=== PATIENT | male | born 1960 | race Caucasian/White ===

== ENCOUNTER 2021-04-18 13:11 | Inpatient (IN) ==
--- NOTE | 2021-04-18 13:16 | Emergency Department Note ---
Impression & Plan Bilateral pulmonary embolism, Primary adenocarcinoma of esophagus with metastasis ED Provider Note NAME: RUEL TURCIOS AGE: 60 SEX: M : 1960 ARRIVES VIA: Ambulance INFORMANT: Patient, ED PROVIDER(S): Mark Patton MD Chief Complaint: Shortness of breath HPI: Patient was seen due to concern for worsening shortness of breath. The patient unfortunately does have a history of esophageal cancer with metastases. The patient has received chemo and radiation treatment. The patient did have a recent thoracentesis completed last week with pulmonology. Patient denies any fevers or chills. He is vaccinated for Covid. Patient states that the shortness of breath is gotten worse progressively over the last 2 weeks. Patient denies any prior history of heart failure. The patient has no known history of DVT or PE. The patient does feel better with oxygen and sitting upright. The patient is a non-smoker. Patient denies any nausea or vomiting. The patient has had some difficulty with tolerating by mouth due to the patient's prior history of esophageal cancer. Patient has followed at [facility] but is transferring care locally with Dr. Anderson. Patient reportedly was in the low 90s prior to arrival. ROS: See HPI for pertinent positives and negatives. A total of 10 systems were reviewed and otherwise negative. Past medical history: See below Surgical history: See below Social history: See below Physical Exam: GENERAL: Mildly uncomfortable in appearance, wearing a mask. EYE EXAM: Normal conjunctiva. PERRL, no anisocoria and EOM's grossly intact w/o pain. NECK: Supple, no nuchal rigidity, no adenopathy, non-tender. No signs of meningismus. FROM of the neck with good chin to chest and neck extension. No stridor. LUNGS: Scant crackles bilateral bases. Normal chest wall mechanics. HEART: Tachycardic and regular, no MRG. ABDOMEN: Abdomen soft, non-tender, normo-active bowel sounds, no masses, no rebound or guarding. BACK: No CVA TTP. SKIN: No rashes and no bruising. UPPER EXTREMITIES: Upper extremities are grossly normal. LOWER EXTREMITIES: Grossly normal, no edema. Negative Homans' sign bilaterally. NEURO EXAM: A&O x3, cranial nerves II-XII grossly intact, normal speech, moves all 4 extremities on command w/o issue. Differential diagnoses: Reactive airway disease, pneumonia, pneumothorax, COPD, CHF, infections, cardiac ischemia, pulmonary embolism, musculoskeletal, gastrointestinal, as well as other pathologies. Course: Patient was seen and evaluated the bedside. Full history physical exam was performed. EKG interpreted by me Sinus tachycardia, rate of 103, normal intervals, normal axis, T wave inversion in lead III and aVF. No ST changes. Imaging Studies: See Below Cardiac monitoring: An order was placed for continuous cardiac monitoring. The monitor shows a rate of 102 with tachycardic and regular rhythm. MDM: Patient was seen due to concern for shortness of breath. Blood work was obtained and the patient did have a CT angiography completed. White count is normal. The patient's platelet count is unremarkable. Kidney function is otherwise unremarkable. Covid negative. CT angiography does show concern for bilateral PEs. I did give the on-call hospitalist who requested Lovenox. This was ordered. Heparin canceled. Patient was to be admitted by Dr. Nayak. Patient is tolerating nasal cannula at this time. Do not believe he requires TPA. Critical Care: I have personally spent 47 minutes of critical care time in direct management of this patient. This includes bedside care, interpretation of diagnostic studies, and testing, discussion with consultants, patient, and family members, and other require inpatient management activities. This 47 minutes is in excess of all separately billable procedures. Past Med/Surg History Medical History Dyslipidemia Hypothyroidism PORSHA on CPAP Primary adenocarcinoma of esophagus with metastasis Surgical History H/O inguinal hernia repair History of vasectomy Family History Father Heart disease Brother Heart disease Brother Heart disease Social History Smoking Status: Former smoker Hx Alcohol Use: No Hx Substance Use: No Preferred Language: Bahamian Communication Ability: Effective Supervisor Ditching Required: No Beliefs That Will Affect Care: None Current Living Situation: Spouse Feels Safe at Home: Yes Safety Concerns: Feels Safe At This Time Assistive Devices: Oxygen - Continuous Allergies Allergies Allergy/AdvReac Type Severity Reaction Status Date / Time No Known Allergies Allergy Unverified 04/18/21 15:01 Home Meds Home Medications Medication Instructions Recorded Confirmed atorvastatin 40 mg tablet (Lipitor) 40 mg PO DAILY 04/18/21 04/18/21 baclofen 10 mg tablet 10 mg PO DAILY 04/18/21 04/18/21 levothyroxine 112 mcg tablet 112 mcg PO DAILY 04/18/21 04/18/21 (Synthroid) lorazepam 0.5 mg tablet 1 mg PO Q8H PRN 04/18/21 04/18/21 olanzapine 5 mg tablet 5 mg PO HS 04/18/21 04/18/21 omeprazole 40 mg capsule,delayed 40 mg PO DAILY 04/18/21 04/18/21 release ondansetron HCl 8 mg tablet 8 mg PO Q8H PRN 04/18/21 04/18/21 oxycodone 10 mg tablet 10 mg PO Q4H PRN 04/18/21 04/18/21 prochlorperazine maleate 10 mg 10 mg PO Q6H PRN 04/18/21 04/18/21 tablet Results & Data (ED) Vital Signs Vital Signs - 24 hr 04/18/21 13:17 04/18/21 13:30 04/18/21 13:39 Temperature 36.7 C Temperature Source Oral Pulse Rate 102 H 100 H 106 H Pulse Rate [Apical] Pulse Rate from SpO2 Sensor 102 H 99 H Pulse Rhythm Regular Pulse Strength Normal Respiratory Rate 18 16 22 Respiratory Effort / Characteristics Non-Labored Spontaneous Respiratory Depth Normal Blood Pressure 103/70 Blood Pressure Mean 81 Blood Pressure Position Sitting Pulse Oximetry 95 96 92 Oxygen Delivery Method Nasal Cannula Oxygen Flow Rate Sepsis Recent Fever Within 48 Hours No Sepsis New/Unexplained Change in Mental Status N/A Sepsis Action Taken by Nursing No Action Required 04/18/21 13:44 04/18/21 14:00 Temperature Temperature Source Pulse Rate 106 H Pulse Rate [Apical] 102 H Pulse Rate from SpO2 Sensor 105 H Pulse Rhythm Pulse Strength Respiratory Rate 16 20 Respiratory Effort / Characteristics Spontaneous Respiratory Depth Blood Pressure Blood Pressure Mean Blood Pressure Position Pulse Oximetry 96 94 Oxygen Delivery Method Nasal Cannula Oxygen Flow Rate 2 Sepsis Recent Fever Within 48 Hours Sepsis New/Unexplained Change in Mental Status Sepsis Action Taken by [facility] Medications Current Medication List: was personally reviewed by me Laboratory Data Attestation: I reviewed the patient's lab results. Result diagrams: 04/19/21 07:25 10/18/21 07:25 Lab Results 04/18/21 04/18/21 04/18/21 Range/Units 14:13 14:13 14:13 WBC 8.41 (4.8-10.8) K/uL RBC 4.45 L (4.7-6.1) M/uL Hgb 12.6 L (14.0-18.0) g/dL Hct 38.3 L (42-52) % MCV 86.1 (80-100) fL MCH 28.3 (25-34) pg MCHC 32.9 (32-36) g/dL RDW Std Deviation 41.9 (36.4-46.3) fL RDW Coeff of Larry 13.5 (11.5-14.5) % Plt Count 126 L (130-400) K/uL MPV 9.4 (7.4-10.4) fL Immature Gran % (Auto) 1.9 % Neut % (Auto) 84.0 % Lymph % (Auto) 6.3 % Cataño % (Auto) 6.4 % Eos % (Auto) 1.0 % Baso % (Auto) 0.4 % Neut # (Auto) 7.07 H (1.4-6.5) K/uL Lymph # (Auto) 0.53 L (1.2-3.4) K/uL Cataño # (Auto) 0.54 (0.11-0.59) K/uL Eos # (Auto) 0.08 (0-0.5) K/uL Baso # (Auto) 0.03 (0-0.2) K/uL Immature Gran # (Auto) 0.16 H (0.00-0.02) K/uL APTT (21.0-31.0) Seconds PTT Ratio Sodium 133 L (136-145) mmol/L Potassium 3.9 (3.5-5.1) mmol/L Chloride 100 (98-107) mmol/L Carbon Dioxide 25 (21-32) mmol/L Anion Gap 9.0 (3-11) BUN 17 (7-18) mg/dl Creatinine 1.04 (0.6-1.4) mg/dl Est Cr Clr Drug Dosing 77.4 ml/min Est GFR ( Amer) 91.3 ml/min Est GFR (Non-Af Amer) 78.8 ml/min BUN/Creatinine Ratio 16.6 (10-20) Glucose 136 H (70-99) mg/dl Calcium 7.8 L (8.5-10.1) mg/dl Total Bilirubin 0.7 (0.2-1) mg/dl AST 15 (15-37) U/L ALT 16 (12-78) U/L Alkaline Phosphatase 69 (45-117) U/L Troponin I < 0.015 (0-0.045) ng/ml NT-Pro-B Natriuret Pep 191 (0-900) pg/ml Total Protein 6.2 L (6.4-8.2) gm/dl Albumin 2.2 L (3.4-5.0) gm/dl Globulin 4.0 (2.5-4.0) gm/dl Albumin/Globulin Ratio 0.6 L (0.9-2) COVID-19 Eval Order Covid19 at [facility] SARS-CoV-2 (PCR) (Negative) 04/18/21 04/18/21 Range/Units 14:13 14:13 WBC (4.8-10.8) K/uL RBC (4.7-6.1) M/uL Hgb (14.0-18.0) g/dL Hct (42-52) % MCV (80-100) fL MCH (25-34) pg MCHC (32-36) g/dL RDW Std Deviation (36.4-46.3) fL RDW Coeff of Larry (11.5-14.5) % Plt Count (130-400) K/uL MPV (7.4-10.4) fL Immature Gran % (Auto) % Neut % (Auto) % Lymph % (Auto) % Cataño % (Auto) % Eos % (Auto) % Baso % (Auto) % Neut # (Auto) (1.4-6.5) K/uL Lymph # (Auto) (1.2-3.4) K/uL Cataño # (Auto) (0.11-0.59) K/uL Eos # (Auto) (0-0.5) K/uL Baso # (Auto) (0-0.2) K/uL Immature Gran # (Auto) (0.00-0.02) K/uL APTT 27.6 (21.0-31.0) Seconds PTT Ratio 1.0 Sodium (136-145) mmol/L Potassium (3.5-5.1) mmol/L Chloride (98-107) mmol/L Carbon Dioxide (21-32) mmol/L Anion Gap (3-11) BUN (7-18) mg/dl Creatinine (0.6-1.4) mg/dl Est Cr Clr Drug Dosing ml/min Est GFR ( Amer) ml/min Est GFR (Non-Af Amer) ml/min BUN/Creatinine Ratio (10-20) Glucose (70-99) mg/dl Calcium (8.5-10.1) mg/dl Total Bilirubin (0.2-1) mg/dl AST (15-37) U/L ALT (12-78) U/L Alkaline Phosphatase (45-117) U/L Troponin I (0-0.045) ng/ml NT-Pro-B Natriuret Pep (0-900) pg/ml Total Protein (6.4-8.2) gm/dl Albumin (3.4-5.0) gm/dl Globulin (2.5-4.0) gm/dl Albumin/Globulin Ratio (0.9-2) COVID-19 Eval Order SARS-CoV-2 (PCR) NEGATIVE (Negative) Administered Medications Atorvastatin Calcium (Atorvastatin 40 Mg Tab) 40 mg PO DAILY MARYAN Stop: 05/19/21 08:59 Last Admin: 04/19/21 08:04 Dose: 40 mg Documented by: [id number] Baclofen (Baclofen 10 Mg Tab) 10 mg PO DAILY MARYAN Stop: 05/19/21 08:59 Last Admin: 04/19/21 08:04 Dose: 10 mg Documented by: [id number] Enoxaparin Sodium (Enoxaparin 80 Mg/0.8 Ml Syr) 80 mg SQ Q12H MARYAN Stop: 05/18/21 16:59 Last Admin: 04/19/21 06:02 Dose: 80 mg Documented by: [id number] Admin: 04/18/21 17:12 Dose: 80 mg Documented by: [id number] Guaifenesin (Guaifenesin 600 Mg Tabcr) 600 mg PO Q12 MARYAN Stop: 05/18/21 21:13 Last Admin: 04/19/21 08:03 Dose: 600 mg Documented by: [id number] Admin: 04/18/21 22:33 Dose: 600 mg Documented by: [id number] Sodium Chloride (Nss 1000ml) 1,000 mls @ 125 mls/hr IV .Q8H MARYAN Stop: 05/18/21 16:29 Last Admin: 04/19/21 06:03 Dose: 125 mls/hr Documented by: [id number] Infusion: 04/19/21 05:44 Dose: 125 mls/hr Documented by: [id number] Admin: 04/18/21 21:44 Dose: 125 mls/hr Documented by: [id number] Infusion: 04/18/21 21:44 Dose: 125 mls/hr Documented by: [id number] Admin: 04/18/21 17:12 Dose: 125 mls/hr Documented by: [id number] Piperacillin Sod/Tazobactam (Sod 3.375 gm/ Dextrose) 115 mls @ 28.75 mls/hr IV Q8H MARYAN; Protocol Stop: 04/26/21 01:59 Last Infusion: 04/19/21 05:14 Dose: 0 mls/hr Documented by: [id number] Admin: 04/19/21 01:11 Dose: 28.8 mls/hr Documented by: [id number] Levothyroxine Sodium (Levothyroxine Sodium 112 Mcg Tablet) 112 mcg PO DAILYBB MARYAN Stop: 05/19/21 06:29 Last Admin: 04/19/21 06:03 Dose: 112 mcg Documented by: [id number] Olanzapine (Olanzapine 5 Mg Tablet) 5 mg PO HS MARYAN Stop: 05/18/21 21:13 Last Admin: 04/18/21 22:33 Dose: 5 mg Documented by: [id number] Oxycodone HCl (Oxycodone Hcl Ir 5 Mg Tab (Immediate Release)) 10 mg PO Q4H PRN PRN Reason: Pain Stop: 05/02/21 21:13 Last Admin: 04/19/21 08:06 Dose: 10 mg Documented by: [id number] Pantoprazole Sodium (Pantoprazole 40 Mg Tab) 40 mg PO DAILY MARYAN Stop: 05/19/21 08:59 Last Admin: 04/19/21 08:03 Dose: 40 mg Documented by: [id number] Discontinued Medications Albuterol (Albut/Ipratrop 3mg/0.5mg Neb 3 Ml Vial) 3 ml INH NOW STA Stop: 04/18/21 13:26 Last Admin: 04/18/21 13:43 Dose: 3 ml Documented by: [id number] Calcium Gluconate () 1,000 mg in 60 mls @ 240 mls/hr IV NOW STA Stop: 04/18/21 15:26 Last Infusion: 04/18/21 16:10 Dose: 0 mls/hr Documented by: [id number] Admin: 04/18/21 15:52 Dose: 240 mls/hr Documented by: [id number] Piperacillin Sod/Tazobactam (Sod 4.5 gm/ Dextrose) 120 mls @ 200 mls/hr IV 2200 ONE; Protocol Stop: 04/18/21 22:35 Last Infusion: 04/18/21 23:08 Dose: 0 mls/hr Documented by: [id number] Admin: 04/18/21 22:32 Dose: 200 mls/hr Documented by: [id number] Ioversol (Optiray 320 125ml) 112 ml IV ONCE ONE Stop: 04/18/21 15:37 Last Admin: 04/18/21 15:36 Dose: 112 ml Documented by: [id number] Methylprednisolone (Methylprednisolone 125 Mg/2 Ml Vial) 40 mg IV NOW STA Stop: 04/18/21 13:26 Last Admin: 04/18/21 14:20 Dose: 40 mg Documented by: [id number] Miscellaneous Information (Consult Pharmacy) 1 ea N/A NOW STA Stop: 04/18/21 18:26 Last Admin: 04/19/21 00:46 Dose: 1 ea Documented by: [id number] Imaging Data Radiologist's Impression: Chest CTA 04/18/21 13:25 CT ANGIOGRAPHY OF THE CHEST, PULMONARY EMBOLUS PROTOCOL CLINICAL HISTORY: Dyspnea, h/o esophageal CA, recent thoracentesis COMPARISON STUDY: Chest radiograph performed earlier today. TECHNIQUE: Following IV administration of 112 mL of Optiray, helical axial images of the chest were obtained utilizing the pulmonary embolus protocol. Maximal intensity projections and sagittal and coronal reformats were viewed on an independent 3D workstation. IV contrast was administered without complication. Automated exposure control was utilized for the study. A dose lowering technique was utilized adhering to the principles of ALARA. CT DOSE: 421.02 mGy.cm FINDINGS: Right subclavian [id number] is in place. Extensive right-sided pulmonary emboli are present. These include emboli within the distal right pulmonary artery. Several small left-sided pulmonary emboli are present. There is no definite CT evidence for right heart strain. No pericardial effusion is present. A small left pleural effusion is noted. There is no pneumothorax. Extensive left lower lobe airspace opacity is present. Foci of diminished parenchymal enhancement within the consolidated left lower lobe are noted. Innumerable pulmonary nodules are noted. Index right upper lobe nodule on image 199 measures 1.3 cm. Many of these nodules have irregular margins. Central airways are patent. Note is made of masslike thickening at the gastroesophageal junction. There is no pericardial effusion. There are multiple hypodense hepatic lesions which measure up to 2.5 cm. There is an indeterminate 1.5 cm nodule along the anterior aspect of the spleen. No suspicious lesions are identified within visualized skeletal structures. IMPRESSION: 1. Extensive right-sided pulmonary emboli and several small left-sided pulmonary emboli. 2. Pulmonary and hepatic metastases, as described above. 3. Mass-like thickening at the gastroesophageal junction which could reflect the primary tumor. 4. Small left pleural effusion. Extensive left lower lobe and lingular opacity. This could reflect pneumonia or atelectasis. Underlying infarct within left lower lobe cannot be excluded. ACT 112: Negative or not required by law. Electronically signed by: Tavo Pham M.D. 04/18/2021 3:57 PM Chest X-Ray 04/18/21 13:25 XR chest 1V portable CLINICAL HISTORY: Dyspnea, h/o esophageal CA, recent thoracentesis COMPARISON STUDY: No previous studies for comparison. FINDINGS: Right subclavian [id number] is in place. There is no pneumothorax. Small left pleural effusion is noted with left basilar opacity. No pneumothorax is present. There is reticulonodular interstitial thickening. IMPRESSION: 1. Small left pleural effusion with left basilar opacity. No pneumothorax. 2. Nonspecific reticulonodular interstitial thickening. ACT 112: Negative or not required by law. Electronically signed by: Tavo Pham M.D. 04/18/2021 1:36 PM Discharge Plan Visit Data Chief Complaint: Shortness of Breath/Dyspnea Stated Complaint: SOB ED Provider: Mark Patton Discharge Problem: Bilateral pulmonary embolism, Primary adenocarcinoma of esophagus with metastasis Patient Disposition: Admitted As Inpatient Discharge Instructions Interventions: ED Discharge Assessment Last Done: 04/18/21 19:55
[2021-04-18] MEDS ORDERED: ALBUT/IPRATROP 3MG/0.5MG NEB 3 ML VIAL INH STA (13:25)
[2021-04-18] MEDS ORDERED: methylPREDNISolone 125 MG/2 ML VIAL IV STA (13:25)
--- NOTE | 2021-04-18 13:38 | XRay Report ---
XR chest 1V portable CLINICAL HISTORY: Dyspnea, h/o esophageal CA, recent thoracentesis COMPARISON STUDY: No previous studies for comparison. FINDINGS: Right subclavian [id number] is in place. There is no pneumothorax. Small left pleural ef fusion is noted with left basilar opacity. No pneumothorax is present. There is reticulonodular inter stitial thickening. IMPRESSION: 1. Small left pleural effusion with left basilar opacity. No pneumothorax. 2. Nonspecific reticulonodular interstitial thickening. ACT 112: Negative or not required by law. Electronically signed by: Tavo Pham M.D. 04/18/2021 1:36 PM
[2021-04-18 14:22] LABS: Basophils # (auto) 0.03 K/uL (0-0.2); Basophils % (auto) 0.4 %; Eosinophils # (auto) 0.08 K/uL (0-0.5); Hematocrit (blood only) 38.3 % (42-52); Hemoglobin 12.6 g/dL (14.0-18.0); Immature Granulocytes # (auto) 0.16 K/uL (0.00-0.02); Immature Granulocytes % (auto) 1.9 %; Lymphocytes # (auto) 0.53 K/uL (1.2-3.4); Lymphocytes % (auto) 6.3 %; Mean Corpuscular Hemoglobin 28.3 pg (25-34); Mean Corpuscular Hgb Conc 32.9 g/dL (32-36); Mean Corpuscular Volume 86.1 fL (80-100); Mean Platelet Volume 9.4 fL (7.4-10.4); Monocytes # (auto) 0.54 K/uL (0.11-0.59); Monocytes % (auto) 6.4 %; Neutrophils # (auto) 7.07 K/uL (1.4-6.5); Platelet Count 126 K/uL (130-400); RDW Coefficient of Variation 13.5 % (11.5-14.5); RDW Standard Deviation 41.9 fL (36.4-46.3); Red Blood Count 4.45 M/uL (4.7-6.1); White Blood Count 8.41 K/uL (4.8-10.8)
[2021-04-18 14:42] LABS: Alanine Aminotransferase 16 U/L (12-78); Albumin Level 2.2 gm/dl (3.4-5.0); Aspartate Aminotransferase 15 U/L (15-37); BUN Creatinine Ratio 16.6 (10-20); Blood Urea Nitrogen 17 mg/dl (7-18); Calcium 7.8 mg/dl (8.5-10.1); Carbon Dioxide 25 mmol/L (21-32); Chloride 100 mmol/L (98-107); Creatinine Clr Calc Pharmacy 77.4 ml/min; Est GFR (African American) 91.3 ml/min; Est GFR (Non-African American) 78.8 ml/min; Glucose 136 mg/dl (70-99); Potassium 3.9 mmol/L (3.5-5.1); Sodium 133 mmol/L (136-145)
[2021-04-18 14:47] LABS: Albumin Globulin Ratio 0.6 (0.9-2); Alkaline Phosphatase 69 U/L (45-117); Bilirubin,Total 0.7 mg/dl (0.2-1); NT Pro B Type Natriuretic Pept 191 pg/ml (0-900); Total Protein 6.2 gm/dl (6.4-8.2); Troponin I < 0.015 ng/ml (0-0.045)
[2021-04-18] MEDS ORDERED: CALCIUM GLUCONATE 1,000 MG/60 ML BAG IV STA (15:12)
[2021-04-18] MEDS ORDERED: OPTIRAY 320 125ml IV ONE (15:36)
--- NOTE | 2021-04-18 15:58 | CT Scan Report ---
CT ANGIOGRAPHY OF THE CHEST, PULMONARY EMBOLUS PROTOCOL CLINICAL HISTORY: Dyspnea, h/o esophageal CA, recent thoracentesis COMPARISON STUDY: Chest radiograph performed earlier today. TECHNIQUE: Following IV administration of 112 mL of Optiray, helical axial images of the chest were o btained utilizing the pulmonary embolus protocol. Maximal intensity projections and sagittal and cor onal reformats were viewed on an independent 3D workstation. IV contrast was administered without co mplication. Automated exposure control was utilized for the study. A dose lowering technique was ut ilized adhering to the principles of ALARA. CT DOSE: 421.02 mGy.cm FINDINGS: Right subclavian [id number] is in place. Extensive right-sided pulmonary emboli are pre sent. These include emboli within the distal right pulmonary artery. Several small left-sided pulmona ry emboli are present. There is no definite CT evidence for right heart strain. No pericardial effusi on is present. A small left pleural effusion is noted. There is no pneumothorax. Extensive left lower lobe airspace opacity is present. Foci of diminished parenchymal enhancement within the consolidated left lower lobe are noted. Innumerable pulmonary nodules are noted. Index right upper lobe nodule on image 199 measures 1.3 cm. Many of these nodules have irregular margins. Central airways are patent. Note is made of masslike thickening at the gastroesophageal junction. There is no pericardial effusi on. There are multiple hypodense hepatic lesions which measure up to 2.5 cm. There is an indeterminat e 1.5 cm nodule along the anterior aspect of the spleen. No suspicious lesions are identified within visualized skeletal structures. IMPRESSION: 1. Extensive right-sided pulmonary emboli and several small left-sided pulmonary emboli. 2. Pulmonary and hepatic metastases, as described above. 3. Mass-like thickening at the gastroesophageal junction which could reflect the primary tumor. 4. Small left pleural effusion. Extensive left lower lobe and lingular opacity. This could reflect pn eumonia or atelectasis. Underlying infarct within left lower lobe cannot be excluded. ACT 112: Negative or not required by law. Electronically signed by: Tavo Pham M.D. 04/18/2021 3:57 PM
[2021-04-18] MEDS ORDERED: Heparin IV Adult Wt-Based Standard *NO* Bolus Protocol IV ONE (16:17)
[2021-04-18] MEDS ORDERED: HEPARIN SODIUM/DEXTROSE 25,000 UNITS/500 ML BAG IV SCH (16:45)
[2021-04-18] MEDS ORDERED: ENOXAPARIN 1 MG/KG SQ STA (16:48)
[2021-04-18 17:07] LABS: Partial Thromboplastin Time 27.6 Seconds (21.0-31.0)
[2021-04-18] MEDS: ENOXAPARIN 80 MG/0.8 ML SYR SQ SCH (17:12)
[2021-04-18] MEDS: SODIUM CHLORIDE 0.9% 1000ML 1,000 ML IV SCH ×2 (17:12→21:44)
[2021-04-18] MEDS ORDERED: CONSULT PHARMACY STA (18:25)
[2021-04-18] MEDS ORDERED: ONDANSETRON INJ 2 MG/ML 2 ML VIAL IV PRN (21:14)
[2021-04-18] MEDS ORDERED: PROCHLORPERAZINE MALEATE 10 MG TAB PO PRN (21:14)
[2021-04-18] MEDS ORDERED: ACETAMINOPHEN 325 MG TAB PO PRN (21:14)
[2021-04-18] MEDS ORDERED: LORazepam 1 MG TAB PO PRN (21:14)
[2021-04-18] MEDS ORDERED: PIPERACILL/TAZOBAC CONSULT ACTIVE PRN (21:42)
--- NOTE | 2021-04-18 21:44 | History & Physical Report ---
Date of Service April 18, 2021 Assessment & Plan (1) Bilateral pulmonary embolism: Plan: -admit to med/surg with tele -patient presenting from home with reports of shortness of breath that began suddenly this morning -CTA chest showing BL pulmonary embolism, patient saturating greater than 90% on room air, placed on 2 L for comfort. -Given underlying cancer diagnosis, start Lovenox 1 mg/kg every 12 hours -CT chest also questioning left lower lobe infiltrate, start IV Zosyn (2) Primary adenocarcinoma of esophagus with metastasis: Plan: -With metastatic abdominal lymphadenopathy, liver and lung -Has been receiving care at [facility], s/p FOLFOX on 03/30, also completed 12 radiation treatments -s\P thoracentesis on 04/14 -to establish care locally with Dr. Anderson -Patient and requesting palliative evaluation -full liquid diet as tolerated (3) Hypothyroidism: Plan: -continue levothyroxine (4) DVT prophylaxis: Plan: -on full dose Lovenox as above Admission and Anticipated Discharge Date Admission Date: April 18, 2021 History of Present Illness Chief Complaint: Shortness of Breath Primary Care Provider: Dr. Steven 60 year old male with PMH hypothyroidism, PORSHA, metastatic adenocarcinoma of esophagus, and other problems listed below who presents to the ED with reports of shortness of breath. Patient received cancer diagnosis 01/2021 and has been receiving care at [facility], recently transferring care locally. While at [facility], patent received one dose of chemo (FOLFOX) on 03/30, unfortunately due to ongoing nausea, patient has had no further treatments. He also completed 12 radiation treatments. On 04/14 patient underwent thoracentesis. During the 3 weeks the patient was receiving care at [facility], he was receiving IVF daily as an outpatient due to poor PO intake. Patient reports waking up this morning with severe shortness of breath. He also reports a cough productive for yellow sputum. No fevers or chills. Reports chronic left sided chest/back/rib pain since cancer diagnosis. Appetite remains poor and patient continues to struggle with dysphagia. No abdominal pain. Has intermitter nausea and vomiting. No diarrhea. Denies hematemsis and coffee ground emesis. No lightheadedness, dizziness, diaphoresis, and syncope. Denies urinary symptoms. In the ED, CTA chest shows BL PE. Patient is saturating > 90% on room air but was placed on 2L for comfort. Labs unremarkable. Patient was given full dose Lovenox. Allergies Allergy/AdvReac Type Severity Reaction Status Date / Time No Known Allergies Allergy Unverified 04/18/21 15:01 Home Medications Medication Instructions Recorded Confirmed Type atorvastatin 40 mg tablet (Lipitor) 40 mg PO DAILY 04/18/21 04/18/21 History baclofen 10 mg tablet 10 mg PO DAILY 04/18/21 04/18/21 History levothyroxine 112 mcg tablet 112 mcg PO DAILY 04/18/21 04/18/21 History (Synthroid) lorazepam 0.5 mg tablet 1 mg PO Q8H PRN 04/18/21 04/18/21 History olanzapine 5 mg tablet 5 mg PO HS 04/18/21 04/18/21 History omeprazole 40 mg capsule,delayed 40 mg PO DAILY 04/18/21 04/18/21 History release ondansetron HCl 8 mg tablet 8 mg PO Q8H PRN 04/18/21 04/18/21 History oxycodone 10 mg tablet 10 mg PO Q4H PRN 04/18/21 04/18/21 History prochlorperazine maleate 10 mg 10 mg PO Q6H PRN 04/18/21 04/18/21 History tablet Past Med/Surg History Medical History (Updated 04/19/21 @ 15:23 by Magan Carrera MD) Abdominal pain Dyslipidemia Dysphagia Hypothyroidism Nausea PORSHA on CPAP Palliative care encounter Primary adenocarcinoma of esophagus with metastasis Shortness of breath Situational anxiety Surgical History H/O inguinal hernia repair History of vasectomy Family History Father Heart disease Brother Heart disease Brother Heart disease Social History Smoking Status: Former smoker Hx Alcohol Use: No Hx Substance Use: No Preferred Language: Maltese Communication Ability: Effective Police Commanding Officer Required: No Beliefs That Will Affect Care: None marital status: Current Living Situation: Spouse Feels Safe at Home: Yes Safety Concerns: Feels Safe At This Time Assistive Devices: Cane Review of Systems Review of Systems: ROS per HPI, all other systems reviewed and negative Physical Exam Constitutional: WD/WN, vitals as above Eyes: PERRL, conjunctivae normal, anicteric sclerae ENMT: external ear and nose normal, oropharynx normal Respiratory: normal respiratory effort; no respiratory distress Auscultation: + diminished lung sounds Cardiovascular: Rate/Rhythm: regular rate and regular rhythm Vessels: normal peripheral pulses Extremities: no edema Gastrointestinal (Abdomen): normal bowel sounds, soft, nontender, no hepatosplenomegaly Musculoskeletal: no cyanosis or clubbing, extremities motor strength 5/5 Skin: no rashes, warm and dry Neurologic: PERRL, EOMI, accommodation nl, no face palsy, no dysarthria Psychiatric: A+Ox3, euthymic affect Affect: + tearful affect (at times) Results & Data Results & Data ([facility]) Vital Signs (Past 12 Hours) Vital Signs Temp Pulse Pulse Resp BP Pulse Ox 04/18/21 19:55 36.8 C 80 16 98/63 L 96 04/18/21 19:30 83 10 L 98/63 L 96 04/18/21 17:00 89 27 H 110/65 94 04/18/21 14:00 106 H 20 94 04/18/21 13:44 102 H 16 96 04/18/21 13:39 36.7 C 106 H 22 103/70 92 04/18/21 13:30 100 H 16 96 04/18/21 13:17 102 H 18 95 Laboratory Results Short CBC 04/18/21 Range/Units 14:13 WBC 8.41 (4.8-10.8) K/uL Hgb 12.6 L (14.0-18.0) g/dL Hct 38.3 L (42-52) % Plt Count 126 L (130-400) K/uL BMP 04/18/21 14:13 Sodium 133 L Potassium 3.9 Chloride 100 Carbon Dioxide 25 BUN 17 Creatinine 1.04 Glucose 136 H Calcium 7.8 L Cardiac Enzymes 04/18/21 Range/Units 14:13 Troponin I < 0.015 (0-0.045) ng/ml Liver Function 04/18/21 Range/Units 14:13 Total Bilirubin 0.7 (0.2-1) mg/dl AST 15 (15-37) U/L ALT 16 (12-78) U/L Alkaline Phosphatase 69 (45-117) U/L Albumin 2.2 L (3.4-5.0) gm/dl Diagnostic Findings Chest CTA 04/18/21 13:25 CT ANGIOGRAPHY OF THE CHEST, PULMONARY EMBOLUS PROTOCOL CLINICAL HISTORY: Dyspnea, h/o esophageal CA, recent thoracentesis COMPARISON STUDY: Chest radiograph performed earlier today. TECHNIQUE: Following IV administration of 112 mL of Optiray, helical axial images of the chest were obtained utilizing the pulmonary embolus protocol. Maximal intensity projections and sagittal and coronal reformats were viewed on an independent 3D workstation. IV contrast was administered without complication. Automated exposure control was utilized for the study. A dose lowering technique was utilized adhering to the principles of ALARA. CT DOSE: 421.02 mGy.cm FINDINGS: Right subclavian Hyfgoz-s-Pazt is in place. Extensive right-sided pulmonary emboli are present. These include emboli within the distal right pulmonary artery. Several small left-sided pulmonary emboli are present. There is no definite CT evidence for right heart strain. No pericardial effusion is present. A small left pleural effusion is noted. There is no pneumothorax. Extensive left lower lobe airspace opacity is present. Foci of diminished parenchymal enhancement within the consolidated left lower lobe are noted. Innumerable pulmonary nodules are noted. Index right upper lobe nodule on image 199 measures 1.3 cm. Many of these nodules have irregular margins. Central airways are patent. Note is made of masslike thickening at the gastroesophageal junction. There is no pericardial effusion. There are multiple hypodense hepatic lesions which measure up to 2.5 cm. There is an indeterminate 1.5 cm nodule along the anterior aspect of the spleen. No suspicious lesions are identified within visualized skeletal structures. IMPRESSION: 1. Extensive right-sided pulmonary emboli and several small left-sided pulmonary emboli. 2. Pulmonary and hepatic metastases, as described above. 3. Mass-like thickening at the gastroesophageal junction which could reflect the primary tumor. 4. Small left pleural effusion. Extensive left lower lobe and lingular opacity. This could reflect pneumonia or atelectasis. Underlying infarct within left lower lobe cannot be excluded. ACT 112: Negative or not required by law. Electronically signed by: Tavo Pham M.D. 04/18/2021 3:57 PM Chest X-Ray 04/18/21 13:25 XR chest 1V portable CLINICAL HISTORY: Dyspnea, h/o esophageal CA, recent thoracentesis COMPARISON STUDY: No previous studies for comparison. FINDINGS: Right subclavian Obngwh-e-Vwoh is in place. There is no pneumothorax. Small left pleural effusion is noted with left basilar opacity. No pneumothorax is present. There is reticulonodular interstitial thickening. IMPRESSION: 1. Small left pleural effusion with left basilar opacity. No pneumothorax. 2. Nonspecific reticulonodular interstitial thickening. ACT 112: Negative or not required by law. Electronically signed by: Tavo Pham M.D. 04/18/2021 1:36 PM Code Status & VTE Plan Code Status Patient is a DNR as per my discussion with him. VTE Prophylaxis Plan VTE Prophylaxis will be ordered: No Supervising Physician Co-Signing Physician Notes Attending Addendum: delayed entry date of service noted above care coordinated with EUGENE Roland please refer to her notes for full details, I agree with her notes patient seen and examined, records reviewed by myself as well on exam, patient seen resting in bed, comfortable Sandra at bedside states he feels somewhat improved less chest pain breathing also improving no other symptoms VS noted and reviewed oriented x 3, not in distress, speaks in sentences with no effort nor accessory muscle use normal rate, regular rhythm, no murmurs mild rhonchi, left base port on the right chest wall - no issues non distended, soft, nontender no bipedal edema, erythema, warmth no neuro deficits WBC 8 Hg 12 Crea 1 ASSESSMENT AND PLAN BILATERAL PE IN THE SETTING OF ESOPHAGEAL CANCER Lovenox BID will consult Pulm POSSIBLE L LUNG PNEUMONIA Zosyn IV other diagnoses and plan of care as per EUGENE Roland's notes Israel Nayak MD
[2021-04-18] MEDS ORDERED: PIPERACILLIN/TAZOBACTAM 4.5 GM in DEXTROSE 5% 100 ML IV ONE (22:00)
[2021-04-18] MEDS: guaiFENesin 600 MG TABCR PO SCH (22:33)
[2021-04-18] MEDS: OLANZapine 5 MG TABLET PO SCH (22:33)
[2021-04-19] MEDS: PIPERACILLIN/TAZOBACTAM 3.375 GM in DEXTROSE 5% 100 ML IV SCH ×2 (01:11→10:15)
[2021-04-19] MEDS: ENOXAPARIN 80 MG/0.8 ML SYR SQ SCH ×2 (06:02→16:45)
[2021-04-19] MEDS: SODIUM CHLORIDE 0.9% 1000ML 1,000 ML IV SCH ×2 (06:03→14:30)
[2021-04-19] MEDS: LEVOTHYROXINE SODIUM 112 MCG TABLET PO SCH (06:03)
[2021-04-19 07:43] LABS: Hematocrit (blood only) 35.2 % (42-52); Hemoglobin 11.7 g/dL (14.0-18.0); Mean Corpuscular Hemoglobin 28.5 pg (25-34); Mean Corpuscular Hgb Conc 33.2 g/dL (32-36); Mean Corpuscular Volume 85.9 fL (80-100); Mean Platelet Volume 9.9 fL (7.4-10.4); Platelet Count 131 K/uL (130-400); RDW Coefficient of Variation 13.5 % (11.5-14.5); RDW Standard Deviation 41.5 fL (36.4-46.3); White Blood Count 8.46 K/uL (4.8-10.8)
[2021-04-19] MEDS: guaiFENesin 600 MG TABCR PO SCH ×2 (08:03→20:26)
[2021-04-19] MEDS: PANTOprazole 40 MG TAB PO SCH (08:03)
[2021-04-19] MEDS: ATORVASTATIN 40 MG TAB PO SCH (08:04)
[2021-04-19] MEDS: BACLOFEN 10 MG TAB PO SCH (08:04)
[2021-04-19] MEDS: oxyCODONE HCL IR 5 MG TAB (IMMEDIATE RELEASE) PO PRN (08:06)
[2021-04-19 08:19] LABS: BUN Creatinine Ratio 19.7 (10-20); Creatinine Clr Calc Pharmacy 91.5 ml/min; Est GFR (African American) 109.7 ml/min; Est GFR (Non-African American) 94.7 ml/min
--- NOTE | 2021-04-19 09:49 | Palliative Care Consultation ---
Date of Consultation April 19, 2021 Assessment & Plan (1) Palliative care encounter: Mr. Rocha is a 60 year old male that presented to the [facility] with shortness of breath and was later diagnosed with a PE. He has metastatic esophageal cancer that was diagnosed on February [address] Fox after a second EGD and ultrasound guided biopsy. He received one dose of FOLFOX for treatment on March 30 at [facility] but due to intractable nausea, has not resumed chemotherapy treatment. He has completed 10 fractions of radiation and even had some follow up and evaluation at [facility]. He was scheduled to see Dr. Anderson; locally, however, did not have this appointment yet, scheduled for 04/29. A thoracentesis was performed on April 14 with 650mL removed which was his initial thoracentesis. He recently was informed by [facility] that his cancer has transitioned from Stage III to Stage IV. Additional PMH includes hypothyroidism and PORSHA. Palliative Medicine was consulted to discuss overall goals of care. I was able to meet with Mr. Soriano at his bedside. The patient is AAOx3 and able to have a meaningful conversation. The patient was tearful throughout our conversation. 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 They enjoy kayaking, own a pon[employer]istrive[place] boat, and just purchased a intermediate home outside of [place], [place]. The patient has three adult children: Jaspal (just graduated high school last year), Rachel who is local and Von who is in [place]. They do not have any grandchildren. He indicated that he would like to have a living will in place. I did speak with Twyla Hines with service excellence who will reach out to Siddharth to proceed with starting this process. He mentioned that he and Sandra have discussed his care and she does not want him to give up, but he is realistic and if his time is limited, he would want to remain out of the hospital and have his symptoms managed. He said that he is scared of leaving his family, but does have comfort that they will be financially taken care of. He has strong maryam and is not scared of the after process. We discussed writing milestone letters to his adult children and he was very interested in doing this, as he feels it will be meaningful to him and give him purpose right now. Overall, he feels content with his career success, being happily for 32 years, and raising three children. I went back to the patients room and his , Sandra, was at his bedside. We reviewed all of the above and all are in agreement that they would like to proceed with the appointment scheduled on 04/[address] Anderson to discuss over all prognosis/life expectancy timeframe, and possibly then transition to a hospice approach to his care. Patient, in the meantime, agreeable to see [facility] Palliative Medicine team for continued symptom management as they are close geographically to [place]. We discussed his code status and confirmed that he is a DNR/DNI in the event of cardiac or respiratory arrest. This has been reflected in the computer. He indicated that his main goal at the end of his life is to not struggle and have his pain managed as well as possible. He indicated numerous times that as things progress he would like to be at their new house on the [place] and have peace at the end of his life. Please see below for symptom management. The above was discussed in detail with the hospitalist and case management. Palliative Medicine will follow closely. (2) Abdominal pain: Pt describes pretty constant left lower abdominal pain with radiation to the right lower abdomen, up through his anterior chest, and further radiating into his right scapular and neck region. At rest, he notes this pain to be 4/10. The patient currently has Roxicodone 10mg Q4 PRN (only has used one dose in 24 hours), but does not have anything for long acting pain. Will start MS Contin 15 mg PO BID. Discussed with the patient and he is willing to try it. If patient has difficulty with swallowing, will consider other options. Continue Baclofen 10 mg daily. (3) Shortness of breath: Pt currently on 2LNC and is being treated for pneumonia as well, on abx. Patient had a thoracentesis on 04/14 with 650mL removed. We discussed this and he asked if he would have to have another one performed at some point. I explained that since it was the first time he had fluid removed, we have to wait and see how quickly does the fluid reaccumulate, which can help from a prognosis standpoint. (4) Nausea: Pt does have Zofran scheduled PRN, but in discussion with him, it appears that routine dosing allows for better symptom management for him, at least at home. Will schedule Zofran 4 mg IV Q6. (5) Situational anxiety: Pt with situational anxiety. He is very tearful throughout the encounter, I encouraged continued emotion presence as it is important to process his emotions in a positive manner. Ativan 1 mg Q8 PRN currently ordered. Discussed scheduling his Ativan, which he was receptive to. Will schedule routine Ativan 1 mg Q8. Continue Zyprexa 5 mg QHS (6) Primary adenocarcinoma of esophagus with metastasis: Recently [facility] progressed his cancer from stage III to stage IV and advised that his case is now confirmed terminal. Would be helpful for the patient and his to have a call with [facility] provider for actual prognosis life expectancy timeframe. We did discuss the term 'terminal' likely being 6 months; however, suggest they confirm with the oncologist. (7) Dysphagia: Sometimes it feels like he has a lump in his throat, but he is still able to swallow most of his medications. He is able to tolerate liquids, cream of wheat, applesauce, and oatmeal. He would love to eat a cheeseburger, but can't. History of Present Illness Reason for Consultation: Goals of care Requesting Physician: Meena KNIGHT Attending Physician: Israel Nayak MD History of Present Illness Mr. Rocha is a 60 year old male that presented to the [facility] with shortness of breath and was later diagnosed with a PE. He has metastatic esophageal cancer that was diagnosed in January 2021 at [facility]. he received one dose of FOLFOX for treatment on March 30 but due to intractable nausea, has not resumed treatment. Additional PMH includes hypothyroidism and PORSHA. A Thoracentesis was performed on April 14. Palliative Medicine was consulted to discuss overall goals of care. Please see A/P for further details. Thanks for involving Palliative Medicine with this individual. Allergies Allergy/AdvReac Type Severity Reaction Status Date / Time No Known Allergies Allergy Unverified 04/18/21 15:01 Home Medications Medication Instructions Recorded Confirmed Type atorvastatin 40 mg tablet (Lipitor) 40 mg PO DAILY 04/18/21 04/18/21 History baclofen 10 mg tablet 10 mg PO DAILY 04/18/21 04/18/21 History levothyroxine 112 mcg tablet 112 mcg PO DAILY 04/18/21 04/18/21 History (Synthroid) lorazepam 0.5 mg tablet 1 mg PO Q8H PRN 04/18/21 04/18/21 History olanzapine 5 mg tablet 5 mg PO HS 04/18/21 04/18/21 History omeprazole 40 mg capsule,delayed 40 mg PO DAILY 04/18/21 04/18/21 History release ondansetron HCl 8 mg tablet 8 mg PO Q8H PRN 04/18/21 04/18/21 History oxycodone 10 mg tablet 10 mg PO Q4H PRN 04/18/21 04/18/21 History prochlorperazine maleate 10 mg 10 mg PO Q6H PRN 04/18/21 04/18/21 History tablet Patient History Medical History (Updated 04/19/21 @ 11:39 by EUGENE Meyer) Abdominal pain Dyslipidemia Dysphagia Hypothyroidism Nausea PORSHA on CPAP Palliative care encounter Primary adenocarcinoma of esophagus with metastasis Shortness of breath Situational anxiety Surgical History H/O inguinal hernia repair History of vasectomy Family History Father Heart disease Brother Heart disease Brother Heart disease Social History Smoking Status: Former smoker Hx Alcohol Use: No Hx Substance Use: No Preferred Language: Macedonian Communication Ability: Effective Statistician Theoretical Required: No Beliefs That Will Affect Care: None marital status: Current Living Situation: Spouse Feels Safe at Home: Yes Safety Concerns: Feels Safe At This Time Assistive Devices: Cane Review of Systems Review of Systems: Cross Timbers System Assessment Scale: Pain: 2/3 Nausea: 1/3 Lack of Appetite: 1/3 Tiredness: 1/3 Shortness of breath: 1/3 Palliative Performance Scale: 40% Physical Exam Constitutional: healthy appearing, cooperative and comfortable Respiratory: normal respiratory effort and + cough (wet) Auscultation: + rhonchi Cardiovascular: Rate/Rhythm: regular rate and regular rhythm Heart Sounds: normal S1 and normal S2 Extremities: normal capillary refill; no edema Gastrointestinal (Abdomen): Inspection/Auscultation: abdomen normal to inspection Percussion/Palpation: + abdomen tender and + guarding Skin: normal turgor and + pallor Psychiatric: Orientation: alert and oriented x 3 Eye Contact: good eye contact Mood: + anxious mood Insight: good insight Judgement: good judgement Results & Data ([facility]) Vital Signs (Past 12 Hours) Vital Signs Temp Pulse Pulse Pulse Resp BP Pulse Ox 04/19/21 07:43 36.3 C L 66 16 98/57 L 94 04/19/21 07:33 63 04/19/21 03:24 78 18 118/69 96 04/18/21 22:54 36.8 C 72 20 100/65 95 PG Care Time/CCT Total # of Minutes Spent Total Time Spent with Patient: Total time spent is greater than 50% in coordinat ion of care (as documented) at patient's floor/unit and/or counseling patient: 125 minutes with >50% of that time spent assessing the patient, discussing goals of care with the patient, discussing symptom management and ordering appropriate mediations, discussing request for advanced directive with service excellence, and collaborating with IDT Coding Level of Care Code 22689 Initial Inpt Care Lvl 3 Diagnoses Palliative care encounter Z51.5 Shortness of breath R06.02 Nausea R11.0 Situational anxiety F41.8 Primary adenocarcinoma of esophagus with metastasis C15.9 Abdominal pain R10.9 Dysphagia R13.10 Time Spent (min) 125
[2021-04-19] MEDS: ONDANSETRON INJ 2 MG/ML 2 ML VIAL IV SCH ×2 (12:16→17:54)
[2021-04-19] MEDS: MoRPHine SULFATE CR 15 MG TABCR PO SCH (12:16)
[2021-04-19] MEDS ORDERED: POLYETHYLENE (MIRALAX) 17 GM PACK PO PRN (15:18)
[2021-04-19] MEDS ORDERED: POLYETHYLENE (MIRALAX) 17 GM PACK ONE (15:21)
--- NOTE | 2021-04-19 15:28 | Pulmonary Consultation ---
Date of Consultation April 19, 2021 Assessment & Plan (1) Bilateral pulmonary embolism: (2) Primary adenocarcinoma of esophagus with metastasis: (3) Pleural effusion: Impression: 60-year-old male with reported stage IV adenocarcinoma of the esophagus although his outpatient clinical notes were not available to review. He presents with acute PE but is hemodynamically stable with no oxygen requirement. This is likely associated with his malignancy. He also has a pleural effusion, unclear if it is malignant. He was initiated on antibiotics for presumptive pneumonia but his white count is normal and he is afebrile. This appears to be more compressive atelectasis of the lower lobes. There was concern about postobstructive pneumonia however his airways are widely patent on the CT scan and there is no evidence of endobronchial lesion or bronchial compression. Recommendations: 1. Pneumonia: I see no evidence of pneumonia on the patient's exam or clinical evaluation. He is afebrile with a normal white blood cell count. There is no evidence of bronchial obstruction. I do not see an indication for antimicrobial therapy at this point time. 2. Acute PE: Agree with anticoagulation. He is currently on Lovenox. Recommend reaching out to hematology oncology as he has a PE in the setting of hypercoagulable state of malignancy. Options would be to continue with Lovenox or transition to DOAC's. Lifelong anticoagulation likely recommended. He is hemodynamically stable and has no oxygen requirement so I do not think he requires hospitalization from this standpoint. His proBNP and troponin levels were normal. No indication for echocardiogram. 3. Pleural effusion: Recommend requesting records from [facility] to determine whether or not this is a malignant effusion or not. Regardless I would not tap it currently given his need for anticoagulation. We briefly discussed long-term options should the effusion reaccumulate or become increasingly symptomatic to include serial taps versus placement of a Pleurx catheter. I would be happy to see the patient back in the outpatient setting to follow-up on his pleural effusion if needed. 4. Patient is meeting with palliative care. He is DNR/DNI. Recommend engaging outpatient hospice. Recommend continued symptomatic control. From a pulmonary standpoint, I think the patient can likely be dismissed from the hospital with follow-up with his oncologist. Recommend two-step prior to discharge to determine whether or not he needs supplemental oxygen. Again I would be happy to see him in clinic if needed. History of Present Illness Attending Physician: Israel aNyak MD History of Present Illness Asked by hospitalist to evaluate this patient with pulmonary embolism, pleural effusion, shortness of breath, and questionable pneumonia. History is obtained from reviewed electronic medical record as well as discussion with patient at bedside. Patient is a 60-year-old male who was diagnosed with stage III adenocarcinoma of the esophagus back in January. He was seen at [facility] as well as at [facility]. He elected to pursue therapy at [facility]. They recommended neoadjuvant chemo and radiation therapy followed by surgery. He was about three quarters the way through his radiation and completed his first course of chemo when he was hospitalized in [place] with a unrelated diagnosis. Today had a repeat CT scan performed which demonstrated pulmonary nodules. The patient was notified that he appeared to be stage IV although it does not appear biopsy of any of those nodules were undertaken. [facility] notified him that he was no longer a candidate for surgery and did not recommend additional radiation therapy. The [facility] agreed. The patient is currently transitioning his oncologic care to [facility] and has an appointment scheduled to see Dr. Denise. He is not yet seen him. He does state that he underwent what sounds like a thoracentesis at [facility] a few weeks ago with removal of about 650 cc of fluid. He states this was effective in improving some of his symptoms. He is unaware of whether or not the cytology was positive on the sample or not. The patient does not report a prior history of DVTs or PEs. He has a port in place. He presented to the emergency room yesterday with complaints of shortness of breath. He was studied in the emergency room with a CT angiogram showing bilateral PEs. His oxygen saturations were adequate however supplemental oxygen was applied for patient comfort. The patient was treated with full dose Lovenox and admitted to the hospitalist service. There was concern about pneumonia and the patient was placed on Zosyn. Pulmonary was consulted for potential postobstructive pneumonia. Allergies Allergy/AdvReac Type Severity Reaction Status Date / Time No Known Allergies Allergy Unverified 04/18/21 15:01 Home Medications Medication Instructions Recorded Confirmed Type atorvastatin 40 mg tablet (Lipitor) 40 mg PO DAILY 04/18/21 04/18/21 History baclofen 10 mg tablet 10 mg PO DAILY 04/18/21 04/18/21 History levothyroxine 112 mcg tablet 112 mcg PO DAILY 04/18/21 04/18/21 History (Synthroid) lorazepam 0.5 mg tablet 1 mg PO Q8H PRN 04/18/21 04/18/21 History olanzapine 5 mg tablet 5 mg PO HS 04/18/21 04/18/21 History omeprazole 40 mg capsule,delayed 40 mg PO DAILY 04/18/21 04/18/21 History release ondansetron HCl 8 mg tablet 8 mg PO Q8H PRN 04/18/21 04/18/21 History oxycodone 10 mg tablet 10 mg PO Q4H PRN 04/18/21 04/18/21 History prochlorperazine maleate 10 mg 10 mg PO Q6H PRN 04/18/21 04/18/21 History tablet Patient History Medical History (Updated 04/19/21 @ 15:23 by Magan Carrera MD) Abdominal pain Dyslipidemia Dysphagia Hypothyroidism Nausea PORSHA on CPAP Palliative care encounter Primary adenocarcinoma of esophagus with metastasis Shortness of breath Situational anxiety Surgical History H/O inguinal hernia repair History of vasectomy Family History Father Heart disease Brother Heart disease Brother Heart disease Social History Smoking Status: Former smoker Hx Alcohol Use: No Hx Substance Use: No Preferred Language: Slovenian Communication Ability: Effective Ventilator Specialist Required: No Beliefs That Will Affect Care: None marital status: Current Living Situation: Spouse Feels Safe at Home: Yes Safety Concerns: Feels Safe At This Time Assistive Devices: Cane Review of Systems Review of Systems: Please refer to admission H&P. I have no additions or deletions Physical Exam Constitutional: WD/WN, vitals as above Neck: trachea midline, no thyromegaly Respiratory: normal respiratory effort, lungs clear to auscultation Cardiovascular: RRR, no murmur, no edema Gastrointestinal (Abdomen): normal bowel sounds, soft, nontender, no hepatosplenomegaly Musculoskeletal: Extremities: extremities normal to inspection Skin: no rashes, warm and dry Neurologic: Nonfocal exam Lymphatic: no cervical lymphadenopathy Results & Data Results & Data ([facility]) Vital Signs (Past 12 Hours) Vital Signs Temp Pulse Pulse Resp BP Pulse Ox 04/19/21 15:11 36.8 C 77 16 101/61 93 04/19/21 11:10 36.6 C 77 16 102/56 L 93 04/19/21 07:43 36.3 C L 66 16 98/57 L 94 04/19/21 07:33 63 04/19/21 03:24 78 18 118/69 96 Critical Care Results & Data Vital Signs (Past 12 Hours) Vital Signs Temp Pulse Pulse Resp BP Pulse Ox 04/19/21 15:11 36.8 C 77 16 101/61 93 04/19/21 11:10 36.6 C 77 16 102/56 L 93 04/19/21 07:43 36.3 C L 66 16 98/57 L 94 04/19/21 07:33 63 04/19/21 03:24 78 18 118/69 96 Lab & Micro Results (Past 24 Hours) RBC 4.10 M/uL (4.7-6.1) L 04/19/21 WBC 8.46 K/uL (4.8-10.8) 04/19/21 Hgb 11.7 g/dL (14.0-18.0) L 04/19/21 Hct 35.2 % (42-52) L 04/19/21 MCV 85.9 fL (80-100) 04/19/21 MCH 28.5 pg (25-34) 04/19/21 MCHC 33.2 g/dL (32-36) 04/19/21 RDW Standard Deviation 41.5 fL (36.4-46.3) 04/19/21 RDW Coefficient of Variation 13.5 % (11.5-14.5) 04/19/21 Plt Count 131 K/uL (130-400) 04/19/21 MPV 9.9 fL (7.4-10.4) 04/19/21 Na 133 mmol/L (136-145) L 04/19/21 K 4.0 mmol/L (3.5-5.1) 04/19/21 Cl 103 mmol/L (98-107) 04/19/21 CO2 23 mmol/L (21-32) 04/19/21 Anion Gap 8.0 (3-11) 04/19/21 BUN 17 mg/dl (7-18) 04/19/21 Creatinine 0.88 mg/dl (0.6-1.4) 04/19/21 Estimated GFR ( Amer) 109.7 ml/min 04/19/21 Estimated GFR (Non-Af Amer) 94.7 ml/min 04/19/21 BUN/Creatinine Ratio 19.7 (10-20) 04/19/21 Glu 115 mg/dl (70-99) H 04/19/21 Ca 8.0 mg/dl (8.5-10.1) L 04/19/21 Calcium Level 8.0 mg/dl (8.5-10.1) L 04/19/21 07:25 04/19/21 Diagnostic Findings (Past 24 Hours) Chest CTA 04/18/21 13:25 CT ANGIOGRAPHY OF THE CHEST, PULMONARY EMBOLUS PROTOCOL CLINICAL HISTORY: Dyspnea, h/o esophageal CA, recent thoracentesis COMPARISON STUDY: Chest radiograph performed earlier today. TECHNIQUE: Following IV administration of 112 mL of Optiray, helical axial images of the chest were obtained utilizing the pulmonary embolus protocol. Maximal intensity projections and sagittal and coronal reformats were viewed on an independent 3D workstation. IV contrast was administered without complicati on. Automated exposure control was utilized for the study. A dose lowering technique was utilized adhering to the principles of ALARA. CT DOSE: 421.02 mGy.cm FINDINGS: Right subclavian [id number] is in place. Extensive right-sided pulmonary emboli are present. These include emboli within the distal right pulmonary artery. Several small left-sided pulmonary emboli are present. There is no definite CT evidence for right heart strain. No pericardial effusion is present. A small left pleural effusion is noted. There is no pneumothorax. Extensive left lower lobe airspace opacity is present. Foci of diminished parenchymal enhancement within the consolidated left lower lobe are noted. Innumerable pulmonary nodules are noted. Index right upper lobe nodule on image 199 measures 1.3 cm. Many of these nodules have irregular margins. Central airways are patent. Note is made of masslike thickening at the gastroesophageal junction. There is no pericardial effusion. There are multiple hypodense hepatic lesions which measure up to 2.5 cm. There is an indeterminate 1.5 cm nodule along the anterior aspect of the spleen. No suspicious lesions are identified within visualized skeletal structures. IMPRESSION: 1. Extensive right-sided pulmonary emboli and several small left-sided pulmonary emboli. 2. Pulmonary and hepatic metastases, as described above. 3. Mass-like thickening at the gastroesophageal junction which could reflect the primary tumor. 4. Small left pleural effusion. Extensive left lower lobe and lingular opacity. This could reflect pneumonia or atelectasis. Underlying infarct within left lower lobe cannot be excluded. ACT 112: Negative or not required by law. Electronically signed by: Tavo Pham M.D. 04/18/2021 3:57 PM I & O Totals 24 Hours 04/18/21 04/19/21 04/20/21 06:59 06:59 06:59 Intake Total 1861.667 / 3746.292 9319 / 1115 Balance 1861.667 / 7073.371 6093 / 1115 Cumulative 04/18/21 12:59 thru 04/19/21 14:03 Intake Total 2976.667 Balance 2976.667 RT Ventilator Mngmt (Last Documented) Ventilator Ordered Settings Respiratory Rate 16 04/19/21 15:11 Ventilator - PT Measurements Respiratory Rate 16 PG Care Time/CCT Total # of Minutes Spent Total Time Spent with Patient: Total time spent is greater than 50% in coordination of care (as documented) at patient's floor/unit and/or counseling patient: Coding Level of Care Code 14043 Inpt Consult Level 4 Diagnoses Bilateral pulmonary embolism I26.99 Primary adenocarcinoma of esophagus with metastasis C15.9 Pleural effusion J90
[2021-04-19] MEDS: LORazepam 1 MG TAB PO SCH (16:45)
--- NOTE | 2021-04-19 16:58 | Electrocardiogram Report ---
Test Reason : Blood Pressure : / mmHG Vent. Rate : 103 BPM Atrial Rate : 103 BPM P-R Int : 124 ms QRS Dur : 084 ms QT Int : 376 ms P-R-T Axes : 055 040 015 degrees QTc Int : 492 ms Sinus tachycardia Otherwise normal ECG No previous ECGs available Confirmed by Graham Smith ([id number]) on 04/19/2021 4:57:52 PM Referred By: Confirmed By:Graham Smith
--- NOTE | 2021-04-19 17:18 | Hospitalist Progress Note ---
Date of Service April 19, 2021 Assessment & Plan (1) Bilateral pulmonary embolism: Plan: per EUGENE Roland's notes: -patient presenting from home with reports of shortness of breath that began suddenly this morning -CTA chest showing BL pulmonary embolism, patient saturating greater than 90% on room air, placed on 2 L for comfort. -Given underlying cancer diagnosis, start Lovenox 1 mg/kg every 12 hours -CT chest also questioning left lower lobe infiltrate, start IV Zosyn 04/19 doing better wean off oxygen on Lovenox BID will discuss with Oncologist re: possible transition to NOAC appreciate Dr. Carrera's recommendations (2) Primary adenocarcinoma of esophagus with metastasis: Plan: per EUGENE Roland's notes: -With metastatic abdominal lymphadenopathy, liver and lung -Has been receiving care at [facility], s/p FOLFOX on 03/30, also completed 12 radiation treatments -s\P thoracentesis on 04/14 -to establish care locally with Dr. Anderson -Patient and requesting palliative evaluation -full liquid diet as tolerated 04/19 Palliative Care service consulted- appreciate the recommendations MS [place], Ativan TID ordered Full liquid diet, can have crackers (3) Hypothyroidism: Plan: -continue levothyroxine (4) DVT prophylaxis: Plan: -on full dose Lovenox as above plan of care discussed with patient in detail and at length all questions answered he is understanding, agreeable, comfortable with the plan of care Admission and Anticipated Discharge Date Admission Date: April 18, 2021 Subjective ff up for BL PE, etc seen resting in bed, in good spirits states he feels fine better today overall no chest pain, able to have deeper breaths no fever/chills minimal cough, able to expectorate more no abdominal pain, nausea/vomiting no other symptoms Review of Systems Review of Systems: all noted and negative except for above Physical Exam Physical Exam: General- oriented x 3, not in distress, speaks in sentences with no effort or accessory muscle use Eyes- anicteric Neck- no JVD Lungs- clear breath sounds bilaterally, no rales/wheezes Heart- normal rate, regular rhythm; no murmurs Abdomen- normal bowel sounds, nondistended, soft, nontender Extremities- no pretibial edema, no calf tenderness Neuro- alert, oriented x 3; no gross focal neurologic deficits Skin- warm & dry Results & Data Results & Data ([facility]) Vital Signs (Past 12 Hours) Vital Signs Temp Pulse Pulse Resp BP Pulse Ox 04/19/21 15:11 36.8 C 77 16 101/61 93 04/19/21 14:19 79 04/19/21 11:10 36.6 C 77 16 102/56 L 93 04/19/21 07:43 36.3 C L 66 16 98/57 L 94 04/19/21 07:33 63 all noted and reviewed including below
[2021-04-19] MEDS ORDERED: Nursing to Pharmacy Communication SCH (17:45)
[2021-04-19] MEDS ORDERED: [UNRECOGNIZED DRUG - REMARK] PO PRN (18:25)
[2021-04-19] MEDS: OLANZapine 5 MG TABLET PO SCH (20:25)
[2021-04-20] MEDS: LORazepam 1 MG TAB PO SCH ×2 (00:52→08:11)
[2021-04-20] MEDS: MoRPHine SULFATE CR 15 MG TABCR PO SCH ×2 (00:52→12:18)
[2021-04-20] MEDS: ONDANSETRON INJ 2 MG/ML 2 ML VIAL IV SCH ×3 (00:53→12:18)
[2021-04-20] MEDS ORDERED: HEPARIN 100 UNIT/ML 5ML FLUSH FLUSH PRN (02:05)
[2021-04-20] MEDS: ENOXAPARIN 80 MG/0.8 ML SYR SQ SCH (05:49)
[2021-04-20] MEDS: SODIUM CHLORIDE 0.9% 1000ML 1,000 ML IV SCH (05:50)
[2021-04-20] MEDS: LEVOTHYROXINE SODIUM 112 MCG TABLET PO SCH (05:50)
[2021-04-20] MEDS: oxyCODONE HCL IR 5 MG TAB (IMMEDIATE RELEASE) PO PRN (08:11)
[2021-04-20] MEDS: ATORVASTATIN 40 MG TAB PO SCH (08:12)
[2021-04-20] MEDS: BACLOFEN 10 MG TAB PO SCH (08:12)
[2021-04-20] MEDS: PANTOprazole 40 MG TAB PO SCH (08:12)
[2021-04-20] MEDS: guaiFENesin 600 MG TABCR PO SCH (08:12)
--- NOTE | 2021-04-20 09:00 | Pulmonology Progress Note ---
Date of Service April 20, 2021 Assessment & Plan (1) Bilateral pulmonary embolism: (2) Primary adenocarcinoma of esophagus with metastasis: (3) Pleural effusion: Plan: Impression: 60-year-old male with reported stage IV adenocarcinoma of the esophagus although his outpatient clinical notes were not available to review. He presents with acute PE but is hemodynamically stable with no oxygen requirement. This is likely associated with his malignancy. He is experiencing increasing chest discomfort on the left today which may be related to reaccumulation of the pleural fluid. Recommendations: 1. Off all antibiotics 2. Acute PE: Agree with anticoagulation. He is currently on Lovenox. Recommend reaching out to hematology oncology as he has a PE in the setting of hypercoagulable state of malignancy. Options would be to continue with Lovenox or transition to DOAC's. Lifelong anticoagulation likely recommended. He is hemodynamically stable and has no oxygen requirement so I do not think he requires hospitalization from this standpoint. His proBNP and troponin levels were normal. No indication for echocardiogram. 3. Pleural effusion: Unclear if the patient's chest pain complaint today is related to the pleural effusion. We will repeat the chest x-ray. I discussed options with the patient to include repeating his thoracentesis versus placement of an indwelling pleural catheter. We do not know if the fluid is malignant. He did receive his Lovenox injection at 6:00 this morning so the soonest we would be able to intervene would be tomorrow. I will repeat his chest x-ray today to see if the effusion is reaccumulating. Depending on that result if the patient wishes to remain in the hospital, we could consider thoracentesis angie rrow holding his Lovenox. I did also advise the patient that this can be conducted as an outpatient if he wishes to go home. 4. Patient is meeting with palliative care. He is DNR/DNI. Recommend engaging outpatient hospice. Recommend continued symptomatic control. Patient does not require additional inpatient evaluation from a pulmonary standpoint. Disposition per primary service Admission and Anticipated Discharge Date Admission Date: April 18, 2021 Subjective Patient seen and examined. EMR reviewed. He states he slept reasonably well overnight. His breathing is okay but he does feel an increase in some chest discomfort on the left side of his chest similar to when his pleural effusion recurred. Has not had any fevers chills or night sweats. He is tolerating a diet. He is off oxygen Review of Systems Review of Systems: All systems reviewed & are unremarkable except as noted in Subjective Physical Exam Constitutional: WD/WN, vitals as above Neck: trachea midline, no thyromegaly Respiratory: normal respiratory effort; no respiratory distress and no labored breathing Decreased breath sounds with dullness to percussion at the left lung base Cardiovascular: RRR, no murmur, no edema Gastrointestinal (Abdomen): normal bowel sounds, soft, nontender, no hepatosplenomegaly Musculoskeletal: Extremities: extremities normal to inspection Skin: no rashes, warm and dry Lymphatic: no cervical lymphadenopathy Results & Data Results & Data ([facility]) Vital Signs (Past 12 Hours) Vital Signs Temp Pulse Pulse Resp BP BP Pulse Ox 04/20/21 08:00 36.4 C L 76 18 113/70 91 04/20/21 04:00 36.5 C 77 18 101/62 94 04/20/21 01:15 71 04/19/21 23:45 36.6 C 69 18 103/62 94 Laboratory Results 04/19/21 07:25 04/19/21 07:25 PG Care Time/CCT Total # of Minutes Spent Total Time Spent with Patient: Total time spent is greater than 50% in coordination of care (as documented) at patient's floor/unit and/or counseling patient: Coding Level of Care Code 22867 Subseq Hosp Care Lvl 3 Diagnoses Bilateral pulmonary embolism I26.99 Primary adenocarcinoma of esophagus with metastasis C15.9 Pleural effusion J90
--- NOTE | 2021-04-20 09:31 | XRay Report ---
XR chest 1V portable CLINICAL HISTORY: Chest pain. Esophageal cancer. COMPARISON STUDY: Chest radiograph and chest CT April 18, 2021. FINDINGS: Right internal jugular [id number] is in place. There is no pneumothorax. Reticulonodular interstitial thickening is noted. This corresponds to numerous pulmonary nodules better depicted on chest CT. A small left pleural effusion is noted with left basilar opacity. Basilar opacity has incre ased. Cardiomediastinal silhouette is stable. IMPRESSION: 1. Persistent small left pleural effusion. Interval increase in left basilar opacity. 2. Reticulonodular interstitial thickening which corresponds to numerous pulmonary nodules better dep icted on chest CT. ACT 112: Negative or not required by law. Electronically signed by: Tavo Pham M.D. 04/20/2021 9:29 AM
--- NOTE | 2021-04-20 10:42 | CT Scan Report ---
CT head/brain wo con CLINICAL HISTORY: esophageal cancer r/o mets Technique: Contiguous axial CT images of the head were acquired from the base of the skull to the kj popeye without intravenous contrast administration. Images were viewed in brain, subdural and bone windo ws. Automated dose lowering techniques and/or adjustment according to patient size were utilized for this exam. Comparison: None available at the time of this dictation. Findings: The ventricles, basal cisterns, and cerebral sulci are normal. There is no acute intracranial hemorrh age or evidence of acute territorial infarction. Neither mass effect, shift of the midline structures , nor abnormal extra-axial fluid collections are shown. Imaged portions of the paranasal sinuses and mastoid air cells are clear. The orbits appear normal. There are no acute fractures of the calvaria or scalp swelling. Impression: No acute intracranial hemorrhage, evidence of acute territorial infarction, or other acute intracrani al disease process. ACT 112: Negative or not required by law. Electronically signed by: Heron Dominguez M.D. 04/20/2021 10:41 AM
--- NOTE | 2021-04-20 12:15 | Palliative Care Progress Note ---
Date of Service April 20, 2021 Assessment & Plan (1) Palliative care encounter: Plan: I visited Mr. Soriano and he was less tearful than yesterday's encounter. He discussed his visit with the pulmonary physician and indicated that he is awaiting his CXR results. As previously mentioned,patient has a follow up with Dr. Anderson on 04/28 to discuss overall prognosis. Please see below for symptom management. The above was discussed in detail with the hospitalist and case management. [facility] team known to follow up outpatient palliative care. Thanks for involving Palliative Medicine with this unfortunate, yet delightful, individual. (2) Abdominal pain: Plan: Pt describes pretty constant left lower abdominal pain with radiation to the right lower abdomen, up through his anterior chest, and further radiating into his right scapular and neck region. At rest, he notes this pain to be 4/10, but overall feels about the same as yesterday. He was able to tolerate the MS Contin 15 mg PO BID with the pill cut in half. The patient currently has Roxicodone 10mg Q4 PRN (only has used one dose in 24 hours) If patient has difficulty with swallowing, will consider other options. Continue Baclofen 10 mg daily. (3) Shortness of breath: Plan: Pt currently on 2LNC and is being treated for pneumonia as well, on abx. Patient had a thoracentesis on 04/14 with 650mL removed. We discussed this and he asked if he would have to have another one performed at some point. I explained that since it was the first time he had fluid removed, we have to wait and see how quickly does the fluid reaccumulate, which can help from a prognosis standpoint. Awaiting CXR results. Pulmonary has been following. (4) Nausea: Plan: Tolerating scheduled Zofran 4 mg IV Q6. Would recommended continued scheduled dosing, will need to transition to PO when discharged. (5) Situational anxiety: Plan: Pt with situational anxiety. He is very tearful throughout the encounter, I encouraged continued emotion presence as it is important to process his emotions in a positive manner. Pt tolerating Ativan 1 mg Q8. Continue Zyprexa 5 mg QHS for nausea. (6) Primary adenocarcinoma of esophagus with metastasis: Plan: Recently [facility] progressed his cancer from stage III to stage IV and advised that his case is now confirmed terminal. Would be helpful for the patient and his to have a call with [facility] provider for actual prognosis life expectancy timeframe. We did discuss the term 'terminal' likely being 6 months; however, suggest they confirm with the oncologist. (7) Dysphagia: Plan: Sometimes it feels like he has a lump in his throat, but he is still able to swallow most of his medications. He is able to tolerate liquids, cream of wheat, applesauce, and oatmeal. He would love to eat a cheeseburger, but can't. Admission and Anticipated Discharge Date Admission Date: April 18, 2021 Subjective Patient seen in his bed. He is less tearful today compared to yesterday. Pt stating he has pain in left side of chest where previous thoracentesis took place. CXR pending for pleural effusion evaluation. Pulmonary saw patient today regarding repeat thoracentesis and possible pleur-x drain placement. See A/P for further details. Review of Systems Review of Systems: Council System Assessment Scale: Pain: 2/3 Nausea: 1/3 Lack of Appetite: 1/3 Tiredness: 1/3 Shortness of breath: 1/3 Palliative Performance Scale: 40% Physical Exam Constitutional: healthy appearing, cooperative and comfortable Respiratory: normal respiratory effort and + cough (wet) Auscultation: + rhonchi Cardiovascular: Rate/Rhythm: regular rate and regular rhythm Heart Sounds: normal S1 and normal S2 Extremities: normal capillary refill; no edema Gastrointestinal (Abdomen): Inspection/Auscultation: abdomen normal to inspection Percussion/Palpation: + abdomen tender and + guarding Skin: normal turgor and + pallor Psychiatric: Orientation: alert and oriented x 3 Eye Contact: good eye contact Mood: + anxious mood Insight: good insight Judgement: good judgement Results & Data ([facility]) Vital Signs (Past 12 Hours) Vital Signs Temp Pulse Pulse Resp BP BP Pulse Ox 04/20/21 08:00 36.4 C L 76 18 113/70 91 04/20/21 04:00 36.5 C 77 18 101/62 94 04/20/21 01:15 71 PG Care Time/CCT Total # of Minutes Spent Total Time Spent with Patient: Total time spent is greater than 50% in coordination of care (as documented) at patient's floor/unit and/or counseling patient: 35 minutes with > 50% Of that time spent assessing the patient, discussing goals of care, addressing symptom management and collaborating with IDT Coding Level of Care Code 93281 Subseq Hosp Care Lvl 3 Diagnoses Palliative care encounter Z51.5 Abdominal pain R10.9 Shortness of breath R06.02 Nausea R11.0 Situational anxiety F41.8 Primary adenocarcinoma of esophagus with metastasis C15.9 Dysphagia R13.10 Time Spent (min) 35
--- NOTE | 2021-04-20 20:07 | Hospitalist Progress Note ---
Date of Service April 20, 2021 delayed entry date of service noted above Assessment & Plan (1) Bilateral pulmonary embolism: Plan: per EUGENE Roland's notes: -patient presenting from home with reports of shortness of breath that began suddenly this morning -CTA chest showing BL pulmonary embolism, patient saturating greater than 90% on room air, placed on 2 L for comfort. -Given underlying cancer diagnosis, start Lovenox 1 mg/kg every 12 hours -CT chest also questioning left lower lobe infiltrate,small pleural effusion, start IV Zosyn doing better, chest pain and dyspnea resolved weaned off oxygen on Lovenox BID discussed with Oncologist Dr. Anderson--> recommend Eliquis BID Pulm Consulted- Dr Carrera recommend outpatient thoracentesis for small-moderate left pleural effusion clinic to contact him in 1 week (2) Primary adenocarcinoma of esophagus with metastasis: Plan: per EUGENE Roland's notes: -With metastatic abdominal lymphadenopathy, liver and lung -Has been receiving care at [place], s/p FOLFOX on 03/30, also completed 12 radiation treatments -s\P thoracentesis on 04/14 -to establish care locally with Dr. Anderson -Patient and requesting palliative evaluation -full liquid diet as tolerated Palliative Care service consulted- appreciate the recommendations MS [place], Ativan TID ordered Patient to follow up with [facility] in [place] ff up with Dr. Anderson in 1 week Full liquid diet, can have crackers (3) Hypothyroidism: Plan: -continue levothyroxine (4) DVT prophylaxis: Plan: Eliquis plan of care discussed with patient in detail and at length all questions answered he is understanding, agreeable, comfortable with the plan of care Admission and Anticipated Discharge Date Admission Date: April 18, 2021 Subjective ff up for BL PE, etc seen resting in bed, comfortable in good spirits states he feels better overall no chest pain, dyspnea ambulated in the halls with no problems no fever/chills, unusual cough, palpitations no other symptom states he is ready and would like to be discharged home Review of Systems Review of Systems: .ros Physical Exam Physical Exam: General- oriented x 3, not in distress, speaks in sentences with no effort or accessory muscle use Eyes- anicteric Neck- no JVD Lungs- clear on the right mild decrease in BS left base no wheezing Heart- normal rate, regular rhythm; no murmurs Abdomen- normal bowel sounds, nondistended, soft, nontender Extremities- no pretibial edema, no calf tenderness Neuro- alert, oriented x 3; no gross focal neurologic deficits Skin- warm & dry Results & Data Results & Data ([facility]) Vital Signs (Past 12 Hours) Vital Signs Temp Pulse Pulse Pulse Pulse Pulse Resp 04/20/21 15:30 92 H 90 88 04/20/21 15:07 36.4 C L 72 76 18 Resp Resp Resp BP BP Pulse Ox Pulse Ox 04/20/21 15:30 20 22 20 91 04/20/21 15:07 113/70 101/62 91 Pulse Ox Pulse Ox 04/20/21 15:30 90 92 04/20/21 15:07 all noted and reviewed including below
[2021-04-20] MEDS ORDERED: APIXABAN 5 MG TABLET PO SCH (21:00)
--- NOTE | 2021-04-21 16:57 | Discharge Summary ---
Date of Service April 21, 2021 Admission HPI Per Admitting Provider 60 year old male with PMH hypothyroidism, PORSHA, metastatic adenocarcinoma of esophagus, and other problems listed below who presents to the ED with reports of shortness of breath. Patient received cancer diagnosis 01/2021 and has been receiving care at [facility], recently transferring care locally. While at [place], patent received one dose of chemo (FOLFOX) on 03/30, unfortunately due to ongoing nausea, patient has had no further treatments. He also completed 12 radiation treatments. On 04/14 patient underwent thoracentesis. During the 3 weeks the patient was receiving care at [place], he was receiving IVF daily as an outpatient due to poor PO intake. Patient reports waking up this morning with severe shortness of breath. He also reports a cough productive for yellow sputum. No fevers or chills. Reports chronic left sided chest/back/rib pain since cancer diagnosis. Appetite remains poor and patient continues to struggle with dysphagia. No abdominal pain. Has intermitter nausea and vomiting. No diarrhea. Denies hematemsis and coffee ground emesis. No lightheadedness, dizziness, diaphoresis, and syncope. Denies urinary symptoms. In the ED, CTA chest shows BL PE. Patient is saturating > 90% on room air but was placed on 2L for comfort. Labs unremarkable. Patient was given full dose Lovenox. Admission Exam (Per Admitting) Constitutional Constitutional: WD/WN, vitals as above Eyes: PERRL, conjunctivae normal, anicteric sclerae ENMT: external ear and nose normal, oropharynx normal Respiratory: normal respiratory effort; no respiratory distress Auscultation: + diminished lung sounds Cardiovascular: Rate/Rhythm: regular rate and regular rhythm Vessels: normal peripheral pulses Extremities: no edema Gastrointestinal (Abdomen): normal bowel sounds, soft, nontender, no hepatosplenomegaly Musculoskeletal: no cyanosis or clubbing, extremities motor strength 5/5 Skin: no rashes, warm and dry Neurologic: PERRL, EOMI, accommodation nl, no face palsy, no dysarthria Psychiatric: A+Ox3, euthymic affect Affect: + tearful affect (at times) Discharge Data Consultations 04/18/21 16:55 ED Decision to Admit Stat 04/18/21 17:21 Consult Palliative Care Routine 04/19/21 14:47 Consult Pulmonology Routine Hospital Course (1) Bilateral pulmonary embolism: per EUGENE Roland's notes: -patient presenting from home with reports of shortness of breath that began suddenly this morning -CTA chest showing BL pulmonary embolism, patient saturating greater than 90% on room air, placed on 2 L for comfort. -Given underlying cancer diagnosis, start Lovenox 1 mg/kg every 12 hours -CT chest also questioning left lower lobe infiltrate,small pleural effusion, start IV Zosyn doing better, chest pain and dyspnea resolved weaned off oxygen on Lovenox BID discussed with Oncologist Dr. Anderson--> recommend Eliquis BID Pulm Consulted- Dr Carrera recommend outpatient thoracentesis for small-moderate left pleural effusion clinic to contact him in 1 week (2) Primary adenocarcinoma of esophagus with metastasis: per EUGENE Roland's notes: -With metastatic abdominal lymphadenopathy, liver and lung -Has been receiving care at [place], s/p FOLFOX on 03/30, also completed 12 radiation treatments -s\P thoracentesis on 04/14 -to establish care locally with Dr. Anderson -Patient and requesting palliative evaluation -full liquid diet as tolerated Palliative Care service consulted- appreciate the recommendations MS [place], Ativan TID ordered Patient to follow up with [facility] in [place] ff up with Dr. Anderson in 1 week Full liquid diet, can have crackers (3) Hypothyroidism: -continue levothyroxine (4) DVT prophylaxis: Eliquis plan of care discussed with patient in detail and at length all questions answered he is understanding, agreeable, comfortable with the plan of care
--- NOTE | 2021-04-28 13:35 | Coding Query ---
CODING QUERY To promote full compliance with coding requirements relating to patient care, provider participation is requested in all cases of registered public surveyor uncertainty. Please assist us with the question(s) below: Coding Question(s): Pulmonary Embolism is documented throughout the record and the Pulmonary Consultation and Pulmonary Progress Note document, "Acute PE: Agree with anticoagulation. He is currently on Lovenox. Recommend reaching out to hematology oncology as he has a PE in the setting of hypercoagulable state of malignancy. Options would be to continue with Lovenox or transition to DOAC's. Lifelong anticoagulation likely recommended", and the Discharge Summary documents, under Bilateral Pulmonary Embolism, "Given underlying cancer diagnosis, start Lovenox 1 mg/kg every 12 hours". Please specify below, in your clinical opinion. ( x) Bilateral Pulmonary Embolism is most likely due to Hypercoagulable State of malignancy ( ) Bilateral Pulmonary Embolism is NOT likely due to Hypercoagulable State of malignancy ( ) Bilateral Pulmonary Embolism, Other: Please Specify Physician's Response(s): Thank you Luli Herrera Principal Diagnosis: "that condition established after study, to be chiefly responsible for occasioning the admission of the patient to the hospital for care." Co-Existing Principal Diagnosis: "when two or more diagnoses equally meet the criteria for principal diagnosis as determined by the circumstances of admission, diagnostic work up, and/or therapy provided, and the Alphabetic Index, Tabular List, or another coding guideline does not provide sequencing direction, any one of the diagnoses may be sequenced first." "When the physician has documented what appears to be a current diagnosis in the body of the record, but has not included the diagnosis in the final diagnostic statement, the physician should be asked whether the diagnosis should be added." (Source Coding Clinic 2 QTR90. p3-4) YAO
--- NOTE | 2021-04-28 13:42 | Coding Query ---
CODING QUERY To promote full compliance with coding requirements relating to patient care, provider participation is requested in all cases of land measurer uncertainty. Please assist us with the question(s) below: Coding Question(s): Possible Pneumonia is documented in the record beginning on the H&P with, "POSSIBLE L LUNG PNEUMONIA Zosyn IV" and the Palliative Consultation, however, the Pulmonary Consultation documents, "Pneumonia: I see no evidence of pneumonia on the patient's exam or clinical evaluation. He is afebrile with a normal white blood cell count. There is no evidence of bronchial obstruction. I do not see an indication for antimicrobial therapy at this point time", and then the Progress Notes starting on 04/19 through Discharge Summary do not document Pneumonia. It is not clear if the Pneumonia was ruled-out or still possible. Please specify below, in your clinical opinion. (x) Pneumonia was Ruled-Out ( ) Pneumonia was still Possible ( ) Other: Please Specify Physician's Response(s): Thank you Luli Herrera Principal Diagnosis: "that condition established after study, to be chiefly responsible for occasioning the admission of the patient to the hospital for care." Co-Existing Principal Diagnosis: "when two or more diagnoses equally meet the criteria for principal diagnosis as determined by the circumstances of admission, diagnostic work up, and/or therapy provided, and the Alphabetic Index, Tabular List, or another coding guideline does not provide sequencing direction, any one of the diagnoses may be sequenced first." "When the physician has documented what appears to be a current diagnosis in the body of the record, but has not included the diagnosis in the final diagnostic statement, the physician should be asked whether the diagnosis should be added." (Source [facility] 2 QTR90. p3-4) YAO
== END 2021-04-20 17:10 | disposition home or self-care (01) | DRG 814 ==
LOC: ED 13:11 → 2N 16:41

== ENCOUNTER 2021-04-24 13:34 | Inpatient (IN) ==
[2021-04-24] MEDS ORDERED: MoRPHine SULFATE 4 MG/ML 1 ML CARP\\VIAL IV PRN (14:02)
[2021-04-24] MEDS ORDERED: ONDANSETRON INJ 2 MG/ML 2 ML VIAL IV STA (14:02)
[2021-04-24] MEDS ORDERED: SODIUM CHLORIDE 0.9% 500 ML IV STA (14:02)
--- NOTE | 2021-04-24 14:16 | Emergency Department Note ---
Impression & Plan Bilateral pulmonary embolism, Pleural effusion, Chest pain ED Provider Note NAME: RUEL TURCIOS AGE: 60 SEX: M : 1960 ARRIVES VIA: Ambulance INFORMANT: Patient, ED PROVIDER(S): Jevon Garcia DO CHIEF COMPLAINT: Shortness of breath HPI: The patient is a 60-year-old male who has a history of recently diagnosed esophageal cancer. The patient was followed here as well as at [facility]. The patient was going to have a procedure for esophagectomy. When he went to [facility] his staging changed and went from a stage III to stage IV. He was no longer a candidate for this procedure. He was following in our area with the [facility] oncology group. He was seen here recently for similar complaints at that time he had a thoracentesis. He is scheduled for another thoracentesis on Monday. The patient presented to the emergency department today because of chest pain and difficulty breathing. He describes difficulty breathing especially with lying flat. He also describes significant left-sided abdominal pain. He denies having any nausea or vomiting. He has been taking his outpatient pain medication with only minimal relief. He arrived via ambulance. The patient has been compliant with all of his medications including his Eliquis. He states the pain is moderate and worsened with movement as well as deep breathing. The patient denies having any lower extremity swelling. He has had no fever. He does complain of a slight cough. ROS: See above HPI for pertinent positives & negatives. A total of 10 systems reviewed and were otherwise negative. PAST MEDICAL HISTORY: See Below PAST SURGICAL HISTORY: See Below FAMILY HISTORY: See Below SOCIAL HISTORY: See Below HOME MEDICATIONS: See Below ALLERGIES: See Below VITALS: See Below PHYSICAL EXAMINATION: GENERAL: The patient is awake and alert. He is somewhat anxious appearing. He appears to be uncomfortable. EYES: The conjunctivae are clear. The pupils are round and reactive. EARS, NOSE, MOUTH AND THROAT: The nose is without any evidence of any deformity. Plate NECK: The neck is nontender and supple. RESPIRATORY: Splinting respirations were noted. Diminished breath sounds are noted at the left base. CARDIOVASCULAR: Regular rate and rhythm noted there no murmurs rubs or gallops normal S1 normal S2. GASTROINTESTINAL: The abdomen is soft and mildly distended. There is significant left-sided tenderness to palpation. There is no guarding or rigidity. MUSCULOSKELETAL/EXTREMITIES: There is no evidence of gross deformity full range of motion is noted in the hips and shoulders. SKIN: There is no obvious evidence of any rash. There are no petechiae, pallor or cyanosis noted. NEUROLOGIC: Patient is awake alert and oriented x3. MEDICAL DECISION MAKING: The patient is a 60-year-old male who presented to the emergency department for an evaluation of chest pain and difficulty breathing. The patient was recently diagnosed with bilateral pulmonary embolism. He is taking blood thinners. He was found to have areas of possible pulmonary infarct on CT of the chest today but also a large pleural effusion. He had thoracentesis of the pleural effusion in the past. He presented to the emergency department today for possible thoracentesis. I discussed the patient's laboratory and radiographic studies with him. I discussed his case with the patient's primary foundry molder. Since he does take blood thinners we will hold the blood thinners overnight and the patient can have thoracentesis tomorrow. This will be the plan as per pulmonary. I also discussed his case with the [facility] hospitalist group. They will evaluate the patient in the emergency department for further management and disposition. Triage Nursing notes reviewed. Prior medical records reviewed Vital Signs: reviewed and remarkable for no significant abnormalities Differential diagnosis: Cardiac ischemia, aortic dissection, pulmonary embolism, pneumothorax, pneumonia, pericarditis, myocarditis, esophageal rupture, GERD, cholecystitis, pancreatitis, musculoskeletal, as well as other pathologies. ER treatment provided: See below Diagnostics interpreted by me: ECG: EKG was obtained in the emergency department. My interpretation is normal sinus rhythm 91 bpm. There is no ectopy. Inferior T wave versions were noted. This was compared to a tracing from April 18, 2021. No changes were noted. Cardiac Monitoring: An order was placed for continuous cardiac monitoring. The monitor shows a rate of 93 bpm with sinus rhythm. Laboratory studies: As stated above and show below. Imaging studies: See below Consultation(s): I discussed this case with Dr. Carrera who is the patient's primary pulmonary doctor. I discussed this case with Danay who is on-call for the [facility] group. Past Med/Surg History Medical History Abdominal pain Dyslipidemia Dysphagia Hypothyroidism Nausea PORSHA on CPAP Palliative care encounter Primary adenocarcinoma of esophagus with metastasis Shortness of breath Situational anxiety Surgical History H/O inguinal hernia repair History of vasectomy Family History Father Heart disease Brother Heart disease Brother Heart disease Social History Smoking Status: Never smoker Hx Alcohol Use: No Hx Substance Use: No Preferred Language: Maltese Communication Ability: Effective Inspector Assembly Required: No Beliefs That Will Affect Care: None marital status: Current Living Situation: Spouse Feels Safe at Home: Yes Assistive Devices: Cane Allergies Allergies Allergy/AdvReac Type Severity Reaction Status Date / Time No Known Allergies Allergy Unverified 04/24/21 15:54 Home Meds Home Medications Medication Instructions Recorded Confirmed atorvastatin 40 mg tablet (Lipitor) 40 mg PO DAILY 04/18/21 04/24/21 baclofen 10 mg tablet 10 mg PO DAILY 04/18/21 04/24/21 levothyroxine 112 mcg tablet 112 mcg PO DAILY 04/18/21 04/24/21 (Synthroid) lorazepam 0.5 mg tablet 1 mg PO Q8H PRN 04/18/21 04/24/21 olanzapine 5 mg tablet 5 mg PO HS 04/18/21 04/24/21 omeprazole 40 mg capsule,delayed 40 mg PO DAILY 04/18/21 04/24/21 release ondansetron HCl 8 mg tablet 8 mg PO Q8H PRN 04/18/21 04/24/21 oxycodone 10 mg tablet 10 mg PO Q4H PRN 04/18/21 04/24/21 prochlorperazine maleate 10 mg 10 mg PO Q6H PRN 04/18/21 04/24/21 tablet bisacodyl 5 mg tablet,delayed 10 mg PO DAILY 04/24/21 04/24/21 release (Dulcolax (bisacodyl)) sennosides 8.6 mg-docusate sodium 1 tab PO DAILY 04/24/21 04/24/21 50 mg tablet (Senokot-S) Previous Rx's Medication Instructions Recorded apixaban 5 mg tablet (Eliquis) 5 mg PO BID #74 tab 04/20/21 guaifenesin 600 mg tablet, 600 mg PO Q12 7 Days #14 tab 04/20/21 extended release 12 hr (Mucinex) morphine 15 mg tablet,extended 15 mg PO Q12H #30 tab 04/20/21 release Results & Data (ED) Vital Signs Vital Signs - 24 hr 04/24/21 13:24 04/24/21 14:00 04/24/21 14:30 Temperature 36.6 C Temperature Source Oral Pulse Rate 92 H 95 H 87 Pulse Rate from SpO2 Sensor 95 H 87 Respiratory Rate 24 21 19 Respiratory Effort / Characteristics Short of Breath Blood Pressure 113/72 107/65 110/68 Blood Pressure Mean 85 79 82 Blood Pressure Position Lying Pulse Oximetry 97 96 97 Oxygen Delivery Method Nasal Cannula Oxygen Flow Rate 4 Sepsis Recent Fever Within 48 Hours No Sepsis New/Unexplained Change in Mental Status No Sepsis Action Taken by Nursing No Action Required 04/24/21 14:39 04/24/21 15:00 04/24/21 16:00 Temperature Temperature Source Pulse Rate 86 89 Pulse Rate from SpO2 Sensor 86 89 Respiratory Rate 20 24 Respiratory Effort / Characteristics Blood Pressure 108/61 114/65 Blood Pressure Mean 76 81 Blood Pressure Position Pulse Oximetry 97 96 96 Oxygen Delivery Method Room Air Oxygen Flow Rate Sepsis Recent Fever Within 48 Hours Sepsis New/Unexplained Change in Mental Status Sepsis Action Taken by Nursing 04/24/21 17:00 04/24/21 17:30 04/24/21 18:00 Temperature Temperature Source Pulse Rate 90 97 H 90 Pulse Rate from SpO2 Sensor 80 98 H 89 Respiratory Rate 22 32 H 18 Respiratory Effort / Characteristics Blood Pressure 104/62 115/76 122/69 Blood Pressure Mean 76 89 86 Blood Pressure Position Pulse Oximetry 96 96 94 Oxygen Delivery Method Oxygen Flow Rate Sepsis Recent Fever Within 48 Hours Sepsis New/Unexplained Change in Mental Status Sepsis Action Taken by Snf Medications Current Medication List: was personally reviewed by me Laboratory Data Attestation: I reviewed the patient's lab results. Result diagrams: 04/24/21 14:30 04/24/21 14:30 Lab Results 04/24/21 04/24/21 04/24/21 Range/Units 14:30 14:30 14:30 WBC 10.71 (4.8-10.8) K/uL RBC 4.08 L (4.7-6.1) M/uL Hgb 11.6 L (14.0-18.0) g/dL Hct 35.4 L (42-52) % MCV 86.8 (80-100) fL MCH 28.4 (25-34) pg MCHC 32.8 (32-36) g/dL RDW Std Deviation 44.1 (36.4-46.3) fL RDW Coeff of Larry 14.3 (11.5-14.5) % Plt Count 155 (130-400) K/uL MPV 9.6 (7.4-10.4) fL Immature Gran % (Auto) 1.3 % Neut % (Auto) 88.1 % Lymph % (Auto) 2.5 % [place] % (Auto) 6.6 % Eos % (Auto) 1.3 % Baso % (Auto) 0.2 % Neut # (Auto) 9.43 H (1.4-6.5) K/uL Lymph # (Auto) 0.27 L (1.2-3.4) K/uL [place] # (Auto) 0.71 H (0.11-0.59) K/uL Eos # (Auto) 0.14 (0-0.5) K/uL Baso # (Auto) 0.02 (0-0.2) K/uL Immature Gran # (Auto) 0.14 H (0.00-0.02) K/uL PT 12.1 H (9.0-12.0) Seconds INR 1.2 H (0.9-1.1) APTT 30.7 (21.0-31.0) Seconds PTT Ratio 1.2 Sodium 134 L (136-145) mmol/L Potassium 3.7 (3.5-5.1) mmol/L Chloride 103 (98-107) mmol/L Carbon Dioxide 27 (21-32) mmol/L Anion Gap 4.0 (3-11) BUN 15 (7-18) mg/dl Creatinine 0.89 (0.6-1.4) mg/dl Est Cr Clr Drug Dosing 90.5 ml/min Est GFR ( Amer) 109.2 ml/min Est GFR (Non-Af Amer) 94.3 ml/min BUN/Creatinine Ratio 17.4 (10-20) Glucose 119 H (70-99) mg/dl Calcium 7.8 L (8.5-10.1) mg/dl Total Bilirubin 0.6 (0.2-1) mg/dl AST 21 (15-37) U/L ALT 19 (12-78) U/L Alkaline Phosphatase 71 (45-117) U/L Troponin I 0.124 H* (0-0.045) ng/ml Total Protein 6.0 L (6.4-8.2) gm/dl Albumin 1.9 L (3.4-5.0) gm/dl Globulin 4.1 H (2.5-4.0) gm/dl Albumin/Globulin Ratio 0.5 L (0.9-2) Lipase 32 L (73-393) U/L COVID-19 Eval Order SARS-CoV-2 (PCR) (Negative) 04/24/21 04/24/21 Range/Units 16:24 16:24 WBC (4.8-10.8) K/uL RBC (4.7-6.1) M/uL Hgb (14.0-18.0) g/dL Hct (42-52) % MCV (80-100) fL MCH (25-34) pg MCHC (32-36) g/dL RDW Std Deviation (36.4-46.3) fL RDW Coeff of Larry (11.5-14.5) % Plt Count (130-400) K/uL MPV (7.4-10.4) fL Immature Gran % (Auto) % Neut % (Auto) % Lymph % (Auto) % [place] % (Auto) % Eos % (Auto) % Baso % (Auto) % Neut # (Auto) (1.4-6.5) K/uL Lymph # (Auto) (1.2-3.4) K/uL [place] # (Auto) (0.11-0.59) K/uL Eos # (Auto) (0-0.5) K/uL Baso # (Auto) (0-0.2) K/uL Immature Gran # (Auto) (0.00-0.02) K/uL PT (9.0-12.0) Seconds INR (0.9-1.1) APTT (21.0-31.0) Seconds PTT Ratio Sodium (136-145) mmol/L Potassium (3.5-5.1) mmol/L Chloride (98-107) mmol/L Carbon Dioxide (21-32) mmol/L Anion Gap (3-11) BUN (7-18) mg/dl Creatinine (0.6-1.4) mg/dl Est Cr Clr Drug Dosing ml/min Est GFR ( Amer) ml/min Est GFR (Non-Af Amer) ml/min BUN/Creatinine Ratio (10-20) Glucose (70-99) mg/dl Calcium (8.5-10.1) mg/dl Total Bilirubin (0.2-1) mg/dl AST (15-37) U/L ALT (12-78) U/L Alkaline Phosphatase (45-117) U/L Troponin I (0-0.045) ng/ml Total Protein (6.4-8.2) gm/dl Albumin (3.4-5.0) gm/dl Globulin (2.5-4.0) gm/dl Albumin/Globulin Ratio (0.9-2) Lipase (73-393) U/L COVID-19 Eval Order Covid19 at [facility] SARS-CoV-2 (PCR) NEGATIVE (Negative) Administered Medications Discontinued Medications Enoxaparin Sodium (Enoxaparin 80 Mg/0.8 Ml Syr) 80 mg SQ NOW ONE Stop: 04/24/21 18:05 Last Admin: 04/24/21 18:30 Dose: 80 mg Documented by: [id number] Sodium Chloride (Nss) 500 mls @ 999 mls/hr IV .Q31M STA Stop: 04/24/21 14:32 Last Infusion: 04/24/21 14:51 Dose: 0 mls/hr Documented by: [id number] Admin: 04/24/21 14:19 Dose: 999 mls/hr Documented by: [id number] Ioversol (Optiray 320 125ml) 110 ml IV ONCE ONE Stop: 04/24/21 15:41 Last Admin: 04/24/21 15:40 Dose: 1 ml Documented by: [id number] Morphine Sulfate (Morphine Sulfate 4 Mg/Ml 1 Ml Carp\Vial) 4 mg IV Q30M PRN PRN Reason: Pain Stop: 05/08/21 14:01 Last Admin: 04/24/21 14:19 Dose: 4 mg Documented by: [id number] Ondansetron HCl (Ondansetron Inj 2 Mg/Ml 2 Ml Vial) 4 mg IV NOW STA Stop: 04/24/21 14:03 Last Admin: 04/24/21 14:18 Dose: 4 mg Documented by: [id number] Imaging Data Radiologist's Impression: Abdomen/Pelvis CT 04/24/21 14:03 CT OF THE ABDOMEN AND PELVIS WITH CONTRAST CLINICAL HISTORY: Metastatic esophageal carcinoma. Chest and abdominal pain. COMPARISON STUDY: None. TECHNIQUE: Following IV administration of 110 mL of Optiray, axial images of the abdomen and pelvis were obtained from the lung bases to the proximal femurs. Images were reviewed in the axial, sagittal, and coronal planes. IV contrast was administered without complication. Automated exposure control was utilized for the study. A dose lowering technique was utilized adhering to the principles of ALARA. CT DOSE: 665.72 mGy.cm FINDINGS: Please note that the chest CT will be reported separately. A left pleural effusion, left lower lobe and lingular airspace opacity, irregular pulmonary nodules and pulmonary emboli are better depicted on that exam. Mass- like thickening at the gastroesophageal junction is noted. Multiple hypodense hepatic lesions measure up to 2.2 cm. The spleen, adrenal glands and pancreas are unremarkable. There is no biliary or pancreatic ductal dilatation. No hydronephrosis. There are several indeterminate renal lesions which measure up to 2 cm. These do not measure water attenuation. Extensive retroperitoneal lymphadenopathy is present. Index left para-aortic lymph node measures 2.6 cm. There is retroperitoneal edema with collaterals. Lymphadenopathy results in mass effect upon the IVC which appears patent. There is no bowel obstruction. There are numerous omental/peritoneal nodules which measure up to 1.7 cm. Several small indeterminate sclerotic lesions within the pelvis are present. No pneum atosis, free air or portal venous gas is present. IMPRESSION: 1. Mass-like thickening at the gastroesophageal junction which likely reflects the primary tumor. 2. Numerous hepatic metastases. Extensive retroperitoneal lymphadenopathy and multiple peritoneal implants. 3. No bowel obstruction. 4. Retroperitoneal edema with collaterals, as described above. 5. Indeterminate bilateral renal lesions. These may reflect metastases. No hydronephrosis. ACT 112: Negative or not required by law. Electronically signed by: Tavo Pham M.D. 04/24/2021 4:20 PM Chest CTA 04/24/21 14:03 CT ANGIOGRAPHY OF THE CHEST, PULMONARY EMBOLUS PROTOCOL CLINICAL HISTORY: Atypical chest pain. Esophageal cancer. COMPARISON STUDY: Chest CT April 18, 2021. Chest radiograph April 20, 2021. TECHNIQUE: Following IV administration of 110 mL of Optiray, helical axial images of the chest were obtained utilizing the pulmonary embolus protocol. Maximal intensity projections and sagittal and coronal reformats were viewed on an independent 3D workstation. IV contrast was administered without complication. Automated exposure control was utilized for the study. A dose lowering technique was utilized adhering to the principles of ALARA. FINDINGS: This exam is compromised by respiratory motion artifact. Multiple right-sided pulmonary emboli are noted. Embolus burden has diminished since CT of April 18, 2021. Loculated moderate-sized left pleural effusion has increased in size since prior exam. There may be left pleural thickening. Extensive left lower lobe airspace opacity has increased. Innumerable irregular nodules throughout the lungs are noted. These have slightly increased since prior exam. Index left upper lobe lesion measures 1.4 cm. There has been interval development of a 2.9 cm airspace opacity within the right upper lobe on axial image 130 256. There is no pneumothorax. No suspicious lesions are identified within the bony thorax. Masslike thickening at the gastroesophageal junction is noted. Hepatic metastases are better depicted on the CT of the abdomen and pelvis which will be reported separately. IMPRESSION: 1. Multiple right-sided pulmonary emboli. Interval decrease in embolus burden since CT of April 18, 2021. 2. Increase in size of a moderate left pleural effusion with increase in extensive left lower lobe airspace opacity. This may reflect atelectasis or pneumonia. Underlying pulmonary infarct cannot be excluded. 3. Innumerable irregular nodules. The lungs which have mildly increased. These favor metastatic disease. A superimposed infectious process could appear similar. 4. Interval development of a 2.9 cm subpleural airspace opacity within the right upper lobe. A pulmonary infarct is favored however an infectious process could appear similar. 5. Redemonstration of masslike thickening at the gastroesophageal junction which likely reflects the primary tumor. ACT 112: Negative or not required by law. Electronically signed by: Tavo Pham M.D. 04/24/2021 4:05 PM Discharge Plan Visit Data Chief Complaint: Shortness of Breath/Dyspnea ED Provider: Jevon Garcia Discharge Problem: Bilateral pulmonary embolism, Pleural effusion, Chest pain Patient Disposition: Admitted As Inpatient Discharge Instructions Interventions: ED Discharge Assessment Last Done: 04/24/21 19:55 Discharge Problem: Chest pain Qualifiers: Chest pain type: unspecified Qualified Code(s): R07.9 - Chest pain, unspecified
[2021-04-24 14:47] LABS: Basophils # (auto) 0.02 K/uL (0-0.2); Basophils % (auto) 0.2 %; Eosinophils # (auto) 0.14 K/uL (0-0.5); Eosinophils % (auto) 1.3 %; Hematocrit (blood only) 35.4 % (42-52); Hemoglobin 11.6 g/dL (14.0-18.0); Immature Granulocytes # (auto) 0.14 K/uL (0.00-0.02); Immature Granulocytes % (auto) 1.3 %; Lymphocytes # (auto) 0.27 K/uL (1.2-3.4); Lymphocytes % (auto) 2.5 %; Mean Corpuscular Hemoglobin 28.4 pg (25-34); Mean Corpuscular Hgb Conc 32.8 g/dL (32-36); Mean Corpuscular Volume 86.8 fL (80-100); Mean Platelet Volume 9.6 fL (7.4-10.4); Monocytes # (auto) 0.71 K/uL (0.11-0.59); Monocytes % (auto) 6.6 %; Neutrophils # (auto) 9.43 K/uL (1.4-6.5); Neutrophils % (auto) 88.1 %; Platelet Count 155 K/uL (130-400); RDW Coefficient of Variation 14.3 % (11.5-14.5); RDW Standard Deviation 44.1 fL (36.4-46.3); Red Blood Count 4.08 M/uL (4.7-6.1); White Blood Count 10.71 K/uL (4.8-10.8)
[2021-04-24 14:58] LABS: INR 1.2 (0.9-1.1); Partial Thromboplastin Ratio 1.2; Partial Thromboplastin Time 30.7 Seconds (21.0-31.0); Prothrombin Time 12.1 Seconds (9.0-12.0)
[2021-04-24 15:09] LABS: Albumin Level 1.9 gm/dl (3.4-5.0); BUN Creatinine Ratio 17.4 (10-20); Calcium 7.8 mg/dl (8.5-10.1); Creatinine Clr Calc Pharmacy 90.5 ml/min; Est GFR (African American) 109.2 ml/min; Est GFR (Non-African American) 94.3 ml/min; Potassium 3.7 mmol/L (3.5-5.1)
[2021-04-24 15:24] LABS: Albumin Globulin Ratio 0.5 (0.9-2); Bilirubin,Total 0.6 mg/dl (0.2-1); Globulin 4.1 gm/dl (2.5-4.0); Troponin I 0.124 ng/ml (0-0.045)
[2021-04-24] MEDS ORDERED: OPTIRAY 320 125ml IV ONE (15:40)
--- NOTE | 2021-04-24 16:06 | CT Scan Report ---
CT ANGIOGRAPHY OF THE CHEST, PULMONARY EMBOLUS PROTOCOL CLINICAL HISTORY: Atypical chest pain. Esophageal cancer. COMPARISON STUDY: Chest CT April 18, 2021. Chest radiograph April 20, 2021. TECHNIQUE: Following IV administration of 110 mL of Optiray, helical axial images of the chest were o btained utilizing the pulmonary embolus protocol. Maximal intensity projections and sagittal and cor onal reformats were viewed on an independent 3D workstation. IV contrast was administered without co mplication. Automated exposure control was utilized for the study. A dose lowering technique was ut ilized adhering to the principles of ALARA. FINDINGS: This exam is compromised by respiratory motion artifact. Multiple right-sided pulmonary em boli are noted. Embolus burden has diminished since CT of April 18, 2021. Loculated moderate-sized left pleural effusion has increased in size since prior exam. There may be left pleural thickening. E xtensive left lower lobe airspace opacity has increased. Innumerable irregular nodules throughout the lungs are noted. These have slightly increased since prior exam. Index left upper lobe lesion measur es 1.4 cm. There has been interval development of a 2.9 cm airspace opacity within the right upper lo be on axial image 130 256. There is no pneumothorax. No suspicious lesions are identified within the bony thorax. Masslike thickening at the gastroesophageal junction is noted. Hepatic metastases are be tter depicted on the CT of the abdomen and pelvis which will be reported separately. IMPRESSION: 1. Multiple right-sided pulmonary emboli. Interval decrease in embolus burden since CT of April 18, 2021. 2. Increase in size of a moderate left pleural effusion with increase in extensive left lower lobe ai rspace opacity. This may reflect atelectasis or pneumonia. Underlying pulmonary infarct cannot be exc luded. 3. Innumerable irregular nodules. The lungs which have mildly increased. These favor metastatic disea se. A superimposed infectious process could appear similar. 4. Interval development of a 2.9 cm subpleural airspace opacity within the right upper lobe. A pulmon ko infarct is favored however an infectious process could appear similar. 5. Redemonstration of masslike thickening at the gastroesophageal junction which likely reflects the primary tumor. ACT 112: Negative or not required by law. Electronically signed by: Tavo Pham M.D. 04/24/2021 4:05 PM
--- NOTE | 2021-04-24 16:22 | CT Scan Report ---
CT OF THE ABDOMEN AND PELVIS WITH CONTRAST CLINICAL HISTORY: Metastatic esophageal carcinoma. Chest and abdominal pain. COMPARISON STUDY: None. TECHNIQUE: Following IV administration of 110 mL of Optiray, axial images of the abdomen and pelvis w ere obtained from the lung bases to the proximal femurs. Images were reviewed in the axial, sagittal, and coronal planes. IV contrast was administered without complication. Automated exposure control w as utilized for the study. A dose lowering technique was utilized adhering to the principles of KARI Barahona. CT DOSE: 665.72 mGy.cm FINDINGS: Please note that the chest CT will be reported separately. A left pleural effusion, left lo wer lobe and lingular airspace opacity, irregular pulmonary nodules and pulmonary emboli are better d epicted on that exam. Mass-like thickening at the gastroesophageal junction is noted. Multiple hypode nse hepatic lesions measure up to 2.2 cm. The spleen, adrenal glands and pancreas are unremarkable. T here is no biliary or pancreatic ductal dilatation. No hydronephrosis. There are several indeterminat e renal lesions which measure up to 2 cm. These do not measure water attenuation. Extensive retroperi toneal lymphadenopathy is present. Index left para-aortic lymph node measures 2.6 cm. There is retrop eritoneal edema with collaterals. Lymphadenopathy results in mass effect upon the IVC which appears p atent. There is no bowel obstruction. There are numerous omental/peritoneal nodules which measure up to 1.7 cm. Several small indeterminate sclerotic lesions within the pelvis are present. No pneumatosi s, free air or portal venous gas is present. IMPRESSION: 1. Mass-like thickening at the gastroesophageal junction which likely reflects the primary tumor. 2. Numerous hepatic metastases. Extensive retroperitoneal lymphadenopathy and multiple peritoneal imp lants. 3. No bowel obstruction. 4. Retroperitoneal edema with collaterals, as described above. 5. Indeterminate bilateral renal lesions. These may reflect metastases. No hydronephrosis. ACT 112: Negative or not required by law. Electronically signed by: Tavo Pham M.D. 04/24/2021 4:20 PM
--- NOTE | 2021-04-24 17:03 | History & Physical Report ---
Date of Service April 24, 2021 Assessment & Plan (1) Pleural effusion: (2) Elevated troponin: (3) Bilateral pulmonary embolism: (4) Dysphagia: (5) Primary adenocarcinoma of esophagus with metastasis: (6) Hypothyroidism: Plan: Pt with recurrent left pleural effusion, likely due to underlying metastatic esophageal cancer. CTA chest without propagation of bilateral PE diagnosed earlier this week. Discussed with patient goals of care. He requests that care be focused on palliation at this time. Does not want aggressive measures but would like to be made as comfortable as possible for whatever time he has left. His code status is DNR/DNI. - Pulmonology consult - ED spoke with provider and plan is for thoracentesis tomorrow. Will hold Eliquis, given single dose of Lovenox tonight then resume AC post-procedure - Pain control - PRN ativan for anxiety - Anti-emetics prn - ongoing issues with nausea - Liquid diet since pt reports solids are difficult for him and often catch - Oxygen prn for comfort/to maintain sats - Trend troponin, repeat EKG prn, monitor in PCU for now - Continue home meds as appropriate Pt seen and reviewed with attending physician, Dr. Mcleod. Plan of care discussed and as outlined above. Audrey Troy PA-C History of Present Illness Chief Complaint: Shortness of breath Primary Care Provider: Ryan Steven MD This is a 60 y/o male with a PMH of hypothyroidism, PORSHA on CPAP, metastatic adenocarcinoma of esophagus, known bilateral PE, and dyslipidemia who presents to the ED with progressive shortness of breath. He was recently admitted to this facility 04/18-04/21 with bilateral PE. Initially started on Lovenox then transitioned to Eliquis. Noted to have a small to moderate pleural effusion for which he was scheduled for repeat thoracentesis in two weeks. Last thoracentesis was on 04/14 - pt noted immediate improvement in respiratory status post tap. He has been following with oncology at [facility] [place], s/p FOLFOX on 03/30 (1 dose - could not tolerate due to nausea), also completed 12 radiation treatments. Recently transferred care to local oncology, Dr. Anderson. Seen this past week by palliative care to determine goals of care. Pt was scheduled with pulmonology in [place] on Monday for potential repeat thoracentesis for symptomatic relief. This morning, he noted some increased chest pain. He attempted to sit up around noon and became very short of breath with severe left-sided chest pain. When he was unable to catch his breath, his called EMS. In the ED, his pleural effusion has increased in size. Breathing improved with oxygen therapy and rest. He reports that his chest pain is manageable as long as he does not move around. He becomes short of breath if he lies flat so he prefers to be propped up in bed. Allergies Allergy/AdvReac Type Severity Reaction Status Date / Time No Known Allergies Allergy Unverified 04/24/21 15:54 Home Medications Medication Instructions Recorded Confirmed Type atorvastatin 40 mg tablet (Lipitor) 40 mg PO DAILY 04/18/21 04/24/21 History baclofen 10 mg tablet 10 mg PO DAILY 04/18/21 04/24/21 History levothyroxine 112 mcg tablet 112 mcg PO DAILY 04/18/21 04/24/21 History (Synthroid) lorazepam 0.5 mg tablet 1 mg PO Q8H PRN 04/18/21 04/24/21 History olanzapine 5 mg tablet 5 mg PO HS 04/18/21 04/24/21 History omeprazole 40 mg capsule,delayed 40 mg PO DAILY 04/18/21 04/24/21 History release ondansetron HCl 8 mg tablet 8 mg PO Q8H PRN 04/18/21 04/24/21 History oxycodone 10 mg tablet 10 mg PO Q4H PRN 04/18/21 04/24/21 History prochlorperazine maleate 10 mg 10 mg PO Q6H PRN 04/18/21 04/24/21 History tablet apixaban 5 mg tablet (Eliquis) 5 mg PO BID #74 tab 04/20/21 04/24/21 Rx guaifenesin 600 mg tablet, 600 mg PO Q12 7 Days #14 tab 04/20/21 04/24/21 Rx extended release 12 hr (Mucinex) morphine 15 mg tablet,extended 15 mg PO Q12H #30 tab 04/20/21 04/24/21 Rx release bisacodyl 5 mg tablet,delayed 10 mg PO DAILY 04/24/21 04/24/21 History release (Dulcolax (bisacodyl)) sennosides 8.6 mg-docusate sodium 1 tab PO DAILY 04/24/21 04/24/21 History 50 mg tablet (Senokot-S) Past Med/Surg History Medical History Abdominal pain Dyslipidemia Dysphagia Hypothyroidism Nausea PORSHA on CPAP Palliative care encounter Primary adenocarcinoma of esophagus with metastasis Shortness of breath Situational anxiety Surgical History H/O inguinal hernia repair History of vasectomy Family History Father Heart disease Brother Heart disease Brother Heart disease Social History Smoking Status: Never smoker Hx Alcohol Use: No Hx Substance Use: No Preferred Language: Cymro Communication Ability: Effective Scheduler Conveyor Required: No Beliefs That Will Affect Care: None marital status: Current Living Situation: Spouse Feels Safe at Home: Yes Assistive Devices: Cane Review of Systems Review of Systems: All systems reviewed & are unremarkable except as noted in HPI & below Constitutional: + fatigue, + anorexia and + weight loss (30 lbs since diagnosis in January); no fever and no chills Eyes: no diplopia and no worsening vision Ear, Nose, Mouth, Throat: + dysphagia; no nasal congestion and no nasal discharge Respiratory: + dyspnea and + pain on inspiration Cardiovascular: + chest pain and + orthopnea; no paroxysmal nocturnal dyspnea, no palpitations, no syncope and no edema Gastrointestinal: + abdominal pain (left-sided, associated with severe chest pain), + dysphagia and + constipation; no nausea and no vomiting Genitourinary: no dysuria, no urinary frequency or no hematuria Musculoskeletal: no joint pain and no myalgia Integumentary: no rash and no skin ulcer Neurologic: + generalized weakness; no dizziness and no headache(s) Physical Exam Constitutional: well developed and well nourished; no acute distress Eyes: + anicteric sclerae Neck: trachea midline Respiratory: no respiratory distress and does not use accessory muscles Auscultation: + diminished lung sounds (left base); no rales, no rhonchi and no wheezes Cardiovascular: Rate/Rhythm: regular rate and regular rhythm Heart Sounds: no gallop, no murmur and no cardiac rub Vessels: dorsalis pedis pulses present and radial pulses present Extremities: no pedal edema Gastrointestinal (Abdomen): Inspection/Auscultation: normal bowel sounds; abdomen not distended Percussion/Palpation: abdomen soft; abdomen nontender Musculoskeletal: Head/Neck/Chest: normocephalic, head atraumatic and neck supple Skin: no jaundice Neurologic: moves all extremities; no focal motor deficits Psychiatric: Affect: + tearful affect Mood: + anxious mood Results & Data Results & Data ([facility]) Vital Signs (Past 12 Hours) Vital Signs Temp Pulse Resp BP Pulse Ox 04/24/21 16:00 89 24 114/65 96 04/24/21 15:00 86 20 108/61 96 04/24/21 14:39 97 04/24/21 14:30 87 19 110/68 97 04/24/21 14:00 95 H 21 107/65 96 04/24/21 13:24 36.6 C 92 H 24 113/72 97 Laboratory Results Laboratory Results - last 24 hr 04/24/21 04/24/21 04/24/21 14:30 14:30 14:30 WBC 10.71 RBC 4.08 L Hgb 11.6 L Hct 35.4 L MCV 86.8 MCH 28.4 MCHC 32.8 RDW Std Deviation 44.1 RDW Coeff of Larry 14.3 Plt Count 155 MPV 9.6 Immature Gran % (Auto) 1.3 Neut % (Auto) 88.1 Lymph % (Auto) 2.5 Sullivan % (Auto) 6.6 Eos % (Auto) 1.3 Baso % (Auto) 0.2 Neut # (Auto) 9.43 H Lymph # (Auto) 0.27 L Sullivan # (Auto) 0.71 H Eos # (Auto) 0.14 Baso # (Auto) 0.02 Immature Gran # (Auto) 0.14 H PT 12.1 H INR 1.2 H APTT 30.7 PTT Ratio 1.2 Sodium 134 L Potassium 3.7 Chloride 103 Carbon Dioxide 27 Anion Gap 4.0 BUN 15 Creatinine 0.89 Est Cr Clr Drug Dosing 90.5 Est GFR ( Amer) 109.2 Est GFR (Non-Af Amer) 94.3 BUN/Creatinine Ratio 17.4 Glucose 119 H Calcium 7.8 L Total Bilirubin 0.6 AST 21 ALT 19 Alkaline Phosphatase 71 Troponin I 0.124 H* Total Protein 6.0 L Albumin 1.9 L Globulin 4.1 H Albumin/Globulin Ratio 0.5 L Lipase 32 L Diagnostic Findings Chest CTA 04/24/21 - IMPRESSION: 1. Multiple right-sided pulmonary emboli. Interval decrease in embolus burden since CT of April 18, 2021. 2. Increase in size of a moderate left pleural effusion with increase in extensive left lower lobe airspace opacity. This may reflect atelectasis or pneumonia. Underlying pulmonary infarct cannot be excluded. 3. Innumerable irregular nodules. The lungs which have mildly increased. These favor metastatic disease. A superimposed infectious process could appear similar. 4. Interval development of a 2.9 cm subpleural airspace opacity within the right upper lobe. A pulmonary infarct is favored however an infectious process could appear similar. 5. Redemonstration of masslike thickening at the gastroesophageal junction which likely reflects the primary tumor. CT Abd/Pel 04/24/21 - IMPRESSION: 1. Mass-like thickening at the gastroesophageal junction which likely reflects the primary tumor. 2. Numerous hepatic metastases. Extensive retroperitoneal lymphadenopathy and multiple peritoneal implants. 3. No bowel obstruction. 4. Retroperitoneal edema with collaterals, as described above. 5. Indeterminate bilateral renal lesions. These may reflect metastases. No hydronephrosis. Medications Administered Morphine Sulfate (Morphine Sulfate 4 Mg/Ml 1 Ml Carp\Vial) 4 mg IV Q30M PRN PRN Reason: Pain Stop: 05/08/21 14:01 Last Admin: 04/24/21 14:19 Dose: 4 mg Documented by: [id number] Discontinued Medications Sodium Chloride (Nss) 500 mls @ 999 mls/hr IV .Q31M STA Stop: 04/24/21 14:32 Last Infusion: 04/24/21 14:51 Dose: 0 mls/hr Documented by: [id number] Admin: 04/24/21 14:19 Dose: 999 mls/hr Documented by: [id number] Ioversol (Optiray 320 125ml) 110 ml IV ONCE ONE Stop: 04/24/21 15:41 Last Admin: 04/24/21 15:40 Dose: 1 ml Documented by: [id number] Ondansetron HCl (Ondansetron Inj 2 Mg/Ml 2 Ml Vial) 4 mg IV NOW STA Stop: 04/24/21 14:03 Last Admin: 04/24/21 14:18 Dose: 4 mg Documented by: [id number] Supervising Physician Co-Signing Physician Notes I have seen and examined the patient and have discussed the case with the provider above. I agree with the assessment and plan as stated. 60 yo M with metastatic esophageal adenocarcinoma presents with worsening dyspnea on exertion 2/2 progressed left sided pleural effusion. Recent admission as above. Currently with chest pain that alternates sides and feels like a spasm that lasts seconds, is very sharp, and then subsides. He is tolerating soft foods and is very constipated 2/2 ongoing narcotic use. Last BM was 10 days ago. Declines any suppository at this time, however, because he is afraid of how wiped out he will become with exertion by having to have a BM. He is tearful and anxious. Denies suicidal ideations. Urinating without issue. Physical exam reveals thin man is moderate distress with any exertion. No conversational dyspnea. Abdomen is NTND, cardiac exam reveals S1/2 without m/g/r, no edema, lungs clear to auscultation on the right, diminished breath sounds on the left. Cont plan as aboe with Lovenox in lieu of Eliquis periprocedurally, hold am dose. Restart anticoagulation post-procedure when cleared to give. Goal is quality of life, diminish pain, help him breathe and perform activities of daily living. Already hooked in with palliative at [facility]. Will need to work on constipation tomorrow after procedure once he is feeling better. Harsha, DO
[2021-04-24] MEDS ORDERED: ENOXAPARIN 80 MG/0.8 ML SYR SQ ONE (18:04)
[2021-04-24] MEDS ORDERED: ONDANSETRON INJ 2 MG/ML 2 ML VIAL IV PRN (18:05)
[2021-04-24] MEDS ORDERED: ALUMINUM/MAGNESIUM SUSP 50 ML, diphenhydrAMINE Syrup 125 MG, LIDOCAINE VISCOUS 2% SOLN ... PO PRN (21:42)
[2021-04-24] MEDS: MoRPHine SULFATE CR 15 MG TABCR PO SCH (22:16)
[2021-04-24] MEDS: guaiFENesin 600 MG TABCR PO SCH ×2 (22:17→23:02)
[2021-04-24] MEDS: OLANZapine 5 MG TABLET PO SCH (22:18)
[2021-04-24] MEDS: NSS + 20MEQ KCL 20 MEQ/1,000 ML BAG IV SCH (22:24)
[2021-04-25 02:44] LABS: Basophils # (auto) 0.02 K/uL (0-0.2); Basophils % (auto) 0.2 %; Eosinophils # (auto) 0.09 K/uL (0-0.5); Eosinophils % (auto) 0.9 %; Hematocrit (blood only) 32.7 % (42-52); Hemoglobin 10.7 g/dL (14.0-18.0); Immature Granulocytes # (auto) 0.09 K/uL (0.00-0.02); Immature Granulocytes % (auto) 0.9 %; Lymphocytes # (auto) 0.39 K/uL (1.2-3.4); Mean Corpuscular Hemoglobin 28.2 pg (25-34); Mean Corpuscular Hgb Conc 32.7 g/dL (32-36); Mean Corpuscular Volume 86.3 fL (80-100); Mean Platelet Volume 9.5 fL (7.4-10.4); Monocytes # (auto) 0.87 K/uL (0.11-0.59); Monocytes % (auto) 8.9 %; Neutrophils # (auto) 8.36 K/uL (1.4-6.5); Neutrophils % (auto) 85.1 %; Platelet Count 157 K/uL (130-400); RDW Coefficient of Variation 14.6 % (11.5-14.5); RDW Standard Deviation 44.4 fL (36.4-46.3); Red Blood Count 3.79 M/uL (4.7-6.1); White Blood Count 9.82 K/uL (4.8-10.8)
[2021-04-25] MEDS ORDERED: MoRPHine SULFATE 2 MG/ML CARP ONE (03:16)
[2021-04-25 03:20] LABS: BUN Creatinine Ratio 14.4 (10-20); Calcium 8.1 mg/dl (8.5-10.1); Creatinine Clr Calc Pharmacy 84.8 ml/min; Est GFR (African American) 101.9 ml/min; Est GFR (Non-African American) 87.9 ml/min; Potassium 4.2 mmol/L (3.5-5.1)
[2021-04-25 03:26] LABS: Troponin I 0.156 ng/ml (0-0.045)
[2021-04-25] MEDS: LORazepam 1 MG TAB PO PRN (03:31)
[2021-04-25] MEDS: LEVOTHYROXINE SODIUM 112 MCG TABLET PO SCH (05:43)
[2021-04-25] MEDS: bisacodyL 5 MG TABEC PO SCH (08:13)
[2021-04-25] MEDS: PANTOprazole 40 MG TAB PO SCH (08:13)
[2021-04-25] MEDS: MoRPHine SULFATE CR 15 MG TABCR PO SCH ×2 (08:13→21:14)
[2021-04-25] MEDS: SENNOSIDES 8.8 MG/5 ML UDC PO SCH (08:14)
[2021-04-25] MEDS: BACLOFEN 10 MG TAB PO SCH (08:18)
[2021-04-25] MEDS ORDERED: DOCUSATE SODIUM/SENNA 50/8.6MG TAB PO SCH (09:00)
[2021-04-25] MEDS ORDERED: ATORVASTATIN 40 MG TAB PO SCH (09:00)
[2021-04-25] MEDS: NSS + 20MEQ KCL 20 MEQ/1,000 ML BAG IV SCH ×2 (09:10→16:43)
[2021-04-25] MEDS ORDERED: fentaNYL citrate 100 MCG/2 ML VIAL IV STA ×2 (10:36→15:07)
--- NOTE | 2021-04-25 10:41 | Pulmonary Consultation ---
Date of Consultation April 25, 2021 Assessment & Plan (1) Bilateral pulmonary embolism: (2) Primary adenocarcinoma of esophagus with metastasis: (3) Pleural effusion: Impression: 60-year-old male with reported stage IV adenocarcinoma of the esophagus although his outpatient clinical notes were not available to review. He is being treated from his PE but returned due to chest pain shortness of breath and has an increasing pleural effusion. Plans were to address the effusion in the outpatient setting however the patient has not been able to make it to that appointment. His pain control is inadequate. Recommendations: 1. Abnormal CT scan: The patient demonstrates progression of disease in a very short interval. This is highly worrisome for progression of disease. He is not yet established with oncology here. Patient may clinically decline before he has the opportunity to meet with oncology. Aggressive symptom palliation should be undertaken. 2. Acute PE: Anticoagulation held for procedure today. Can restart this evening. 3. Pleural effusion: Discussed with patient options at this point time. Could pursue initial thoracentesis to see if it offers some clinical relief or proceed with Pleurx catheter placement. Given the rapid progression on his CT scans, I would favor Pleurx placement and the patient is in agreement to proceed. Unclear if this will impact his pain or not. 4. Patient is meeting with palliative care. He is DNR/DNI. Recommend engaging outpatient hospice. Needs more aggressive pain control Case management will be consulted to assist. He will need home health or palliative care to assist with drainage of the Pleurx catheter in the outpatient setting. History of Present Illness Attending Physician: Gloria Mcleod DO History of Present Illness Asked by hospitalist to evaluate this patient with pleural effusion likely from malignancy. Discussed with patient at bedside. This 60-year-old male is known to me from admission earlier this week. He was admitted with a PE and found to have a pleural effusion. Plans were to proceed with outpatient thoracentesis but unfortunately over the weekend the patient developed increasing pain and shortness of breath. He states the pain comes with any activity. It is not been controlled with outpatient medications. He was seen in the emergency room. Repeat CT scan was performed which revealed progression of the patient's metastatic disease and enlarging pleural fluid. Anticoagulation was held. He was admitted to the hospital given his elevated troponin. The patient does not report fevers chills night sweats or other constitutional symptoms. He is frustrated at his pain management plan currently. Allergies Allergy/AdvReac Type Severity Reaction Status Date / Time No Known Allergies Allergy Unverified 04/24/21 15:54 Home Medications Medication Instructions Recorded Confirmed Type atorvastatin 40 mg tablet (Lipitor) 40 mg PO DAILY 04/18/21 04/24/21 History baclofen 10 mg tablet 10 mg PO DAILY 04/18/21 04/24/21 History levothyroxine 112 mcg tablet 112 mcg PO DAILY 04/18/21 04/24/21 History (Synthroid) lorazepam 0.5 mg tablet 1 mg PO Q8H PRN 04/18/21 04/24/21 History olanzapine 5 mg tablet 5 mg PO HS 04/18/21 04/24/21 History omeprazole 40 mg capsule,delayed 40 mg PO DAILY 04/18/21 04/24/21 History release ondansetron HCl 8 mg tablet 8 mg PO Q8H PRN 04/18/21 04/24/21 History oxycodone 10 mg tablet 10 mg PO Q4H PRN 04/18/21 04/24/21 History prochlorperazine maleate 10 mg 10 mg PO Q6H PRN 04/18/21 04/24/21 History tablet apixaban 5 mg tablet (Eliquis) 5 mg PO BID #74 tab 04/20/21 04/24/21 Rx guaifenesin 600 mg tablet, 600 mg PO Q12 7 Days #14 tab 04/20/21 04/24/21 Rx extended release 12 hr (Mucinex) morphine 15 mg tablet,extended 15 mg PO Q12H #30 tab 04/20/21 04/24/21 Rx release bisacodyl 5 mg tablet,delayed 10 mg PO DAILY 04/24/21 04/24/21 History release (Dulcolax (bisacodyl)) sennosides 8.6 mg-docusate sodium 1 tab PO DAILY 04/24/21 04/24/21 History 50 mg tablet (Senokot-S) Patient History Medical History Abdominal pain Dyslipidemia Dysphagia Hypothyroidism Nausea PORSHA on CPAP Palliative care encounter Primary adenocarcinoma of esophagus with metastasis Shortness of breath Situational anxiety Surgical History H/O inguinal hernia repair History of vasectomy Family History Father Heart disease Brother Heart disease Brother Heart disease Social History Smoking Status: Never smoker Hx Alcohol Use: No Hx Substance Use: No Preferred Language: Pashto Communication Ability: Effective Batch Freezer Required: No Beliefs That Will Affect Care: None marital status: Current Living Situation: Spouse Other Information That Helps Us Care for You: No Feels Safe at Home: Yes Safety Concerns: Feels Safe At This Time Assistive Devices: Oxygen - Continuous Review of Systems 2 Review of Systems: Please refer to admission H&P Physical Exam Constitutional: WD/WN, vitals as above Neck: trachea midline, no thyromegaly Respiratory: normal respiratory effort; no respiratory distress and no labored breathing Decreased breath sounds with dullness to percussion at the left lung base Cardiovascular: RRR, no murmur, no edema Gastrointestinal (Abdomen): normal bowel sounds, soft, nontender, no hepatosplenomegaly Musculoskeletal: Extremities: extremities normal to inspection Skin: no rashes, warm and dry Lymphatic: no cervical lymphadenopathy Results & Data Results & Data ([facility]) Vital Signs (Past 12 Hours) Vital Signs Temp Pulse Pulse Resp BP BP Pulse Ox 04/25/21 07:42 36.6 C 83 19 98/62 L 92 04/25/21 07:29 88 04/25/21 03:41 36.7 C 91 H 24 106/66 92 04/24/21 23:49 36.9 C 89 20 107/65 91 Laboratory Results 04/25/21 02:20 04/25/21 02:20 Troponins minimally elevated Diagnostic Findings CT ANGIOGRAPHY OF THE CHEST, PULMONARY EMBOLUS PROTOCOL CLINICAL HISTORY: Atypical chest pain. Esophageal cancer. COMPARISON STUDY: Chest CT April 18, 2021. Chest radiograph April 20, 2021. TECHNIQUE: Following IV administration of 110 mL of Optiray, helical axial images of the chest were obtained utilizing the pulmonary embolus protocol. Maximal intensity projections and sagittal and coronal reformats were viewed on an independent 3D workstation. IV contrast was administered without complication. Automated exposure control was utilized for the study. A dose lowering technique was utilized adhering to the principles of ALARA. FINDINGS: This exam is compromised by respiratory motion artifact. Multiple right-sided pulmonary emboli are noted. Embolus burden has diminished since CT of April 18, 2021. Loculated moderate-sized left pleural effusion has increased in size since prior exam. There may be left pleural thickening. Extensive left lower lobe airspace opacity has increased. Innumerable irregular nodules throughout the lungs are noted. These have slightly increased since prior exam. Index left upper lobe lesion measures 1.4 cm. There has been interval development of a 2.9 cm airspace opacity within the right upper lobe on axial image 130 256. There is no pneumothorax. No suspicious lesions are identified within the bony thorax. Masslike thickening at the gastroesophageal junction is noted. Hepatic metastases are better depicted on the CT of the abdom en and pelvis which will be reported separately. IMPRESSION: 1. Multiple right-sided pulmonary emboli. Interval decrease in embolus burden since CT of April 18, 2021. 2. Increase in size of a moderate left pleural effusion with increase in extensive left lower lobe airspace opacity. This may reflect atelectasis or pneumonia. Underlying pulmonary infarct cannot be excluded. 3. Innumerable irregular nodules. The lungs which have mildly increased. These favor metastatic disease. A superimposed infectious process could appear similar. 4. Interval development of a 2.9 cm subpleural airspace opacity within the right upper lobe. A pulmonary infarct is favored however an infectious process could appear similar. 5. Redemonstration of masslike thickening at the gastroesophageal junction which likely reflects the primary tumor. PG Care Time/CCT Total # of Minutes Spent Total Time Spent with Patient: Total time spent is greater than 50% in coordination of care (as documented) at patient's floor/unit and/or counseling patient: Coding Level of Care Code 43878 Inpt Consult Level 4 Diagnoses Bilateral pulmonary embolism I26.99 Primary adenocarcinoma of esophagus with metastasis C15.9 Pleural effusion J90
[2021-04-25] MEDS ORDERED: LIDOCAINE 1% LOCAL 20 ML VIAL ONE (12:11)
--- NOTE | 2021-04-25 13:07 | Procedure Note ---
Procedure Note Date of Service April 25, 2021 Note Procedure: Ultrasound guided left Pleurx catheter placement. Indication: Recurrent malignant effusion Consent: Signed by patient and verified with timeout prior to procedure. Anesthesia: 15 mL's 1% lidocaine without epinephrine locally. Sedation: 100 mcg fentanyl Card Setter: Dr. Magan Carrera Procedure: Appropriate radiographic films had been reviewed prior to commencement of the procedure. Risks and benefits were again discussed with patient consent was verified. The patient was placed in the left side up lateral decubitus position. Limited thoracic ultrasound was performed which revealed left-sided pleural effusion wi th compressive atelectasis. Site appropriate for the pleurotomy was marked. Skin was prepped and draped in normal sterile fashion. Using 1% lidocaine, the skin and soft tissues down to the pleura were anesthetized. A tract extending approximately 8 to 10 cm anteriorly from the pleurotomy site was also infiltrated and a site appropriate for the exit of the Pleurx catheter was marked. A 1 cm skin sun was made at the posterior site. The catheter over the needle apparatus was advanced into the pleural space with pleural fluid easily aspirated. A wire was passed through the catheter after the needle was removed. The Pleurx catheter was then loaded on the tunneling device. A 1cm skin incision was made at the anterior catheter exit site. The tunneling device with the attached Pleurx catheter were passed from the anterior incision back to the posterior incision until the cuff of the Pleurx catheter resided within the subcutaneous tissues. The catheter was palpated along its course and no kinking was identified. Serial dilatation was then performed over the wire with the pull-away catheter being left in place. The Pleurx was removed from the tunneling mechanism and advanced through the peel-away catheter. The catheter sheath was then peeled back as the Pleurx catheter was advanced into the pleural space. The Pleurx catheter course was palpated and no kinks were felt. It was attached to wall suction and a total of 600 mL's of bloody fluid was removed. Using 1-0 silk, 2 stitches were placed at the exit Pleurx site and the catheter secured in place. 2 small silk sutures were used to close the posterior incision. A sterile dressing was applied. The patient tolerated the procedure well without obvious complication. Post procedure x-ray is pending. Estimated blood loss: Less than 10 mL's Coding CPT Codes Pulmonary/Thoracic - Pulmonary and Thoracic: 21619 Insert pleural cathereter w/cuff ([id number]) Pulmonary/Thoracic - Pulmonary and Thoracic: 79545 US, Chest, real time with imaging documentation ([id number]) [facility] [place] Codes (Charges) Pulmonary/Thoracic Procedure 1: Pulmonary and Thoracic: 34667 Insert pleural cathereter w/cuff Procedure 2: Pulmonary and Thoracic: 28057 US, Chest, real time with imaging documentation
--- NOTE | 2021-04-25 13:33 | XRay Report ---
XR chest 1V portable CLINICAL HISTORY: post L pleurex placement TECHNIQUE: Single frontal radiograph of the chest was obtained. Comparison: Comparison is made to chest one view 04/20/2021 FINDINGS: Interval placement of left chest tube terminating in the left hemithorax. Stable right portacatheter. The cardiomediastinal silhouette is normal. Bilateral lower lung predominant opacities are seen. A l eft pleural effusion is decreased in size. IMPRESSION: 1. Bilateral lower lung predominant airspace opacities which may represent atelectasis, pneumonia, a nd/or aspiration. 2. Interval placement of left pleural catheter with decrease in size of left effusion. No pneumothor ax is seen. ACT 112: Negative or not required by law. Electronically signed by: Heron Dominguez M.D. 04/25/2021 1:32 PM
--- NOTE | 2021-04-25 14:54 | Hospitalist Progress Note ---
Date of Service April 25, 2021 Assessment & Plan (1) Pleural effusion: Plan: 600cc taken off the right side with thoracentesis this afternoon. Pleurx catheter in place. No post-procedure complications; CXR without pneumothorax. Havng acute pain in side-try one dose Toradol and use opioids PRN. (2) Elevated troponin: Plan: Flat rise with no increase, no reports of cardiac chest pain. Also, echo with no acute wall motion abnormalities. No further cardiac workup. (3) Bilateral pulmonary embolism: Plan: Restart his Eliquis tonight. (4) Dysphagia: Plan: Soft, mechanical diet-whatever he can tolerate-unrestricted diet. (5) Primary adenocarcinoma of esophagus with metastasis: Plan: plan as above. (6) Constipation due to opioid therapy: Plan: Try suppository, Miralax PRN. Cont Senna and Bisacodyl. Encouraged to ambulate as tolerated. May need relistor (7) DVT prophylaxis: Plan: Eliquis DNR/DNI Dispo-to home with Hospice. Gloria Mcleod DO [facility] Hospitalist Admission and Anticipated Discharge Date Admission Date: April 24, 2021 Subjective 60 yo M with esophageal adenocarcinoma which is progressed to stage IV. Uncontrolled pain. Admitted with recurrent malignant pleural effusions. Pleurx placement today on right after 600cc drained. Reports breathing is somewhat better. He states he is "in the dark" and requests to review his CT scan. We discussed the process of hospice if he chose palliative care at this time. He also said he was waiting to touch base with his oncologist regarding available therapies at this point. He reports knowing that he is at stage 4 and verbalized understanding that his cancer has spread into his lungs and liver. He is tearful. Review of Systems Review of Systems: At least ten systems were reviewed and negative except as indicated in HPI above. Physical Exam Physical Exam: CONSTITUTIONAL: WNWD, vitals as above, generally emotionally upset but no acute distress. EYES: normal conjunctivae, no scleral icterus ENT: external ear and nose normal, MMM RESPIRATORY: clear to auscultation on the left with diminished breath sounds at right lung base. Pleurex catheter in place covered by dry dressing on the right CARDIOVASCULAR: regular rate and rhythm, S1 and 2 heard without murmurs, gallops or rubs, no JVD, no peripheral edema CHEST: +R catheter GASTROINTESTINAL: slightly distended, nontender, no guarding MUSCULOSKELETAL: generalized weakness, head is normocephalic and atraumatic SKIN: warm and dry NEUROLOGIC: CN 2-12 grossly intact, normal cognition, normal speech, no gross focal deficit PSYCHIATRIC: alert cooperative and oriented to person, place and time. Results & Data Results & Data ([facility]) Vital Signs (Past 12 Hours) Vital Signs Temp Pulse Pulse Resp BP BP Pulse Ox 04/25/21 11:52 36.6 C 89 22 96/67 L 97/63 L 93 04/25/21 07:42 36.6 C 83 19 98/62 L 92 04/25/21 07:29 88 04/25/21 03:41 36.7 C 91 H 24 106/66 92 Laboratory Results Short CBC 04/25/21 Range/Units 02:20 WBC 9.82 (4.8-10.8) K/uL Hgb 10.7 L (14.0-18.0) g/dL Hct 32.7 L (42-52) % Plt Count 157 (130-400) K/uL BMP 04/24/21 04/25/21 14:30 02:20 Sodium 134 L 133 L Potassium 3.7 4.2 Chloride 103 102 Carbon Dioxide 27 27 BUN 15 14 Creatinine 0.89 0.95 Glucose 119 H 115 H Calcium 7.8 L 8.1 L Cardiac Enzymes 04/24/21 04/24/21 04/25/21 Range/Units 14:30 20:34 02:20 Troponin I 0.124 H* 0.156 H* Cancelled (0-0.045) ng/ml 04/25/21 Range/Units 02:20 Troponin I 0.156 H* (0-0.045) ng/ml Liver Function 04/24/21 Range/Units 14:30 Total Bilirubin 0.6 (0.2-1) mg/dl AST 21 (15-37) U/L ALT 19 (12-78) U/L Alkaline Phosphatase 71 (45-117) U/L Albumin 1.9 L (3.4-5.0) gm/dl Diagnostic Findings Chest X-Ray 04/25/21 13:00 XR chest 1V portable CLINICAL HISTORY: post L pleurex placement TECHNIQUE: Single frontal radiograph of the chest was obtained. Comparison: Comparison is made to chest one view 04/20/2021 FINDINGS: Interval placement of left chest tube terminating in the left hemithorax. Stable right portacatheter. The cardiomediastinal silhouette is normal. Bilateral lower lung predominant opacities are seen. A left pleural effusion is decreased in size. IMPRESSION: 1. Bilateral lower lung predominant airspace opacities which may represent atelectasis, pneumonia, and/or aspiration. 2. Interval placement of left pleural catheter with decrease in size of left effusion. No pneumothorax is seen. ACT 112: Negative or not required by law. Electronically signed by: Heron Dominguez M.D. 04/25/2021 1:32 PM Medications Administered Current Inpatient Medications Hydrocodone Bitart/Acetaminophen (Acetaminophen/Hydrocodone Elix 15 Ml/Cup Udp) 15 ml PO Q6H PRN PRN Reason: Pain Stop: 05/08/21 18:04 Last Admin: 04/25/21 03:31 Dose: 15 ml Documented by: Apixaban (Apixaban 5 Mg Tablet) 5 mg PO BID MARYAN Stop: 05/25/21 20:59 Baclofen (Baclofen 10 Mg Tab) 10 mg PO DAILY MARYAN Stop: 05/25/21 08:59 Last Admin: 04/25/21 08:18 Dose: 10 mg Documented by: Bisacodyl (Bisacodyl 5 Mg Tabec) 10 mg PO DAILY MARYAN Stop: 05/25/21 08:59 Last Admin: 04/25/21 08:13 Dose: 10 mg Documented by: Al Hydrox/Mg Hydrox/Simethicone 50 ml/Diphenhydramine HCl 125 mg/Lidocaine HCl 40 ml/Sucralfate 10,000 mg/ BARCODE IDENTIFIER 1 ea 0 ml PO Q4H PRN PRN Reason: throat pain Stop: 05/24/21 21:41 Guaifenesin (Guaifenesin 600 Mg Tabcr) 600 mg PO Q12 MARYAN Stop: 05/24/21 20:59 Last Admin: 04/24/21 23:02 Dose: 600 mg Documented by: Potassium Chloride/Sodium Chloride (Normal Saline W/20 Meq Kcl) 20 meq in 1,000 mls @ 100 mls/hr IV .Q10H MARYAN Stop: 05/24/21 18:04 Last Admin: 04/25/21 09:10 Dose: 100 mls/hr Documented by: Levothyroxine Sodium (Levothyroxine Sodium 112 Mcg Tablet) 112 mcg PO DAILYBB [facility] Stop: 05/25/21 06:29 Last Admin: 04/25/21 05:43 Dose: 112 mcg Documented by: Lorazepam (Lorazepam 1 Mg Tab) 1 mg PO Q8H PRN PRN Reason: Anxiety Stop: 05/24/21 20:00 Last Admin: 04/25/21 03:31 Dose: 1 mg Documented by: Morphine Sulfate (Morphine Sulfate Cr 15 Mg Tabcr) 15 mg PO BID [facility] Stop: 05/08/21 20:59 Last Admin: 04/25/21 08:13 Dose: 15 mg Documented by: Morphine Sulfate (Morphine Sulfate 2 Mg/Ml Carp) 2 mg IV Q3H PRN PRN Reason: Pain Stop: 05/09/21 03:10 Olanzapine (Olanzapine 5 Mg Tablet) 5 mg PO HS [facility] Stop: 05/24/21 20:59 Last Admin: 04/24/21 22:18 Dose: 5 mg Documented by: Ondansetron HCl (Ondansetron Inj 2 Mg/Ml 2 Ml Vial) 4 mg IV Q6H PRN PRN Reason: Nausea Stop: 05/24/21 18:04 Pantoprazole Sodium (Pantoprazole 40 Mg Tab) 40 mg PO QAM [facility] Stop: 05/25/21 08:59 Last Admin: 04/25/21 08:13 Dose: 40 mg Documented by: Sennosides (Sennosides 8.8 Mg/5 Ml Udc) 8.8 mg PO QAM [facility] Stop: 05/25/21 08:59 Last Admin: 04/25/21 08:14 Dose: 8.8 mg Documented by:
[2021-04-25] MEDS ORDERED: KETOROLAC TROMETHAMINE 15 MG/ML VIAL IV ONE (15:19)
[2021-04-25] MEDS ORDERED: GLYCERIN ADULT 12 SUPP/BOX SUPP PR ONE (15:19)
[2021-04-25] MEDS: guaiFENesin 600 MG TABCR PO SCH ×2 (16:43→21:14)
[2021-04-25] MEDS: APIXABAN 5 MG TABLET PO SCH (21:15)
[2021-04-25] MEDS: OLANZapine 5 MG TABLET PO SCH (21:15)
[2021-04-26] MEDS: NSS + 20MEQ KCL 20 MEQ/1,000 ML BAG IV SCH ×2 (02:55→11:32)
[2021-04-26] MEDS ORDERED: HEPARIN 100 UNIT/ML 5ML FLUSH FLUSH PRN (03:39)
[2021-04-26] MEDS: MoRPHine SULFATE 2 MG/ML CARP IV PRN ×2 (04:48→21:03)
[2021-04-26] MEDS: LORazepam 1 MG TAB PO PRN ×2 (04:48→21:06)
--- NOTE | 2021-04-26 05:33 | Electrocardiogram Report ---
Test Reason : Blood Pressure : / mmHG Vent. Rate : 091 BPM Atrial Rate : 091 BPM P-R Int : 122 ms QRS Dur : 080 ms QT Int : 392 ms P-R-T Axes : 044 025 001 degrees QTc Int : 482 ms Normal sinus rhythm Nonspecific ST and T wave abnormality Abnormal ECG When compared with ECG of 18-APR-2021 13:19, No significant change was found Confirmed by Ankit Davis ([id number]) on 04/26/2021 5:33:22 AM Referred By: REFERRED SELF Confirmed By:Ankit Davis
[2021-04-26] MEDS ORDERED: GLYCERIN ADULT 12 SUPP/BOX SUPP PR PRN (06:00)
[2021-04-26] MEDS: LEVOTHYROXINE SODIUM 112 MCG TABLET PO SCH (06:10)
[2021-04-26] MEDS ORDERED: SIMETHICONE 80 MG CHEW PO PRN (08:34)
[2021-04-26] MEDS ORDERED: METHYLNALTREXONE BROMIDE 12 MG/0.6 ML VIAL SQ SCH (09:00)
[2021-04-26] MEDS ORDERED: fentaNYL 12 MCG/HR TDSY TD SCH (09:00)
[2021-04-26] MEDS: BACLOFEN 10 MG TAB PO SCH (09:53)
[2021-04-26] MEDS: guaiFENesin 600 MG TABCR PO SCH ×2 (09:54→21:06)
[2021-04-26] MEDS: PANTOprazole 40 MG TAB PO SCH (09:54)
[2021-04-26] MEDS: APIXABAN 5 MG TABLET PO SCH ×2 (09:55→21:06)
[2021-04-26] MEDS: SENNOSIDES 8.8 MG/5 ML UDC PO SCH (09:55)
[2021-04-26] MEDS: bisacodyL 5 MG TABEC PO SCH (09:58)
[2021-04-26] MEDS ORDERED: Nursing to Pharmacy Communication SCH (11:30)
--- NOTE | 2021-04-26 11:57 | Pain Management Consultation ---
Date of Consultation April 26, 2021 Assessment & Plan (1) Primary adenocarcinoma of esophagus with metastasis: (2) Cancer related pain: (3) Constipation due to opioid therapy: (4) Bilateral pulmonary embolism: 1. We spoke at length about his opiate regimen as currently prescribed. With his increasing difficulty with swallowing recommend conversion to fentanyl 12 mcg every 72 hours with continuation of hydrocodone elixir 15 mL every 6 hours as needed. He may continue to utilize morphine IV 2 mg for breakthrough pain not relieved by oral elixir. 2. Recommend Relistor 12 mg subcu q.2D to augment opiate-induced constipation regimen. Simethicone chew tablets were added for gas related pain. 3. Continue baclofen. 4. Consider addition of Cymbalta if needed in the future to assist with situational anxiety as well as pain relief. 5. The patient and I spoke at length about hospice and agrees to proceed. Case management and hospitalist team was informed. 6. There are no interventional pain management options available at this time for this patient. However, I would be happy to see him in my office if the need arises while he is transitioning to hospice care. 7. We will follow up with him tomorrow morning to confirm appropriateness of opiate regimen. History of Present Illness Attending Physician: Nikki Crook MD History of Present Illness 60-year-old male with recent diagnosis of stage IV metastatic adenocarcinoma of esophagus, known bilateral PE, and increasing dysphagia presents to the emergency room on 04/25/2021 with progressive shortness of breath. He underwent Pleurx catheter insertion on 04/25/2021 with improvement in work of breathing. Reports that when he is lying still his pain is relatively well controlled at 3 out of 10 (pain goal is 3 out of 10) but with any activity even turning over in bed his pain can escalate from 3 out of 10 to 7-8 out of 10. Pain is predominantly over the left lower quadrant of the abdomen with some left upper and left chest wall pain. Pain is characterized as aching cramping distention type pressure pain. He states that he has had a significant amount of constipation on his current opiate regimen with 1 possibly 2 bowel movements a week. He states that he has gas related pain in the suppository yesterday did not prompt a large enough bowel movement for him to feel less distended. He reports that it is increasingly difficult for him to eat as well as swallow tablets with his esophageal carcinoma. In addition he reports a significant amount of nausea and at times dry heaving related to his opiate consumption. When questioned about the efficacy of his hydrocodone elixir he reports that it is a little too early to tell but feels that it is slightly beneficial. He r eports that he is consistently utilizing a bowel regimen but feels that it is not strong enough to allow him to overcome the opiate-induced constipation. He has worked with palliative care and was scheduled to meet with him on 04/28/2021 to discuss further care. During the interview he states that he is concerned over not having enough social emotional support for his and remaining family members. He states that it is a priority for him to ensure their wellbeing. Pain Assessment Pain scale - at its best (0-10): 3 Pain scale - at its worst (0-10): 8 Allergies Allergy/AdvReac Type Severity Reaction Status Date / Time No Known Allergies Allergy Unverified 04/24/21 15:54 Home Medications Medication Instructions Recorded Confirmed Type atorvastatin 40 mg tablet (Lipitor) 40 mg PO DAILY 04/18/21 04/24/21 History baclofen 10 mg tablet 10 mg PO DAILY 04/18/21 04/24/21 History levothyroxine 112 mcg tablet 112 mcg PO DAILY 04/18/21 04/24/21 History (Synthroid) lorazepam 0.5 mg tablet 1 mg PO Q8H PRN 04/18/21 04/24/21 History olanzapine 5 mg tablet 5 mg PO HS 04/18/21 04/24/21 History omeprazole 40 mg capsule,delayed 40 mg PO DAILY 04/18/21 04/24/21 History release ondansetron HCl 8 mg tablet 8 mg PO Q8H PRN 04/18/21 04/24/21 History oxycodone 10 mg tablet 10 mg PO Q4H PRN 04/18/21 04/24/21 History prochlorperazine maleate 10 mg 10 mg PO Q6H PRN 04/18/21 04/24/21 History tablet apixaban 5 mg tablet (Eliquis) 5 mg PO BID #74 tab 04/20/21 04/24/21 Rx guaifenesin 600 mg tablet, 600 mg PO Q12 7 Days #14 tab 04/20/21 04/24/21 Rx extended release 12 hr (Mucinex) morphine 15 mg tablet,extended 15 mg PO Q12H #30 tab 04/20/21 04/24/21 Rx release bisacodyl 5 mg tablet,delayed 10 mg PO DAILY 04/24/21 04/24/21 History release (Dulcolax (bisacodyl)) sennosides 8.6 mg-docusate sodium 1 tab PO DAILY 04/24/21 04/24/21 History 50 mg tablet (Senokot-S) Pain History Pain Location Full Body Front + Back: 1. 2. Pain Intensity [facility] Combined Pain Scale: 6-Mod to Severe - Significant limitations of ADLs. Hard to do anything Pain scale - at its best (0-10): 3 Pain scale - at its worst (0-10): 8 Timing Timing: all day and episodic Character Pain character: cramping and sharp Patient History Medical History Abdominal pain Cancer related pain Dyslipidemia Dysphagia Hypothyroidism Nausea PORSHA on CPAP Palliative care encounter Primary adenocarcinoma of esophagus with metastasis Shortness of breath Situational anxiety Surgical History H/O inguinal hernia repair History of vasectomy Family History Father Heart disease Brother Heart disease Brother Heart disease Social History Smoking Status: Never smoker Hx Alcohol Use: No Hx Substance Use: No Preferred Language: Khmer Communication Ability: Effective Wafer Fab Operator Required: No Beliefs That Will Affect Care: None marital status: Current Living Situation: Spouse Other Information That Helps Us Care for You: No Feels Safe at Home: Yes Safety Concerns: Feels Safe At This Time Assistive Devices: Oxygen - Continuous Physical Exam Physical Exam: Constitutional: Well-developed, well-nourished, normal weight male, tearful at times during the interview. Psych: Awake, alert, and oriented 3 with normal affect and mood. Recent memory appears grossly intact Eyes: Pupils are equally round and reactive to light with normal size pupils, eyelids appear normal Ear, nose, mouth, and throat: Moist nasal and oral membranes, lips and tongues appear normal, no external ear abnormalities are noted Neck: The trachea is midline without deviation and no thyromegaly is noted Respiratory: Normal respiratory effort without distress, no audible wheezes or rhonchi CV: Normal S1 and S2, warm distal extremities Chest: Deferred GI/abdomen: Distended with mild to moderate pain predominantly at the left lower quadrant. No rebound. Musculoskeletal: Head is normocephalic and atraumatic, gait not observed Cervical: Lordotic curve: Normal Range of motion is normal with extension, flexion, side-bending, rotation Strength: Strength is grossly equal bilaterally with 5 out of 5 strength in all planes Thoracic: Kyphotic curve: Normal Range of motion is normal with extension, flexion, side-bending, rotation Tenderness: Nontender over the axial midline Lumbar: Lordotic curve: Normal Range of motion is normal with extension, flexion, side-bending, rotation Strength: Strength is grossly equal bilaterally with 5 out of 5 strength in all planes Skin: No rashes, lesions, ulcers, or induration noted. A-port in place over right chest wall Neuro: No nystagmus noted, the tongue is midline, the patient is able to rotate their head bilaterally : Deferred Results ([facility]) Diagnostic Review CT: enhanced, reports reviewed and images reviewed CT Findings: 04/24/21 CT OF THE ABDOMEN AND PELVIS WITH CONTRAST CLINICAL HISTORY: Metastatic esophageal carcinoma. Chest and abdominal pain. COMPARISON STUDY: None. TECHNIQUE: Following IV administration of 110 mL of Optiray, axial images of the abdomen and pelvis were obtained from the lung bases to the proximal femurs. Images were reviewed in the axial, sagittal, and coronal planes. IV contrast was administered without complication. Automated exposure control was utilized for the study. A dose lowering technique was utilized adhering to the principles of ALARA. CT DOSE: 665.72 mGy.cm FINDINGS: Please note that the chest CT will be reported separately. A left pleural effusion, left lower lobe and lingular airspace opacity, irregular pulmonary nodules and pulmonary emboli are better depicted on that exam. Mass-li ke thickening at the gastroesophageal junction is noted. Multiple hypodense hepatic lesions measure up to 2.2 cm. The spleen, adrenal glands and pancreas are unremarkable. There is no biliary or pancreatic ductal dilatation. No hydronephrosis. There are several indeterminate renal lesions which measure up to 2 cm. These do not measure water attenuation. Extensive retroperitoneal lymphadenopathy is present. Index left para-aortic lymph node measures 2.6 cm. There is retroperitoneal edema with collaterals. Lymphadenopathy results in mass effect upon the IVC which appears patent. There is no bowel obstruction. There are numerous omental/peritoneal nodules which measure up to 1.7 cm. Several sma ll indeterminate sclerotic lesions within the pelvis are present. No pneumatosis, free air or portal venous gas is present. IMPRESSION: 1. Mass-like thickening at the gastroesophageal junction which likely reflects the primary tumor. 2. Numerous hepatic metastases. Extensive retroperitoneal lymphadenopathy and multiple peritoneal implants. 3. No bowel obstruction. 4. Retroperitoneal edema with collaterals, as described above. 5. Indeterminate bilateral renal lesions. These may reflect metastases. No hydronephrosis. 04/24/21 CT ANGIOGRAPHY OF THE CHEST, PULMONARY EMBOLUS PROTOCOL CLINICAL HISTORY: Atypical chest pain. Esophageal cancer. COMPARISON STUDY: Chest CT April 18, 2021. Chest radiograph April 20, 2021. TECHNIQUE: Following IV administration of 110 mL of Optiray, helical axial images of the chest were obtained utilizing the pulmonary embolus protocol. Maximal intensity projections and sagittal and coronal reformats were viewed on an independent 3D workstation. IV contrast was administered without complication. Automated exposure control was utilized for the study. A dose lowering technique was utilized adhering to the principles of ALARA. FINDINGS: This exam is compromised by respiratory motion artifact. Multiple right-sided pulmonary emboli are noted. Embolus burden has diminished since CT of April 18, 2021. Loculated moderate-sized left pleural effusion has increased in size since prior exam. There may be left pleural thickening. Extensive left lower lobe airspace opacity has increased. Innumerable irregular nodules throughout the lungs are noted. These have slightly increased since prior exam. Index left upper lobe lesion measures 1.4 cm. There has been interval development of a 2.9 cm airspace opacity within the right upper lobe on axial image 130 [id number]. There is no pneumothorax. No suspicious lesions are identified within the bony thorax. Masslike thickening at the gastroesophageal junction is noted. Hepatic metastases are better depicted on the CT of the abdomen and pelvis which will be reported separately. IMPRESSION: 1. Multiple right-sided pulmonary emboli. Interval decrease in embolus burden since CT of April 18, 2021. 2. Increase in size of a moderate left pleural effusion with increase in extensive left lower lobe airspace opacity. This may reflect atelectasis or pneumonia. Underlying pulmonary infarct cannot be excluded. 3. Innumerable irregular nodules. The lungs which have mildly increased. These favor metastatic disease. A superimposed infectious process could appear similar. 4. Interval development of a 2.9 cm subpleural airspace opacity within the right upper lobe. A pulmonary infarct is favored however an infectious process could appear similar. 5. Redemonstration of masslike thickening at the gastroesophageal junction which likely reflects the primary tumor. Previous Records Review Previous Records: personally reviewed by me Opioid Risk Assessment Opioid Risk Assessment: risk assessment performed and no issues identified
--- NOTE | 2021-04-26 14:19 | Palliative Care Consultation ---
Date of Consultation April 26, 2021 Assessment & Plan (1) Palliative care encounter: Mr. Rocha is a 60 year old male that presented to the [facility] with shortness of breath and was later diagnosed with a PE. He has metastatic esophageal cancer that was diagnosed on February [address] Fox after a second EGD and ultrasound guided biopsy. He received one dose of FOLFOX for treatment on March 30 at [facility] but due to intractable nausea, has not resumed chemotherapy treatment. He has completed 10 fractions of radiation and even had some follow up and evaluation at [facility]. He was scheduled to see Dr. Anderson; locally, however, did not have this appointment yet, scheduled for 04/29. A thoracentesis was performed on April 14 with 650mL removed which was his initial thoracentesis. He recently was informed by [facility] that his cancer has transitioned from Stage III to Stage IV. Additional PMH includes hypothyroidism and PORSHA. Palliative Medicine was re-consulted to discuss overall goals of care. I was able to sit with Siddharth and his , Sandra, for over an hour today, discussing overall goals. He was AAOx3 and able to have a meaningful conversation. The patient was tearful throughout our conversation, as he was on previous admission on 04/19. He reiterated that he enjoys kayaking, owns a [employer] boat, and just purchased a [place]iary home outside of [place], [place]. The patient has three adult children: Jaspal (just graduated high school last year), Rachel who is local and Von who is in [place] and a septic pump truck driver. They do not have any grandchildren. We revisited what we discussed previously regarding his realistic approach to his care. He said that if there was a chance to be cured, he would want to go for it, but understands that not likely. He desperately wants to speak with the oncologist to He mentioned that he and Sandra have discussed his care and she does not want him to give up, but he is realistic and if his time is limited, he would want to remain out of the hospital and have his symptoms managed. They were able to meet with Dr. Anderson last week and was told he had an aggressive cancer. They are curious to what his thoughts are with the new metastasis noted. I messaged him on [employer] and he stated:He has disease progression and aggressive disease. His disease is incurable. Hospice is reasonable if he decide. If clinically he is declining than chemotherapy may not be a good option. This was discussed with family and patient. I asked case management to arrange a call with one of the hospice liason's to answer some of their questions regarding hospice, which occurred today. Siddharth and his decided to proceed with a transition to home with hospice service support. Case management and Hospitalist aware. Pulmonary was gracious to spend time educating the patients on how to drain the pleur-x which was so receptive by the patient and his as caregiver strain is a large concern for his , Sandra. For now, Palliative will follow. Anticipate discharge home with [place] [facility] tomorrow 04/27. (2) Situational anxiety: Pt with situational anxiety. He is understandably very tearful throughout the encounter, I encouraged continued emotion presence as it is important to process his emotions in a positive manner. Ativan 1 mg Q8 PRN currently ordered and he is taking one or two doses per day. Unfortunately, with increased breathing difficulty, need to be cognizant of respiratory depression unless full hospice focus. Continue Zyprexa 5 mg QHS (3) Primary adenocarcinoma of esophagus with metastasis: Recently [facility] progressed his cancer from stage III to stage IV and advised that his case is now confirmed terminal. Would be helpful for the patient and his to have a call with [facility] provider for actual prognosis life expectancy timeframe. We did discuss the term 'terminal' likely being 6 months; however, suggest they confirm with the oncologist. They were able to meet with Dr. Anderson last week and was told he had an aggressive cancer. They are curious to what his thoughts are with the new metastasis noted. I messaged him on [employer] and he stated:He has disease progression and aggressive disease. His disease is incurable. Hospice is reasonable if he decide. If clinically he is declining than chemotherapy may not be a good option. This was discussed with family and patient. (4) Chest pain: Pt describes pretty constant left lower abdominal pain/left chest pain with radiation to the right lower abdomen, up through his anterior chest, and further radiating into his right scapular and neck region. At rest, he notes this pain to be 6/10. Last admission, the patient was started on long-acting opioids, Contin 15 mg BID with known progression of his illness would likely lead to difficulty swallowing. He has stated that he has started to have difficulty with swallowing. Pain management was consulted this morning and transitioned him to a Fentanyl patch 12 mcg TD Q3 days. Continue Baclofen 10 mg daily. Chest pain type: unspecified Qualified Code(s): R07.9 - Chest pain, unspecified (5) Dysphagia: Sometimes it feels like he has a lump in his throat, but he is still able to swallow most of his medications. He is able to tolerate liquids, cream of wheat, applesauce, and oatmeal. He would love to eat a cheeseburger, but can't. Since last admission, this has become more difficult for him. (6) Dyspnea: Pt currently on 4LNC and is being treated for pneumonia as well, on abx. Patient had a thoracentesis on 04/14 with 650mL removed, now saw Dr. Carrera and had a pleur-x placed. History of Present Illness Reason for Consultation: Goals of care Requesting Physician: Dr. Crook Attending Physician: Nikki Crook MD History of Present Illness Mr. Rocha is a 60 year old male that presented to the [facility] with shortness of breath and was later diagnosed with a PE. He has metastatic eso phageal cancer that was diagnosed on February [address] Fox after a second EGD and ultrasound guided biopsy. He received one dose of FOLFOX for treatment on March 30 at [facility] but due to intractable nausea, has not resumed chemotherapy treatment. He has completed 10 fractions of radiation and even had some follow up and evaluation at [facility]. He was scheduled to see Dr. Anderson; locally, however, did not have this appointment yet, scheduled for 04/29. A thoracentesis was performed on April 14 with 650mL removed which was his initial thoracentesis. He recently was informed by [facility] that his cancer has transitioned from Stage III to Stage IV. Additional PMH includes hypothyroidism and PORSHA. Palliative Medicine was re-consulted to discuss overall goals of care. Thanks for re-involving Palliative Medicine with this individual. Allergies Allergy/AdvReac Type Severity Reaction Status Date / Time No Known Allergies Allergy Unverified 04/24/21 15:54 Home Medications Medication Instructions Recorded Confirmed Type atorvastatin 40 mg tablet (Lipitor) 40 mg PO DAILY 04/18/21 04/24/21 History baclofen 10 mg tablet 10 mg PO DAILY 04/18/21 04/24/21 History levothyroxine 112 mcg tablet 112 mcg PO DAILY 04/18/21 04/24/21 History (Synthroid) lorazepam 0.5 mg tablet 1 mg PO Q8H PRN 04/18/21 04/24/21 History olanzapine 5 mg tablet 5 mg PO HS 04/18/21 04/24/21 History omeprazole 40 mg capsule,delayed 40 mg PO DAILY 04/18/21 04/24/21 History release ondansetron HCl 8 mg tablet 8 mg PO Q8H PRN 04/18/21 04/24/21 History oxycodone 10 mg tablet 10 mg PO Q4H PRN 04/18/21 04/24/21 History prochlorperazine maleate 10 mg 10 mg PO Q6H PRN 04/18/21 04/24/21 History tablet apixaban 5 mg tablet (Eliquis) 5 mg PO BID #74 tab 04/20/21 04/24/21 Rx guaifenesin 600 mg tablet, 600 mg PO Q12 7 Days #14 tab 04/20/21 04/24/21 Rx extended release 12 hr (Mucinex) morphine 15 mg tablet,extended 15 mg PO Q12H #30 tab 04/20/21 04/24/21 Rx release bisacodyl 5 mg tablet,delayed 10 mg PO DAILY 04/24/21 04/24/21 History release (Dulcolax (bisacodyl)) sennosides 8.6 mg-docusate sodium 1 tab PO DAILY 04/24/21 04/24/21 History 50 mg tablet (Senokot-S) Patient History Medical History (Updated 04/26/21 @ 15:10 by EUGENE Meyer) Abdominal pain Cancer related pain Dyslipidemia Dysphagia Dysphagia Dyspnea Hypothyroidism Nausea PORSHA on CPAP Palliative care encounter Palliative care encounter Primary adenocarcinoma of esophagus with metastasis Shortness of breath Situational anxiety Surgical History H/O inguinal hernia repair History of vasectomy Family History Father Heart disease Brother Heart disease Brother Heart disease Social History Smoking Status: Never smoker Hx Alcohol Use: No Hx Substance Use: No Preferred Language: Kiswahili Communication Ability: Effective Medication Care Manager Required: No Beliefs That Will Affect Care: None marital status: Current Living Situation: Spouse Other Information That Helps Us Care for You: No Feels Safe at Home: Yes Safety Concerns: Feels Safe At This Time Assistive Devices: Oxygen - Continuous Review of Systems Review of Systems: Bulan System Assessment Scale: Pain: 2/3 Nausea: 0/3 SOB: 1/3 Tiredness: 1/3 Lack of Appetite: 1/3 palliative performance scale: 40% Physical Exam Constitutional: healthy appearing, cooperative and comfortable Respiratory: normal respiratory effort Auscultation: + diminished lung sounds Cardiovascular: Rate/Rhythm: regular rate and regular rhythm Heart Sounds: normal S1 and normal S2 Extremities: normal capillary refill Gastrointestinal (Abdomen): Inspection/Auscultation: abdomen normal to inspection Percussion/Palpation: + abdomen rigid and abdomen soft Skin: + pallor Psychiatric: Orientation: alert and oriented x 3 Insight: good insight Judgement: good judgement Results & Data ([facility]) Vital Signs (Past 12 Hours) Vital Signs Temp Pulse Pulse Resp BP Pulse Ox 04/26/21 11:02 36.8 C 77 18 104/66 96 04/26/21 08:50 84 04/26/21 07:54 36.4 C L 86 18 97/59 L 95 04/26/21 04:20 37.2 C 89 17 114/70 96 04/26/21 02:54 37.0 C 87 18 108/66 95 PG Care Time/CCT Total # of Minutes Spent Total Time Spent with Patient: Total time spent is greater than 50% in coordination of care (as documented) at patient's floor/unit and/or counseling patient: 100 minutes with >50% of that time spent assessing the patient, discussing goals of care with family, addressing symptom management needs, and collaborating with IDT Coding Level of Care Code 26392 Initial Inpt Care Lvl 3 Diagnoses Palliative care encounter Z51.5 Situational anxiety F41.8 Primary adenocarcinoma of esophagus with metastasis C15.9 Chest pain R07.9 Chest pain type: unspecified Dysphagia R13.10 Dyspnea R06.00 Time Spent (min) 100
--- NOTE | 2021-04-26 14:53 | Hospitalist Progress Note ---
Date of Service April 26, 2021 Assessment & Plan (1) Pleural effusion: Plan: 600cc taken off the right side with thoracentesis on 04/25. Pleurx catheter in place. No post-procedure complications; CXR without pneumothorax. Toradol for pain control and use opioids PRN. Patient and the family requested for palliative medicine evaluation given metastatic adenocarcinoma of the esophagus. Patient to likely be discharged on home hospice. Pain medicine was consulted. Started on fentanyl 12 mcg patch every 72 hours, hydrocodone 15 mL every 6 hours as needed listed 10 mg subcutaneously, continue with baclofen/Cymbalta. (2) Elevated troponin: Plan: Patient denies any chest pain. Transthoracic echo without any wall motion abnormalities. Patient is hemodynamically doing okay. Continue to monitor. (3) Bilateral pulmonary embolism: Plan: Restart his Eliquis tonight. (4) Dysphagia: Plan: Soft, mechanical diet-whatever he can tolerate-unrestricted diet. (5) Primary adenocarcinoma of esophagus with metastasis: Plan: plan as above. (6) Constipation due to opioid therapy: Plan: Try suppository, Miralax PRN. Cont Senna and Bisacodyl. Encouraged to ambulate as tolerated. May need relistor (7) DVT prophylaxis: Plan: Eliquis DNR/DNI Dispo-to home with Hospice. Admission and Anticipated Discharge Date Admission Date: April 24, 2021 Subjective Doing okay this morning. Resting comfortably but does report discomfort with deep coughing. Reports left lower quadrant abdominal discomfort today. No nausea or vomiting. Other review of system is negative. Review of Systems Review of Systems: All systems reviewed & are unremarkable except as noted in HPI & below Physical Exam Physical Exam: General: A&Ox3 HENT: NCAT, MMM, EOMI Eyes: PERRLA Neck: Supple, normal range of motion CVS: normal rate and rhythm Resp: b/l creased breath sounds, Pleurx catheter in place Abdomen: Soft, ND/NT, +BS Extremities: Absence of any edema Neuro: face symmetric, no gross focal deficits appreciated Skin: warm and dry, no rashes/lesions/errythema MSK: normal ROM, no joint swelling/erythema Results & Data Results & Data ([facility]) Vital Signs (Past 12 Hours) Vital Signs Temp Pulse Pulse Resp BP Pulse Ox 04/26/21 11:02 36.8 C 77 18 104/66 96 04/26/21 08:50 84 04/26/21 07:54 36.4 C L 86 18 97/59 L 95 04/26/21 04:20 37.2 C 89 17 114/70 96 04/26/21 02:54 37.0 C 87 18 108/66 95
--- NOTE | 2021-04-26 16:38 | Pulmonology Progress Note ---
Date of Service April 26, 2021 Assessment & Plan (1) Bilateral pulmonary embolism: (2) Primary adenocarcinoma of esophagus with metastasis: (3) Pleural effusion: Plan: Impression: 60-year-old male with reported stage IV adenocarcinoma of the esophagus although his outpatient clinical notes were not available to review. He is being treated from his PE but returned due to chest pain shortness of breath and has an increasing pleural effusion. Plans were to address the effusion in the outpatient setting however the patient has not been able to make it to that appointment. His pain control is inadequate. Recommendations: 1. Abnormal CT scan: Patient with known esophageal cancer. Pleural fluid is malignant. 2. Acute PE: Continue anticoagulation. This is not need to be held at home for draining of Pleurx catheter. 3. Pleural effusion: Pleurx catheter placed by Dr. Carrera. Patient's training today at bedside with drainage of Pleurx catheter. Advised patient to drain daily and follow discharge. Keep a record of all output from the catheter. Paperwork completed and submitted for Pleurx supplies to be sent to the patient's home. Will work with patient's again tomorrow to drain Pleurx before discharge home on hospice. 4. Disposition: He is DNR/DNI. Patient is meeting with palliative care. Anticipate discharge to hospice tomorrow. Thank you for including us in the care of this patient. We will follow patient to discharge to assist with Pleurx catheter management. Admission and Anticipated Discharge Date Admission Date: April 24, 2021 Subjective Attending: Dr. Jones Patient seen and examined at bedside. He was a very pleasant 60-year-old male that unfortunately has metastatic esophageal cancer. A Pleurx catheter was placed by Dr. Carrera last week. Training of the and bedside nurse and catheter draining was performed today. Patient denies any fever, chills, sweats, rigors. He has no chest pain or tightness. He did have some discomfort with reexpansion of the pleura as the Pleurx was drained. Otherwise no acute complaints. Plan is to discharge home tomorrow on hospice. Review of Systems Review of Systems: All systems reviewed & are unremarkable except as noted in Subjective Physical Exam Physical Exam: GENERAL : No acute distress EYES: No icterus, gaze conjugate NOSE: No evidence of epistaxis MOUTH: No lesions or candidiasis NECK: Supple LUNGS: Breath sounds equal throughout all lung zones. No notable wheezes, rales or rhonchi. Some discomfort with deep inspiration. HEART: Regular, rate controlled ABDOMEN: Soft, NT, ND, BS Present EXTREMITIES: No LE edema, pedal pulses intact NEURO: A&OX3 Results & Data Results & [facility] ([facility]) Vital Signs (Past 12 Hours) Vital Signs Temp Pulse Pulse Resp BP Pulse Ox 04/26/21 16:12 87 04/26/21 11:02 36.8 C 77 18 104/66 96 04/26/21 08:50 84 04/26/21 07:54 36.4 C L 86 18 97/59 L 95 Laboratory Results 04/25/21 02:20 04/25/21 02:20 COVID-19 Results 04/24/21 16:24 SARS-CoV-2 (PCR) NEGATIVE PG Care Time/CCT Total # of Minutes Spent Total Time Spent with Patient: Total time spent is greater than 50% in coordination of care (as documented) at patient's floor/unit and/or counseling patient: 60 minutes including drainage at Pleurx catheter and training of . Patient present the entire time. Coding Level of Care Code 16397 Subseq Hosp Care Lvl 3 (25 - SIGNIFICANT, SEPARATELY IDENTIFIABLE ) Diagnoses Bilateral pulmonary embolism I26.99 Primary adenocarcinoma of esophagus with metastasis C15.9 Pleural effusion J90 Time Spent (min) 60
[2021-04-26] MEDS: CHECK fentaNYL PATCH PLACEMENT SCH ×2 (16:41→23:59)
[2021-04-26] MEDS: OLANZapine 5 MG TABLET PO SCH (21:06)
[2021-04-27] MEDS: MoRPHine SULFATE 2 MG/ML CARP IV PRN ×3 (00:44→12:04)
[2021-04-27] MEDS ORDERED: guaiFENesin SUGAR FREE 200 MG/10 ML UDC PO SCH (04:15)
[2021-04-27] MEDS: LEVOTHYROXINE SODIUM 112 MCG TABLET PO SCH (06:11)
[2021-04-27] MEDS: APIXABAN 5 MG TABLET PO SCH (08:36)
[2021-04-27] MEDS: PANTOprazole 40 MG TAB PO SCH (08:36)
[2021-04-27] MEDS: CHECK fentaNYL PATCH PLACEMENT SCH (08:36)
[2021-04-27] MEDS: bisacodyL 5 MG TABEC PO SCH (08:40)
[2021-04-27] MEDS: BACLOFEN 10 MG TAB PO SCH (08:40)
--- NOTE | 2021-04-27 08:59 | Pain Management Progress Note ---
Date of Service April 27, 2021 Assessment & Plan (1) Cancer related pain: (2) Constipation due to opioid therapy: (3) Chest pain: Chest pain type: unspecified Qualified Code(s): R07.9 - Chest pain, unspecified (4) Pleural effusion: Plan: * No changes were made as he says that his pain is well managed with the current regimen. * Continue fentanyl patch 12 mcg/hour, Lortab 15 mL every 6 hours if needed. He is aware that IV morphine will be discontinued upon discharge. * Continue current bowel regimen of Dulcolax, senna, Relistor. * Could consider the addition of Cymbalta for anxiety/pain relief. * Will sign off on the patient. Please call with any questions or concerns. Admission and Anticipated Discharge Date Admission Date: April 24, 2021 Subjective Mr. Rocha is a 60 year old male with stage IV metastatic adenocarcinoma of the esophagus. In regards to pain he states that he is doing well with the transition from MS Contin to Fentanyl patch. Pain is ranging from 2-6/10 today. The baseline pain is well managed. The pain is worse when he moves around after resting for a while where the Pleurx catheter was placed but that discomfort is short. Lortab is providing relief of breakthrough pain. Has used IV Morphine 4mg IV yesterday and 4mg so far today which has provided some relief of the left sided chest pain. In regards to constipation he has had a few small bowel movements over the last 2 days. He does have a bowel regimen of Dulcolax, senna, and Relistor. No abdominal pain. Case discussed with Dr. Siri Agarwal Physical Exam Physical Exam: GENERAL: This is a very pleasant 60 year old male. Does not appear in any acute distress. HEAD/FACE: Normocephalic and atraumatic. EYES: No drainage or conjunctival injection. ENT: Hoarse voice. RESPIRATORY: Patient with unlabored breathing. No signs of respiratory distress. CHEST/AXILLA: Chest movement symmetrical. No deformities noted. SKIN: [place], warm and dry. No rash noted. MS/EXTREMITY: No swelling, no deformities. Moving extremities appropriately. NEURO: Alert and appears oriented. Speech is fluent. Cranial Nerves are grossly intact. PSYCH: Alert, pleasant, affect is calm
--- NOTE | 2021-04-27 09:06 | Palliative Care Progress Note ---
Date of Service April 27, 2021 Assessment & Plan (1) Palliative care encounter: Plan: Patient tearful this morning. Last admission we had him started on scheduled Ativan. See below for details. Plan is for home with hospice today. Patient is worried about the transition and maintaining his dignity as he progresses through his illness. Thanks for allowing us to participate with this individuals care. (2) Situational anxiety: Plan: Pt with situational anxiety. He is understandably very tearful throughout the encounter, I encouraged continued emotion presence as it is important to process his emotions in a positive manner. Ativan 1 mg Q8 PRN currently ordered and he is taking one or two doses per day. As we have transitioned to a hospice approach to his care, will schedule routine Ativan. Continue Zyprexa 5 mg QHS (3) Primary adenocarcinoma of esophagus with metastasis: Plan: Recently [facility] progressed his cancer from stage III to stage IV and advised that his case is now confirmed terminal. Would be helpful for the patient and his to have a call with [facility] provider for actual prognosis life expectancy timeframe. We did discuss the term 'terminal' likely being 6 months; however, suggest they confirm with the oncologist. They were able to meet with Dr. Anderson last week and was told he had an aggressive cancer. They are curious to what his thoughts are with the new metastasis noted. I messaged him on [employer] and he stated:He has disease progression and aggressive disease. His disease is incurable. Hospice is reasonable if he decide. If clinically he is declining than chemotherapy may not be a good option. This was discussed with family and patient. (4) Chest pain: Plan: Pt describes pretty constant left lower abdominal pain/left chest pain with radiation to the right lower abdomen, up through his anterior chest, and further radiating into his right scapular and neck region. At rest, he notes this pain to be 6/10. Last admission, the patient was started on long-acting opioids, MS. Contin 15 mg BID with known progression of his illness would likely lead to difficulty swallowing. He has stated that he has started to have difficulty with swallowing. Pain management was consulted this morning and transitioned him to a Fentanyl patch 12 mcg TD Q3 days. As this was just started yesterday, we will allow hospice to alter this dosing. Continue Baclofen 10 mg daily. (5) Dysphagia: Plan: Since last admission, this has become more difficult for him. Patient tolerated cereal this morning. (6) Dyspnea: Plan: Pt currently on 3LNC and is being treated for pneumonia as well, on abx. Patient had a thoracentesis on 04/14 with 650mL removed, now saw Dr. Carrera and had a pleur-x placed. was trained on how to drain pleur-x yesterday. Admission and Anticipated Discharge Date Admission Date: April 24, 2021 Subjective patient tolerating Fentanyl patch. Discussed with hospice and goal to increase this tomorrow. Overall support offered this morning. Goal to return home with hospice support later today pending equipment delivery. called pt to provide support. Review of Systems Review of Systems: [place] [facility] Assessment Scale: Pain: 2/3 Nausea: 0/3 SOB: 1/3 Tiredness: 1/3 Lack of Appetite: 1/3 palliative performance scale: 40% Physical Exam Constitutional: healthy appearing, cooperative and comfortable Respiratory: normal respiratory effort Auscultation: + diminished lung sounds Cardiovascular: Rate/Rhythm: regular rate and regular rhythm Heart Sounds: normal S1 and normal S2 Extremities: normal capillary refill Gastrointestinal (Abdomen): Inspection/Auscultation: abdomen normal to inspection Percussion/Palpation: + abdomen rigid and abdomen soft Skin: + pallor Psychiatric: Orientation: alert and oriented x 3 Insight: good insight Judgement: good judgement Results & Data ([facility]) Vital Signs (Past 12 Hours) Vital Signs Temp Pulse Pulse Pulse Resp BP BP 04/27/21 08:42 36.4 C L 89 14 111/70 04/27/21 04:23 36.9 C 83 20 103/63 04/27/21 00:03 85 18 112/75 04/27/21 00:00 90 Pulse Ox 04/27/21 08:42 96 04/27/21 04:23 95 04/27/21 00:03 94 04/27/21 00:00 PG Care Time/CCT Total # of Minutes Spent Total Time Spent with Patient: Total time spent is greater than 50% in coordination of care (as documented) at patient's floor/unit and/or counseling patient: 35 minutes with > 50% of that time spent assessing the patient, discussing goals of care with the patient, addressing symptoms and collaborating with care. Coding Level of Care Code 76136 Subseq Hosp Care Lvl 3 Diagnoses Palliative care encounter Z51.5 Situational anxiety F41.8 Primary adenocarcinoma of esophagus with metastasis C15.9 Chest pain R07.9 Chest pain type: unspecified Dysphagia R13.10 Dyspnea R06.00 Time Spent (min) 35 (1) Chest pain Chest pain type: unspecified Qualified Code(s): R07.9 - Chest pain, unspecified
[2021-04-27] MEDS ORDERED: LORazepam 1 MG TAB PO SCH (10:30)
[2021-04-27] MEDS: SENNOSIDES 8.8 MG/5 ML UDC PO SCH (12:03)
--- NOTE | 2021-04-27 12:46 | Discharge Summary ---
Date of Service April 27, 2021 Admission HPI Per Admitting Provider This is a 60 y/o male with a PMH of hypothyroidism, PORSHA on CPAP, metastatic adenocarcinoma of esophagus, known bilateral PE, and dyslipidemia who presents to the ED with progressive shortness of breath. He was recently admitted to this facility 04/18-04/21 with bilateral PE. Initially started on Lovenox then transitioned to Eliquis. Noted to have a small to moderate pleural effusion for which he was scheduled for repeat thoracentesis in two weeks. Last thoracentesis was on 04/14 - pt noted immediate improvement in respiratory status post tap. He has been following with oncology at [place], s/p FOLFOX on 03/30 (1 dose - could not tolerate due to nausea), also completed 12 radiation treatments. Recently transferred care to local oncology, Dr. Anderson. Seen this past week by palliative care to determine goals of care. Pt was scheduled with pulmonology in [place] on Monday for potential repeat thoracentesis for symptomatic relief. This morning, he noted some increased chest pain. He attempted to sit up around noon and became very short of breath with severe left-sided chest pain. When he was unable to catch his breath, his called EMS. In the ED, his pleural effusion has increased in size. Breathing improved with oxygen therapy and rest. He reports that his chest pain is manageable as long as he does not move around. He becomes short of breath if he lies flat so he prefers to be propped up in bed. Admission Exam Per Admitting Provider Constitutional: well developed and well nourished; no acute distress Eyes: + anicteric sclerae Neck: trachea midline Respiratory: no respiratory distress and does not use accessory muscles Auscultation: + diminished lung sounds (left base); no rales, no rhonchi and no wheezes Cardiovascular: Rate/Rhythm: regular rate and regular rhythm Heart Sounds: no gallop, no murmur and no cardiac rub Vessels: dorsalis pedis pulses present and radial pulses present Extremities: no pedal edema Gastrointestinal (Abdomen): Inspection/Auscultation: normal bowel sounds; abdomen not distended Percussion/Palpation: abdomen soft; abdomen nontender Musculoskeletal: Head/Neck/Chest: normocephalic, head atraumatic and neck supple Skin: no jaundice Neurologic: moves all extremities; no focal motor deficits Psychiatric: Affect: + tearful affect Mood: + anxious mood Principal Diagnosis Pleural effusion Discharge Exam General: A&Ox3 HENT: NCAT, MMM, EOMI Eyes: PERRLA Neck: Supple, normal range of motion CVS: normal rate and rhythm Resp: b/l creased breath sounds, left Pleurx catheter in place Abdomen: Soft, ND/NT, +BS Extremities: Absence of any edema Neuro: face symmetric, no gross focal deficits appreciated Skin: warm and dry, no rashes/lesions/errythema MSK: normal ROM, no joint swelling/erythema Discharge Data Allergies Allergy/AdvReac Type Severity Reaction Status Date / Time No Known Allergies Allergy Unverified 04/24/21 15:54 Consultations 04/24/21 16:37 ED Decision to Admit Stat 04/24/21 20:01 Consult Pulmonology Routine 04/25/21 11:44 Consult Pain Management Routine 04/26/21 13:09 Consult Palliative Care Routine 04/26/21 13:19 Consult Palliative Care Routine Ordered Studies 04/24/21 14:03 CT abd pelvis IV con only Stat CT angio chest PE protocol Stat 04/25/21 10:42 US point of care ultrasound Routine Hospital Course (1) Pleural effusion: 600cc taken off the right side with thoracentesis on 04/25. Pleurx catheter in place. No post-procedure complications; CXR without pneumothorax. Toradol for pain control and use opioids PRN. Patient and the family requested for palliative medicine evaluation given metastatic adenocarcinoma of the esophagus. Patient was discharged on home hospice. Pain medicine was consulted. Started on fentanyl 12 mcg patch every 72 hours, Lortab 15 mL every 6 hours if needed, continue with baclofen/Cymbalta Duration patient was doing okay. He was on 3 L of nasal cannula. Did report left side abdominal pain but overall was doing okay. Hemodynamically doing fine. (2) Elevated troponin: Patient denies any chest pain. Transthoracic echo without any wall motion abnormalities. Patient is hemodynamically doing okay. (3) Bilateral pulmonary embolism: Contineu with eliquis. (4) Dysphagia: Soft, mechanical diet-whatever he can tolerate-unrestricted diet. (5) Primary adenocarcinoma of esophagus with metastasis: plan as above. (6) Constipation due to opioid therapy: Try suppository, Miralax PRN. Cont Senna and Bisacodyl. Encouraged to ambulate as tolerated. May need relistor Total Time Total Time Spent Total Time Spent (In Minutes): 35 Discharge Plan Discharge Items Patient Disposition: Hospice - Home Reason For Visit: pleural effusion, sob Discharge Diagnosis: Pleural effusion Activity: Resume your previous activity Non-emergency contact: Primary Care Provider Call non-emergency contact if: your symptoms worsen Follow-up/Referrals: Anita Freeman CRNP [Outside Practitioners] - 04/29/21 3:30 pm (PLEASE NOTE THAT THIS IS A TELEHEALTH APPOINTMENT. PLEASE FOLLOW THE INSTRUCTIONS PROVIDED IN YOUR EMAIL TO ACCESS THE APPOINTMENT. IF YOU HAVE ANY QUESTIONS REGARDING THIS APPOINTMENT, PLEASE CALL ) Ryan Steven MD [Primary Care Provider] - (Date & Time 04/29/2021 9:00 AM Provider Ryan Steven MD [facility] [address] ) Diet: Heart Healthy Pending Studies at Discharge: No Stand-Alone Forms: [facility] [employer] Medications and DC Order Prescriptions: New pantoprazole 40 mg Tablet,Delayed Release (Dr/Ec) 40 mg PO QAM Qty: 30 RF: 0 lorazepam 1 mg Tablet 1 mg PO Q8H Qty: 30 RF: 0 simethicone [Mi-Acid Gas Relief(simethicon)] 80 mg Tablet,Chewable 80 mg PO Q6H PRN (Reason: abdominal distention) Qty: 30 RF: 0 fentanyl 12 mcg/hr Patch 72 Hour 12 mcg transdermal Q3D@0900 Qty: 5 RF: 0 hydrocodone-acetaminophen 7.5-325 mg/15 mL solution 15 ml PO Q6H PRN (Reason: pain) Qty: 120 RF: 0 Continued bisacodyl [Dulcolax (bisacodyl)] 5 mg Tablet,Delayed Release (Dr/Ec) 10 mg PO DAILY RF: 0 sennosides-docusate sodium [Senokot-S] 8.6-50 mg tablet 1 tab PO DAILY RF: 0 atorvastatin [Lipitor] 40 mg Tablet 40 mg PO DAILY RF: 0 ondansetron HCl 8 mg Tablet 8 mg PO Q8H PRN (Reason: Nausea) RF: 0 olanzapine 5 mg Tablet 5 mg PO HS RF: 0 prochlorperazine maleate 10 mg Tablet 10 mg PO Q6H PRN (Reason: Nausea) RF: 0 omeprazole 40 mg Capsule,Delayed Release(Dr/Ec) 40 mg PO DAILY RF: 0 baclofen 10 mg Tablet 10 mg PO DAILY RF: 0 levothyroxine [Synthroid] 112 mcg Tablet 112 mcg PO DAILY RF: 0 Eliquis 5 mg tablet 5 mg PO BID Qty: 74 RF: 1 guaifenesin [Mucinex] 600 mg Tablet Extended Release 12hr 600 mg PO Q12 7 Days Qty: 14 RF: 0 Discontinued lorazepam 0.5 mg Tablet 1 mg PO Q8H PRN (Reason: Anxiety) RF: 0 oxycodone 10 mg Tablet 10 mg PO Q4H PRN (Reason: Pain) RF: 0 morphine 15 mg Tablet Extended Release 15 mg PO Q12H Qty: 30 RF: 0 Discharge Orders: Discharge Order (Routine); Ordered 04/27/21 Ordered By: Nikki Crook Admission Data Admit Date/Time: 04/24/21 18:02 Attending Provider: Nikki Crook Admit Provider: Gloria Mcleod Primary Care Provider: Ryan Steven Other Providers: Gloria Mcleod ; Magan Carrera ; Rogelio Wilson ; [facility] ; Shana Granados
--- NOTE | 2021-04-27 14:38 | XRay Report ---
XR chest 1V portable CLINICAL HISTORY: Left pleural effusion with PleurX TECHNIQUE: Single frontal radiograph of the chest was obtained. Comparison: Comparison is made to chest one view 04/25/2021 FINDINGS: A right port catheter is unchanged. A left chest tube is unchanged. The cardiomediastinal silhouette is normal. Prominence and indistinctness of the vasculature is seen and there our bilateral curly B l isa noted, more conspicuous on the prior exam. Multifocal airspace opacities are seen. No evidence o f pleural effusion or pneumothorax. IMPRESSION: 1. Multifocal airspace opacities are unchanged. 2. No significant residual left pleural effusion is seen. No pneumothorax is seen. 3. Moderate pulmonary edema, increased from prior exam. ACT 112: Negative or not required by law. Electronically signed by: Heron Dominguez M.D. 04/27/2021 2:37 PM
--- NOTE | 2021-04-27 15:22 | Pulmonology Progress Note ---
Date of Service April 27, 2021 Assessment & Plan (1) Bilateral pulmonary embolism: (2) Primary adenocarcinoma of esophagus with metastasis: (3) Pleural effusion: Plan: Impression: 60-year-old male with reported stage IV adenocarcinoma of the esophagus although his outpatient clinical notes were not available to review. He is being treated from his PE but returned due to chest pain shortness of breath and has an increasing pleural effusion. Plans were to address the effusion in the outpatient setting however the patient has not been able to make it to that appointment. His pain control is inadequate. Recommendations: 1. Abnormal CT scan: Patient with known esophageal cancer. Final pathology of fluid shows no malignant cells. 2. Acute PE: Continue anticoagulation. Apixaban 5 mg p.o. twice daily 3. Pleural effusion: Pleurx catheter placed by Dr. Carrera on Monday. Patient's training today at bedside with drainage of Pleurx catheter. Advised patient to drain every other day and follow discharge. Keep a record of all output from the catheter. Paperwork completed and submitted for Pleurx supplies to be sent to the patient's home. successfully drain Pleurx catheter today without difficulty. 4. Disposition: He is DNR/DNI. Patient is meeting with palliative care. Anticipate discharge to hospice. Thank you for including us in the care of this patient. Pulmonary service will sign off at this time. Patient given phone number for pulmonary clinic in the event that there are any difficulties with his Pleurx catheter. Admission and Anticipated Discharge Date Admission Date: April 24, 2021 Subjective Attending: Dr. Jones Patient seen and examined at bedside. We drained his Pleurx catheter. I supervised his who performed the procedure. She feels comfortable in taking him home and draining the catheter. The patient denies any fever or chills. He still has significant shortness of breath. He has cough with deep inspiration. He denies any sputum production. Review of Systems Review of Systems: All systems reviewed & are unremarkable except as noted in Subjective Physical Exam Physical Exam: GENERAL : No acute distress EYES: No icterus, gaze conjugate NOSE: No evidence of epistaxis MOUTH: No lesions or candidiasis NECK: Supple LUNGS: Bibasilar crackles. No bronchospasm. Breath sounds to bilateral bases. HEART: Regular, rate controlled ABDOMEN: Soft, NT, ND, BS Present EXTREMITIES: No LE edema, pedal pulses intact NEURO: A&OX3 Results & Data Results & Data ([place]) Vital Signs (Past 12 Hours) Vital Signs Temp Pulse Pulse Pulse Resp BP BP 04/27/21 15:14 95 H 04/27/21 14:51 36.7 C 89 78 19 103/63 111/65 04/27/21 11:47 36.7 C 78 19 111/65 04/27/21 08:42 36.4 C L 89 14 111/70 04/27/21 08:00 74 04/27/21 04:23 36.9 C 83 20 103/63 Pulse Ox 04/27/21 15:14 04/27/21 14:51 95 04/27/21 11:47 95 04/27/21 08:42 96 04/27/21 08:00 04/27/21 04:23 95 Laboratory Results 04/25/21 02:20 04/25/21 02:20 Diagnostic Findings Chest X-Ray 04/27/21 14:14 XR chest 1V portable CLINICAL HISTORY: Left pleural effusion with PleurX TECHNIQUE: Single frontal radiograph of the chest was obtained. Comparison: Comparison is made to chest one view 04/25/2021 FINDINGS: A right port catheter is unchanged. A left chest tube is unchanged. The cardiomediastinal silhouette is normal. Prominence and indistinctness of the vasculature is seen and there our bilateral curly B lines noted, more conspicuous on the prior exam. Multifocal airspace opacities are seen. No evidence of pleural effusion or pneumothorax. IMPRESSION: 1. Multifocal airspace opacities are unchanged. 2. No significant residual left pleural effusion is seen. No pneumothorax is seen. 3. Moderate pulmonary edema, increased from prior exam. ACT 112: Negative or not required by law. Electronically signed by: Heron Dominguez M.D. 04/27/2021 2:37 PM Medications Administered Current Inpatient Medications Hydrocodone Bitart/Acetaminophen (Acetaminophen/Hydrocodone Elix 15 Ml/Cup Udp) 15 ml PO Q6H PRN PRN Reason: Pain Stop: 05/08/21 18:04 Last Admin: 04/27/21 06:11 Dose: 15 ml Documented by: Apixaban (Apixaban 5 Mg Tablet) 5 mg PO BID MARYAN Stop: 05/25/21 20:59 Last Admin: 04/27/21 08:36 Dose: 5 mg Documented by: Baclofen (Baclofen 10 Mg Tab) 10 mg PO DAILY MARYAN Stop: 05/25/21 08:59 Last Admin: 04/27/21 08:40 Dose: 10 mg Documented by: Bisacodyl (Bisacodyl 5 Mg Tabec) 10 mg PO DAILY MARYAN Stop: 05/25/21 08:59 Last Admin: 04/27/21 08:40 Dose: 10 mg Documented by: Al Hydrox/Mg Hydrox/Simethicone 50 ml/Diphenhydramine HCl 125 mg/Lidocaine HCl 40 ml/Sucralfate 10,000 mg/ [employer]IFIER 1 ea 0 ml PO Q4H PRN PRN Reason: throat pain Stop: 05/24/21 21:41 Fentanyl (Fentanyl 12 Mcg/Hr Tdsy) 12 mcg TD Q3D@0900 MARYAN Stop: 05/10/21 08:59 Last Admin: 04/26/21 09:53 Dose: 12 mcg Documented by: Glycerin (Glycerin Adult 12 Supp/Box Supp) 1 supp ID DAILY PRN PRN Reason: Constipation Stop: 05/26/21 05:59 Last Admin: 04/26/21 15:58 Dose: 1 supp Documented by: Guaifenesin (Guaifenesin Sugar Free 200 Mg/10 Ml Udc) 200 mg PO BID MARYAN Stop: 05/27/21 04:14 Last Admin: 04/27/21 06:11 Dose: 200 mg Documented by: Heparin Sodium (Porcine) (Heparin 100 Unit/Ml 5ml Flush) 5 ml FLUSH PRN PRN PRN Reason: Flush Stop: 05/26/21 03:38 Levothyroxine Sodium (Levothyroxine Sodium 112 Mcg Tablet) 112 mcg PO DAILYBB MARYAN Stop: 05/25/21 06:29 Last Admin: 04/27/21 06:11 Dose: 112 mcg Documented by: Lorazepam (Lorazepam 1 Mg Tab) 1 mg PO Q8H MARYAN Stop: 05/27/21 10:29 Last Admin: 04/27/21 12:03 Dose: 1 mg Documented by: Methylnaltrexone [place] (Methylnaltrexone [place] 12 Mg/0.6 Ml Vial) 12 mg SQ Q2D@0900 [facility] Stop: 05/26/21 08:59 Last Admin: 04/26/21 09:56 Dose: 12 mg Documented by: Miscellaneous (Fentanyl Patch Remove & Waste) 1 ea N/A Q3D@0859 [facility] Stop: 05/26/21 08:58 Last Admin: 04/26/21 09:54 Dose: Not Given Documented by: Miscellaneous (Check Fentanyl Patch Placement) 1 ea N/A QS [facility] Stop: 05/26/21 15:59 Last Admin: 04/27/21 08:36 Dose: 1 ea Documented by: Morphine Sulfate (Morphine Sulfate 2 Mg/Ml [place]) 2 mg IV Q3H PRN PRN Reason: Pain Stop: 05/09/21 03:10 Last Admin: 04/27/21 12:04 Dose: 2 mg Documented by: Olanzapine (Olanzapine 5 Mg Tablet) 5 mg PO HS [facility] Stop: 05/24/21 20:59 Last Admin: 04/26/21 21:06 Dose: 5 mg Documented by: Ondansetron HCl (Ondansetron Inj 2 Mg/Ml 2 Ml Vial) 4 mg IV Q6H PRN PRN Reason: Nausea Stop: 05/24/21 18:04 Pantoprazole Sodium (Pantoprazole 40 Mg Tab) [facility] [place]: 05/25/21 08:59 Last Admin: 04/27/21 08:36 Dose: 40 mg Documented by: Sennosides (Sennosides 8.8 Mg/5 Ml Udc) 8.8 mg PO QAM [facility] Stop: 05/25/21 08:59 Last Admin: 04/27/21 12:03 Dose: 8.8 mg Documented by: Simethicone (Simethicone 80 Mg Chew) 80 mg PO Q6H PRN PRN Reason: gas pain Stop: 05/26/21 08:33 PG Care Time/CCT Total # of Minutes Spent Total Time Spent with Patient: Total time spent is greater than 50% in coordination of care (as documented) at patient's floor/unit and/or counseling patient: Coding Level of Care Code 92402 Subseq Hosp Care Lvl 2 Diagnoses Bilateral pulmonary embolism I26.99 Primary adenocarcinoma of esophagus with metastasis C15.9 Pleural effusion J90 Time Spent (min) 30
== END 2021-04-27 15:42 | disposition hospice, home (50) | DRG 186 ==
LOC: ED 13:34 → SUATTDRO 18:02 → EDINP 18:02 → 2S 19:55